=== PATIENT | female | born 1995 | race African-American/Black ===

== ENCOUNTER 2019-11-21 12:20 | Emergency (ER) | payer OTHER, SELFPAY ==
--- NOTE | ~2019-11-21 | US_ITS ---
EXAMINATION: US OB <=14 wk fetus w TV DATE: 11/21/2019 16:06 INDICATION: Vaginal spotting. Pelvic pain. TECHNIQUE: Real-time transabdominal and transvaginal obstetric ultrasound. FINDINGS: No prior studies for comparison. The uterus measures 9.8 x 7.2 x 6.4 cm. There is an intrauterine gestational sac, with pole maine ntified. The crown rump length measures 0.33 cm, which correlates with a estimated gestational age o f 6 weeks 0 days. Gestational sac diameter measures 1.64 cm corresponding to 6 week 2 day gestation. heart tones are identified measuring 99 bpm. There is a small subchorionic hemorrhage measuring 2.6 x 2.1 x 0.7 cm. There are bilateral ovarian cysts, largest on the right measuring 2.8 cm maximum dimension in largest on the left measuring 1.6 cm. Small amount of free fluid in the pelvis. IMPRESSION: 1. SL IUP with an EGA of 6 weeks, 1 days (EDC by current ultrasound of 07/15/2020). 2: Small subchorionic hemorrhage. 3: Bilateral ovarian cysts, largest in the right ovary measuring 2.8 x 2.6 x 2.4 cm. Reviewed, dictated and finalized at location A. STANT CREDIT MANAGER IMPRESSION: 1. SL IUP with an EGA of 6 weeks, 1 days (EDC by current ultrasound of 07/15/20 20). 2: Small subchorionic hemorrhage. 3: Bilateral ovarian cysts, largest in the right ovary measuring 2.8 x 2.6 x 2. 4 cm.
[2019-11-21 12:25] VITALS: BP 135/82; PULSE 106; RESP 20; TEMP 36.5; O2SAT 100
--- NOTE | 2019-11-21 12:48 | ED.FEMALEGU ---
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 She states that the pain sometimes radiates to her LLQ and describes the cramps as being worse than menstrual cramps. Pt denies any N/V/D, or dysuria. She notes that she has scheduled an appointment with an OB group, but has not been assigned an OBGYN yet. 2, Para 1, Abortus 0. Pt notes having a Hx of asthma and is a current every day smoker, but denies alcohol use. Pt reports having NKA. MD elicited complaint: vaginal bleeding (spotting) and other (RLQ ABD pain) Onset (ago): day(s) (a couple of days) Location of symptoms: RLQ Female Urogenital Radiation: LLQ Quality of pain: cramping Consistency: progressively worsening Patient : Yes (6 weeks) Related Data : 2 Para: 1 Total number of abortions (spontaneous and elective): 0 Home Medications Medication Instructions Recorded Confirmed 11/21/19 albuterol sulfate 11/21/19 Allergies Allergy/AdvReac Type Severity Reaction Status Date / Time No Known Allergies Allergy Verified 11/21/19 12:57 Review of Systems Review of Systems: All systems reviewed & are unremarkable except as noted in HPI and below Gastrointestinal: Gastrointestinal: Reports GI cramping (RLQ radiating to LLQ), Denies diarrhea, Denies nausea and Denies vomiting Genitourinary: Genitourinary: Reports abnormal vaginal bleeding (spotting) and Denies dysuria PMF Past Medical History Medical History (Updated 11/21/19 @ 15:24 by Kameron Rich MD) Asthma Surgical History Surgical History (Updated 11/21/19 @ 14:12 by KASH Juarez) Surgical history unknown Social History Social History (Updated 11/21/19 @ 14:13 by KASH Juarez) Smoking status: Current every day smoker Gender identity (if verbalized by the patient): Female Exam Narrative: Exam Narrative: General appearance: Well-developed, well-nourished Skin: Normal color Head: Normocephalic, nontraumatic Eyes: Clear conjunctiva ENT: Oropharynx normal, ears normal, nose normal Neck: Supple, nontender Chest and respiratory: Airway patent, no respiratory distress, no accessory muscle use Heart: Regular rate/rhythm Abdomen: Soft, nontender, no organomegaly, quiet bowel sounds Vascular: Normal peripheral pulses, normal capillary refill. 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, no gross motor deficit : General: Yes bladder normal to palpation and Yes no CVA tenderness External Female Exam: normal external appearance Speculum Exam - Vagina: normal appearance of the vagina and normal vaginal discharge Other: No vaginal bleeding Course Course Emergency Course: Unchanged, patient did not have any active bleeding since arrival to the emergency room until the time of discharge Vital Signs Vital signs: Vital Signs Temperature 36.5 C 11/21/19 12:25 Pulse Rate 106 H 11/21/19 12:25 Respiratory Rate 20 11/21/19 12:25 Blood Pressure 135/82 11/21/19 12:25 Pulse Oximetry 100 11/21/19 12:25 Temperature 36.5 C 11/21/19 12:25 Pulse Rate 106 H 11/21/19 12:25 Respiratory Rate 20 11/21/19 12:25 Blood Pressure 135/82 11/21/19 12:25 Pulse Oximetry 100 11/21/19 12:25 MDM - Female Genitourinary MDM Narrative Medical
[2019-11-21 13:15] LABS: Basophils Absolute Auto 0.1 K/mm3 (0.0-0.1); Basophils Percent Auto 0.9 % (0.2-1.2); Eosinophils Absolute Auto 0.3 K/mm3 (0-0.3); Eosinophils Percent Auto 4.2 % (0-4.4); Hemoglobin 11.4 g/dL (12.0-15.0); Immature Granulocyte Absolute 0.02 K/mm3 (0.00-0.031); Immature Granulocyte Percent A 0.3 % (0-0.5); Lymphocytes Absolute Auto 1.29 K/mm3 (0.9-3.2); Lymphocytes Percent Auto 18.7 % (18.3-44.2); Mean Corpuscular HGB Conc 33.5 g/dl (32-36); Mean Corpuscular Hemoglobin 28.8 pg (26-34); Mean Corpuscular Volume 85.9 fl (80-100); Mean Platelet Volume 9.6 fl (7.4-10.4); Monocytes Percent Auto 14.2 % (2.6-8.5); Neutrophils Absolute Auto 4.3 K/mm3 (1.3-6.7); Neutrophils Percent Auto 61.7 % (45.5-73.1); Platelet Count Result 343 k/mm3 (150-375); Red Blood Count 3.96 M/mm3 (4.2-5.4); Red Cell Distribution Width 13.3 % (11.5-14.5); White Blood Count 6.9 K/mm3 (4.5-10.0)
== END 2019-11-21 16:26 | disposition home or self-care (01) ==
PROVIDERS: Emergency Provider Emergency Medicine
DX: O26.891 Other specified pregnancy related conditions, first trimester (principal); R10.31 Right lower quadrant pain; O99.511 Diseases of the respiratory system complicating pregnancy, first trimester; J45.909 Unspecified asthma, uncomplicated; O99.331 Smoking (tobacco) complicating pregnancy, first trimester; F17.200 Nicotine dependence, unspecified, uncomplicated; Z3A.01 Less than 8 weeks gestation of pregnancy
CPT/HCPCS: 36415; 76801; 76817; 84702; 85025; 86850; 86900; 86901; 99284

== ENCOUNTER 2020-01-23 19:45 | Emergency (ER) | payer OTHER, SELFPAY ==
--- NOTE | ~2020-01-23 | XR_ITS ---
EXAMINATION: XR chest 1V portable INDICATION: Shortness of breath TECHNIQUE: Portable AP chest at 2025 COMPARISON: None available FINDINGS: There are minimal airspace opacities of the lung bases.. There is no pleural effusion or pn eumothorax. The cardiomediastinal silhouette is normal. The visualized bones and soft tissues are unr emarkable. IMPRESSION: 1. Minimal airspace opacities of the lung bases, consistent with atelectasis versus pneumonia. Reviewed, dictated and finalized at location A. IMPRESSION: 1. Minimal airspace opacities of the lung bases, consistent with atelectasis ve rsus pneumonia.
[2020-01-23 19:46] VITALS: BP 139/79; PULSE 99; RESP 24; TEMP 36.1; O2SAT 100
--- NOTE | 2020-01-23 20:05 | ED.ASTHMA ---
HPI - Asthma General Chief Complaint: Asthma Stated Complaint: sob/asthma Time Seen by Provider: 01/23/20 20:03 History of Present Illness HPI Narrative: Shortness of breath and chest tightness since last night. Associated with wheezing. She has asthma, but ran out of albuterol. She tried using someone elses nebulizer without improvement. She notes that this is worse than her typical asthma symptoms. No fever, cough. She is currently . Related Data Home Medications Medication Instructions Recorded Confirmed 11/21/19 albuterol sulfate 11/21/19 Allergies Allergy/AdvReac Type Severity Reaction Status Date / Time No Known Drug Allergies Allergy Unknown Verified 11/22/19 17:05 Review of Systems Review of Systems: All systems reviewed & are unremarkable except as noted in HPI and below Constitutional: Constitutional: Denies fever(s) ENT: Denies sore throat Cardiovascular: Cardiovascular: Denies chest pain Respiratory: Respiratory: Denies cough, Reports dyspnea and Reports wheezing Gastrointestinal: Gastrointestinal: Denies abdominal pain and Reports nausea Genitourinary: Genitourinary: Denies dysuria Neurologic: Denies numbness and Denies weakness [facility] Past Medical History Medical History Asthma Surgical History Surgical History Surgical history unknown Social History Social History Smoking status: Current every day smoker Gender identity (if verbalized by the patient): Female Exam Const: General: no acute distress and alert Orientation/consciousness: patient oriented x3 HENMT: Head: normal to inspection Chest: Chest palpation & inspection: normal inspection of the chest Resp: Effort & Inspection: tachypneic Auscultation: rhonchi lower bilaterally Cardio: Rate: regular rate Rhythm: regular rhythm GI: Other: Gravid abdomen Skin: General skin exam: normal color Neuro: General: patient oriented x3 and moves all extremities Speech: normal speech Extrem: General: normal to inspection and no edema Psych: Appearance: grossly normal Mental Status: mental status grossly normal Affect: normal affect Course Vital Signs Vital signs: Vital Signs Temperature 36.1 C L 01/23/20 19:46 Pulse Rate 99 01/23/20 19:46 Respiratory Rate 24 H 01/23/20 19:46 Blood Pressure 139/79 01/23/20 19:46 Pulse Oximetry 100 01/23/20 19:46 Temperature 36.1 C L 01/23/20 19:46 Pulse Rate 99 01/23/20 19:46 Respiratory Rate 24 H 01/23/20 19:46 Blood Pressure 139/79 01/23/20 19:46 Pulse Oximetry 100 01/23/20 21:51 MDM - Asthma MDM Narrative Medical decision making narrative: Lungs relatively clear on exam. CXR shows minimal bilateral basilar infiltrates. I will start azithromicin, refill her albuterol, and send testing for COVID-19. She does not reqire admission at this time. Differential Diagnosis Differential diagnosis: Likely Acute exacerbation, Pneumonia and other (COVID-19) Medical Records Attestation: I reviewed the patient's medical records. Lab Data Attestation: I reviewed the patient's lab results. Labs: Lab Results 01/23/20 Range/Units 21:57 SARS-CoV-2 RNA (RT-PCR) Pending Discharge Plan Discharge Clinical Impression: Community acquired pneumonia Qualifiers: Laterality: unspecified laterality Qualified Code(s): J18.9 - Pneumonia, unspecified organism Patient Disposition: Home, Self-Care Condition: Stable Instructions: Antibiotic Form, Community Acquired Pneumonia (ED) Prescriptions: New albuterol sulfate 90 mcg/actuation aerosol powdr breath activated 2 inhalation INHALATION Q4H PRN (Reason: shortness of breath or wheezing) Qty: 1 RF: 0 azithromycin 250 mg tablet See Rx Instructions .ROUTE .COMPLEX Qty: 6 RF: 0 No Action P
[2020-01-23] MEDS: AZITHROMYCIN 250 MG TABLET 500 MG PO (21:26)
[2020-01-23 21:51] VITALS: O2SAT 100
--- NOTE | 2020-01-23 22:01 | PC.NURSE ---
COVID 19 test performed and sent to lab.
[2020-01-24 15:09] LABS: SARS-CoV-2 RNA PCR Negative
== END 2020-01-23 21:48 | disposition home or self-care (01) ==
PROVIDERS: Emergency Provider Emergency Medicine
DX: J18.9 Pneumonia, unspecified organism (principal); Z20.828 Contact with and (suspected) exposure to other viral communicable diseases; F17.200 Nicotine dependence, unspecified, uncomplicated
CPT/HCPCS: 71045; 87635; 99283; A9270; U0003

== ENCOUNTER 2020-02-23 01:25 | Observation (INO) | payer OTHER, SELFPAY ==
[2020-02-23] VITALS (14 sets, daily range): BP systolic 123–145; BP diastolic 69–90; PULSE 89–105; TEMP 36.4; O2SAT 88–98
--- NOTE | ~2020-02-23 | US_ITS ---
EXAMINATION: US OB limited DATE: 02/23/2020 07:38 INDICATION: Abdominal pain. Check placenta. TECHNIQUE: Real-time ultrasound of the pelvis was performed. The interpreting radiologist was not pre sent for the study. COMPARISON: None. FINDINGS: There is a single living fetus in vertex presentation. The placenta is anterior and not low-lying wi th caudal margin 7.4 cm from the internal cervical os. There are several small hypoechoic venous henriquez s within the placenta. No evident subchorionic hematoma. heart rate is 154 beats per minute (bp m). The amniotic fluid volume is subjectively normal. IMPRESSION: 1. Single living fetus in vertex presentation with heart rate of 154 bpm. 2. Several venous lakes within the anterior placenta which is not low-lying and with no evident subch orionic hematoma. Reviewed, dictated and finalized at location A. IMPRESSION: 1. Single living fetus in vertex presentation with heart rate of 154 bpm . 2. Several venous lakes within the anterior placenta which is not low-lying and with no evident subchorionic hematoma.
--- NOTE | 2020-02-23 02:48 | OBADM ---
This patient, Sandhya Munoz, admitted to the OB room OB Post 117 for observation. Patient/family oriented to hospital policies and general routines including ID bracelet, bed and alarms, visiting hours, pain management, procedures, bathroom and other care routines, personal items, smoking policy, room service/diet, and visiting hours. Patient/Family are encouraged to report perceived risks to care and to ask questions if they do not understand what they are told or what they should do.
[2020-02-23 02:49] LABS: Add Urine Microscopic? NO; Appearance Urine Clear (Clear); Bacteria Urine Trace /hpf; Bilirubin Urine Negative (Negative); Blood Urine Negative (Negative); Color Urine Yellow (Yellow); Glucose Urine UA Negative (Negative); Ketones Urine Negative (Negative); Leukocyte Esterase Ur Negative LEU/UL (NEGATIVE); Mucus Urine Rare /lpf; Nitrate Urine Negative (Negative); Protein Urine Negative (Negative); RBC Urine 0-2 /hpf (0-2); Specific Grav Ur 1.021 (1.001-1.035); Squamous Epithelial Cell Urine Occasional /hpf (Few); Urobilinogen Urine Negative mg/dL (<2.0); WBC Urine 0-3 /hpf (0-3)
[2020-02-23] MEDS: CYCLOBENZAPRINE HCL 5 MG TABLET PO (03:41)
[2020-02-23 03:42] LABS: Basophils Absolute Auto 0.1 K/mm3 (0.0-0.1); Basophils Percent Auto 0.4 % (0.2-1.2); Eosinophils Absolute Auto 0.8 K/mm3 (0-0.3); Eosinophils Percent Auto 6.2 % (0-4.4); Hematocrit 29.9 % (37.0-47.0); Hemoglobin 10.1 g/dL (12.0-15.0); Immature Granulocyte Percent A 0.7 % (0-0.5); Mean Corpuscular HGB Conc 33.8 g/dl (32-36); Mean Corpuscular Hemoglobin 30.1 pg (26-34); Monocytes Absolute Auto 1.2 K/mm3 (0.1-0.6); Monocytes Percent Auto 8.6 % (2.6-8.5); Neutrophils Absolute Auto 8.5 K/mm3 (1.3-6.7); Neutrophils Percent Auto 62.1 % (45.5-73.1); Platelet Count Result 324 k/mm3 (150-375); Red Blood Count 3.36 M/mm3 (4.2-5.4); Red Cell Distribution Width 13.2 % (11.5-14.5); White Blood Count 13.7 K/mm3 (4.5-10.0)
[2020-02-23 03:46] LABS: Alanine Aminotransferase 36 U/L (4-35); Albumin Level 3.8 g/dL (3.5-5.1); Alkaline Phosphatase 57 U/L (38-126); Aspartate Amino Transferase 34 U/L (14-36); Bilirubin,Total 0.1 mg/dL (0.2-1.3); Blood Urea Nitrogen 9 mg/dL (7-17); Calcium 9.1 mg/dL (8.4-10.2); Carbon Dioxide 20 mmol/L (22-30); Chloride 106 mmol/L (98-107); Estimated Glomerular Filt Rate > 60; Glucose 88 mg/dL (65-105); Sodium 134 mmol/L (137-145); Uric Acid 2.8 mg/dL (2.5-7.5)
--- NOTE | 2020-02-23 08:00 | PC.NURSE ---
Dr. Larose at bedside. Ultrasound results reviewed and labs results seen. Discussed plan of care with pt. LUPER 154 on ultrasound. May D/C home with pain medication sent to pharmacy.
--- NOTE | 2020-02-23 08:03 | PM.IMHP ---
H&P: HPI History of Present Illness Chief complaint: Contractions Narrative: Sandhya Munoz is a 25 year old female 2 para 1001 at 20 weeks gestation who presents for lower abdominal pain. She has sharp bilateral lower abdominal pain. It radiates into her vulva. It is worse with movement. It is sharp. It is intermittent. It lasts minutes. Rest is palliative, movement is provocative. She denies any vaginal bleeding or watery vaginal discharge. She denies any contractions. She denies any nausea, vomiting, fever, chills. She denies any chest pain or shortness of breath. Review of Systems Constitutional: Constitutional: Reports no additional constitutional complaints, Denies fatigue, Denies headache(s), Denies lethargy and Denies weakness Eyes: Eyes: Reports no additional eye complaints, Denies blurry vision and Denies photophobia ENT: Reports as per HPI, Denies headache(s) and Denies neck pain Cardiovascular: Cardiovascular: Denies chest pain, Denies diaphoresis, Denies leg edema, Denies palpitations and Denies dyspnea Respiratory: Respiratory: Denies hemoptysis, Denies dyspnea and Denies wheezing Gastrointestinal: Gastrointestinal: Denies abdominal pain, Denies melena, Denies bloating, Denies hematochezia, Denies nausea and Denies vomiting Genitourinary: Genitourinary: Reports no additional female genitourinary complaints Musculoskeletal: Musculoskeletal: Denies joint swelling, Denies neck pain, Denies numbness and Denies stiffness Neurologic: Denies Abnormal speech present, Denies confusion, Denies headache(s), Denies numbness and Denies weakness Psychiatric: Psychiatric: Denies anxiety, Denies confusion, Denies depression, Denies homicidal ideation and Denies suicidal ideation Endocrine: Endocrine: Denies fatigue and Denies palpitations Allergic/Immunologic: Allergic/Immunologic: Denies wheezing [facility] Social History Social History Smoking status: Current every day smoker Gender identity (if verbalized by the patient): Female Meds Home Medications and Allergies Home Medications Medication Instructions Recorded Confirmed Type 11/21/19 History albuterol sulfate 11/21/19 History albuterol sulfate 2 inhalation INHALATION Q4H PRN #1 01/23/20 Rx each azithromycin See Rx Instructions .ROUTE 01/23/20 Rx .COMPLEX #6 tablet Allergies Allergy/AdvReac Type Severity Reaction Status Date / Time No Known Drug Allergies Allergy Unknown Verified 11/22/19 17:05 Vital Signs Vital Signs - 24 hr 02/23/20 01:50 02/23/20 01:55 02/23/20 01:57 Pulse Rate 91 Blood Pressure 136/71 Pulse Oximetry 96 96 02/23/20 02:00 02/23/20 02:05 02/23/20 02:10 Pulse Rate 101 H Blood Pressure 123/90 Pulse Oximetry 96 97 98 02/23/20 02:11 02/23/20 02:15 02/23/20 02:16 Pulse Rate 90 Blood Pressure 134/76 Pulse Oximetry 97 88 L 02/23/20 02:18 02/23/20 02:21 02/23/20 03:46 Pulse Rate 90 97 Blood Pressure 132/80 145/73 H Pulse Oximetry 96 02/23/20 07:10 Pulse Rate 97 Blood Pressure 130/69 Pulse Oximetry Exam Const: General: healthy appearing, comfortable and no acute distress; No confusion Orientation/consciousness: No confusion Eyes: Direct Ophthalmoscopy: No photophobia Resp: Auscultation: clear to auscultation bilaterally, no rales, no rhonchi and no wheezes Cardio: Rate: regular rate Heart sounds: no click, no murmurs and no rubs GI: Inspection: non-distended GI Palp: No abdominal tenderness Auscultation: normal bowel sounds : Manual OB Exam: dilated (Closed, thick, high) Neuro: General: No confusion Speech: No Abnormal speech present Extrem: General: normal to inspection, no pedal edema and no calf tenderness H&P: Results Labs Labs: Short CBC 02/23/20 Range/Units 03:28 WBC 13.7 H (4.5-10.0) K/mm3 Hgb 10.1 L (12.0-15.0) g/dL Hct 29.9 L (37.0-47.0)
== END 2020-02-23 09:06 | disposition home or self-care (01) ==
PROVIDERS: Advanced Practice Midwife; Admitting Provider Obstetrics & Gynecology; Visit Provider Obstetrics & Gynecology
DX: O26.892 Other specified pregnancy related conditions, second trimester (principal); R10.2 Pelvic and perineal pain; O99.332 Smoking (tobacco) complicating pregnancy, second trimester; F17.210 Nicotine dependence, cigarettes, uncomplicated; Z3A.20 20 weeks gestation of pregnancy
CPT/HCPCS: 36415; 76815; 80053; 81003; 84550; 85025; 87086; A9270; G0378; G0379

== ENCOUNTER 2020-04-01 14:24 | Observation (INO) | payer OTHER, SELFPAY ==
[2020-04-01 14:50] VITALS: BMI 32.5
[2020-04-01 16:08] LABS: Add Urine Microscopic? NO; Appearance Urine Clear (Clear); Bilirubin Urine Negative (Negative); Blood Urine Negative (Negative); Color Urine Straw (Yellow); Glucose Urine UA Negative (Negative); Ketones Urine Negative (Negative); Leukocyte Esterase Ur Negative LEU/UL (NEGATIVE); Nitrate Urine Negative (Negative); Protein Urine Negative (Negative); Specific Grav Ur 1.015 (1.001-1.035); Urobilinogen Urine Negative mg/dL (<2.0)
[2020-04-01 16:26] VITALS: BP 121/76; PULSE 87
--- NOTE | 2020-04-30 07:39 | P.PNOB_ITS ---
OB - Triage/Final Diagnosis Visit Information Date of evaluation: 04/01/20 Evaluation Laboratory results: Laboratory Tests 04/01/20 15:46 Urine Color Straw Urine Appearance Clear Urine pH 7.0 Ur Specific [place] 1.015 Urine Protein Negative Urine Glucose (UA) Negative Urine Ketones Negative Ur Blood (Man) Negative Urine Nitrate Negative Urine Bilirubin Negative Urine Urobilinogen Negative Ur Leukocyte Esterase Negative Final Diagnosis (1) False labor: Code(s): O47.9 - False labor, unspecified Status: Acute
== END 2020-04-01 16:55 | disposition home or self-care (01) ==
PROVIDERS: Admitting Provider Obstetrics & Gynecology; Visit Provider Obstetrics & Gynecology
DX: O47.02 False labor before 37 completed weeks of gestation, second trimester (principal); Z3A.25 25 weeks gestation of pregnancy
CPT/HCPCS: 81003; 87086; G0378; G0379

== ENCOUNTER 2020-04-15 14:38 | Outpatient (RCR) | payer OTHER, SELFPAY ==
[2020-04-15 16:17] LABS: Hematocrit 29.8 % (37.0-47.0); Hemoglobin 9.9 g/dL (12.0-15.0)
[2020-04-15 16:31] LABS: Glucose 1 Hour PP 50gm Dose 126 mg/dL
[2020-04-15 17:10] LABS: HIV 1/2 Ab P24 Ag Result Negative (Negative)
[2020-04-16 11:22] LABS: Rapid Plasma Reagin Non-Reactive (NonReactive)
[2020-04-16] MEDS: RHO(D) IMMUNE GLOBULIN 300 MCG SYRINGE IM (14:30)
== END 2020-07-14 23:59 | disposition home or self-care (01) ==
LOC: ANHLAB 14:38
PROVIDERS: Visit Provider Obstetrics & Gynecology
DX: Z29.13 Encounter for prophylactic Rho(D) immune globulin (principal); Z11.4 Encounter for screening for human immunodeficiency virus [HIV]; O36.0130 Maternal care for anti-D [Rh] antibodies, third trimester, not applicable or unspecified; Z3A.00 Weeks of gestation of pregnancy not specified
CPT/HCPCS: 36415; 82947; 85014; 85018; 85461; 86592; 86703; 90384; 96372; G0432; J2790

== ENCOUNTER 2020-04-30 11:59 | Outpatient (RCR) | payer OTHER, SELFPAY ==
--- NOTE | ~2020-04-30 | US_ITS ---
EXAMINATION: US OB follow up DATE: 04/30/2020 13:21 INDICATION: Diabetes and growth assessment, third trimester TECHNIQUE: Real-time ultrasound of the pelvis was performed. The interpreting radiologist was not pre sent for the study. COMPARISON: 02/23/2020 FINDINGS: There is a single living fetus in vertex presentation. The placenta is fundal. cardia c activity and movement are noted. heart rate is 130 beats per minute (bpm). The amniotic fluid index is 12.2 cm which is normal. The following biometric data were obtained: Biparietal diameter (BPD): 6.9 cm; head circumference (HC): 25.3 cm; abdominal circumference (AC): 23 .8 cm; femur length (FL): 5.2 cm. These measurements are concordant. Estimated weight is 1161 g +/- 174 g, which correlates with the 4th percentile when 07/12/2020 i s used as estimated date of delivery. As single measurements, these parameters are each equal to the following estimated gestational ages w ith ranges of +/- 2 standard deviations: BPD: 28 weeks 0 days +/- 2 weeks 1 days. HC: 27 weeks 4 days +/- 2 weeks 0 days. AC: 28 weeks 1 days +/- 2 weeks 1 days. FL: 28 weeks 0 days +/- 2 weeks 1 days. estimated gestational age based solely on measurements from this exam is 28 weeks 0 days +/- 2 weeks 0 days. IMPRESSION: 1. Single living fetus in vertex presentation. 2. Normal amniotic fluid index. 3. Estimated weight is 1161 g +/- 174 g, which correlates with the 4th percentile when 0 is used as estimated date of delivery. Reviewed, dictated and finalized at location B. IMPRESSION: 1. Single living fetus in vertex presentation. 2. Normal amniotic fluid index. 3. Estimated weight is 1161 g +/- 174 g, which correlates with the 4th pe rcentile when 07/12/2020 is used as estimated date of delivery.
[2020-04-30 13:53] VITALS: BP 135/69; PULSE 98
== END 2020-07-04 09:57 | disposition home or self-care (01) ==
LOC: ANHOBOP 11:59
PROVIDERS: Visit Provider Obstetrics & Gynecology
DX: O36.8130 Decreased fetal movements, third trimester, not applicable or unspecified (principal); Z3A.29 29 weeks gestation of pregnancy
CPT/HCPCS: 59025; 76816

== ENCOUNTER 2020-05-30 12:27 | Outpatient (CLI) | payer OTHER, SELFPAY ==
[2020-05-30] VITALS (7 sets, daily range): BP systolic 125–135; BP diastolic 70–89; PULSE 94–101
[2020-05-30 13:27] LABS: Basophils Absolute Auto 0.1 K/mm3 (0.0-0.1); Basophils Percent Auto 0.4 % (0.2-1.2); Eosinophils Absolute Auto 0.3 K/mm3 (0-0.3); Eosinophils Percent Auto 2.9 % (0-4.4); Hematocrit 30.9 % (37.0-47.0); Hemoglobin 10.2 g/dL (12.0-15.0); Immature Granulocyte Absolute 0.08 K/mm3 (0.00-0.031); Immature Granulocyte Percent A 0.7 % (0-0.5); Lymphocytes Absolute Auto 1.94 K/mm3 (0.9-3.2); Lymphocytes Percent Auto 16.6 % (18.3-44.2); Mean Corpuscular Hemoglobin 29.1 pg (26-34); Mean Platelet Volume 9.7 fl (7.4-10.4); Monocytes Absolute Auto 0.9 K/mm3 (0.1-0.6); Monocytes Percent Auto 7.6 % (2.6-8.5); Neutrophils Absolute Auto 8.4 K/mm3 (1.3-6.7); Neutrophils Percent Auto 71.8 % (45.5-73.1); Platelet Count Result 348 k/mm3 (150-375); Red Blood Count 3.51 M/mm3 (4.2-5.4); Red Cell Distribution Width 13.3 % (11.5-14.5); White Blood Count 11.7 K/mm3 (4.5-10.0)
[2020-05-30 13:40] LABS: Alanine Aminotransferase 22 U/L (4-35); Albumin Level 4.1 g/dL (3.5-5.1); Alkaline Phosphatase 95 U/L (38-126); Anion Gap 9 mmol/L (8-16); Aspartate Amino Transferase 31 U/L (14-36); Bilirubin,Total 0.7 mg/dL (0.2-1.3); Blood Urea Nitrogen 9 mg/dL (7-17); Calcium 9.2 mg/dL (8.4-10.2); Carbon Dioxide 21 mmol/L (22-30); Chloride 105 mmol/L (98-107); Estimated Glomerular Filt Rate > 60; Glucose 69 mg/dL (65-105); Sodium 135 mmol/L (137-145); Uric Acid 3.8 mg/dL (2.5-7.5)
--- NOTE | 2020-05-30 14:13 | PC.NURSE ---
Constantino TAMAYOM informed of blood work results, reactive NST, and BP's. Pt just voided for me. OK to discharge pt to home with Hyplertension in Pregancy precautions.
[2020-05-30 14:39] LABS: Add Urine Microscopic? YES; Appearance Urine Clear (Clear); Bacteria Urine Trace /hpf; Bilirubin Urine Negative (Negative); Blood Urine Negative (Negative); Color Urine Yellow (Yellow); Glucose Urine UA Negative (Negative); Ketones Urine 1+ mg/dL (Negative); Leukocyte Esterase Ur Negative LEU/UL (Negative); Mucus Urine Rare /lpf; Nitrate Urine Negative (Negative); Protein Urine Negative (Negative); RBC Urine 0-2 /hpf (0-2); Specific Grav Ur 1.018 (1.001-1.035); Squamous Epithelial Cell Urine Occasional /hpf (Few); Urobilinogen Urine Negative mg/dL (<2.0); WBC Urine 0-3 /hpf
[2020-05-30 14:47] LABS: Creatinine Urine 127.6 mg/dL; Total Protein Urine Random 9 mg/dL
== END 2020-05-30 14:15 | disposition home or self-care (01) ==
LOC: ANHOBOP 12:39 → ANHLDR 12:41
PROVIDERS: PCP Advanced Practice Midwife; Visit Provider Obstetrics & Gynecology
DX: O13.9 Gestational [pregnancy-induced] hypertension without significant proteinuria, unspecified trimester (principal); Z3A.00 Weeks of gestation of pregnancy not specified
CPT/HCPCS: 36415; 59025; 80053; 81001; 82570; 84156; 84550; 85025; 99199

== ENCOUNTER 2020-06-02 23:35 | Observation (INO) | payer OTHER, SELFPAY ==
[2020-06-02 23:50] VITALS: PULSE 109; O2SAT 97
[2020-06-02 23:53] VITALS: BP 135/83; PULSE 113
[2020-06-02 23:55] VITALS: PULSE 109; O2SAT 97
[2020-06-03] VITALS (71 sets, daily range): BP systolic 130–144; BP diastolic 66–85; PULSE 98–129; TEMP 36.7; O2SAT 94–100
[2020-06-03 01:05] LABS: Basophils Percent Auto 0.3 % (0.2-1.2); Eosinophils Absolute Auto 0.7 K/mm3 (0-0.3); Eosinophils Percent Auto 5.2 % (0-4.4); Hematocrit 27.5 % (37.0-47.0); Hemoglobin 9.2 g/dL (12.0-15.0); Immature Granulocyte Absolute 0.11 K/mm3 (0.00-0.031); Immature Granulocyte Percent A 0.9 % (0-0.5); Lymphocytes Absolute Auto 2.31 K/mm3 (0.9-3.2); Lymphocytes Percent Auto 17.9 % (18.3-44.2); Mean Corpuscular HGB Conc 33.5 g/dl (32-36); Mean Corpuscular Hemoglobin 29.5 pg (26-34); Mean Corpuscular Volume 88.1 fl (80-100); Mean Platelet Volume 9.7 fl (7.4-10.4); Monocytes Absolute Auto 1.1 K/mm3 (0.1-0.6); Monocytes Percent Auto 8.1 % (2.6-8.5); Neutrophils Absolute Auto 8.7 K/mm3 (1.3-6.7); Neutrophils Percent Auto 67.6 % (45.5-73.1); Platelet Count Result 341 k/mm3 (150-375); Red Blood Count 3.12 M/mm3 (4.2-5.4); Red Cell Distribution Width 13.4 % (11.5-14.5); White Blood Count 12.9 K/mm3 (4.5-10.0)
[2020-06-03 01:10] LABS: Add Urine Microscopic? YES; Amorphous Sediment Urine Few; Appearance Urine Cloudy (Clear); Bacteria Urine 2+ /hpf; Bilirubin Urine Negative (Negative); Blood Urine Negative (Negative); Color Urine Yellow (Yellow); Glucose Urine UA 1+ mg/dL (Negative); Ketones Urine Negative (Negative); Leukocyte Esterase Ur 1+ LEU/UL (NEGATIVE); Mucus Urine Rare /lpf; Nitrate Urine Negative (Negative); Protein Urine Negative (Negative); RBC Urine 0-2 /hpf (0-2); Specific Grav Ur 1.016 (1.001-1.035); Squamous Epithelial Cell Urine Many /hpf (Few)
[2020-06-03 01:17] LABS: Alanine Aminotransferase 22 U/L (4-35); Albumin Level 3.4 g/dL (3.5-5.1); Alkaline Phosphatase 77 U/L (38-126); Anion Gap 6 mmol/L (8-16); Aspartate Amino Transferase 27 U/L (14-36); Bilirubin,Total 0.4 mg/dL (0.2-1.3); Blood Urea Nitrogen 6 mg/dL (7-17); Calcium 9.1 mg/dL (8.4-10.2); Carbon Dioxide 22 mmol/L (22-30); Chloride 106 mmol/L (98-107); Estimated Glomerular Filt Rate > 60; Glucose 112 mg/dL (65-105); Potassium 3.5 mmol/L (3.4-5.0); Sodium 134 mmol/L (137-145); Uric Acid 3.3 mg/dL (2.5-7.5)
--- NOTE | 2020-06-03 05:50 | PC.NURSE ---
pt called out c/o difficulty breathing. assessment performed and dr jordan given udpate. orders received from dr jordan to have pt evaluated in emergency room. ed charge nurse notified of pt transfer.
--- NOTE | 2020-06-03 07:21 | OBADM ---
This patient, Sandhya Munoz, admitted to the OB room OB Post 113 for observation. Patient/family oriented to hospital policies and general routines including ID bracelet, bed and alarms, visiting hours, pain management, procedures, bathroom and other care routines, personal items, smoking policy, room service/diet, and visiting hours. Patient/Family are encouraged to report perceived risks to care and to ask questions if they do not understand what they are told or what they should do.
--- NOTE | 2020-06-24 08:11 | P.PNOB_ITS ---
OB - Triage/Final Diagnosis Evaluation Laboratory results: Laboratory Tests 06/03/20 06/03/20 06/03/20 00:42 00:42 00:42 WBC 12.9 H RBC 3.12 L Hgb 9.2 L Hct 27.5 L MCV 88.1 MCH 29.5 MCHC 33.5 RDW 13.4 Plt Count 341 MPV 9.7 Immature Gran % (Auto) 0.9 H Neut % (Auto) 67.6 Lymph % (Auto) 17.9 L [place] % (Auto) 8.1 Eos % (Auto) 5.2 H Baso % (Auto) 0.3 Lymph # (Auto) 2.31 [place] # (Auto) 1.1 H Eos # (Auto) 0.7 H Baso # (Auto) 0.0 Abs Immat Gran (auto) 0.11 H Absolute Neuts (auto) 8.7 H Absolute Nucleated RBC 0.0 Nucleated RBC % 0.0 Sodium 134 L Potassium 3.5 Chloride 106 Carbon Dioxide 22 Anion Gap 6 L BUN 6 L Creatinine 0.50 L Estim Creat Clear Calc Not Reportable Estimated GFR > 60 Glucose 112 H Uric Acid 3.3 Calcium 9.1 Total Bilirubin 0.4 AST 27 ALT 22 Alkaline Phosphatase 77 Total Protein 7.0 Albumin 3.4 L Urine Color Yellow Urine Appearance Cloudy H Urine pH 6.0 Ur Specific [place] 1.016 Urine Protein Negative Urine Glucose (UA) 1+ H Urine Ketones Negative Ur Blood (Man) Negative Urine Nitrate Negative Urine Bilirubin Negative Urine Urobilinogen 4.0 H Ur Leukocyte Esterase 1+ H Urine RBC 0-2 Urine WBC 4-6 H Ur Squamous Epith Cells Many H Amorphous Sediment Few H Urine Bacteria 2+ H Urine Mucus Rare Final Diagnosis (1) Gestational hypertension: Code(s): O13.9 - Gestational [-induced] hypertension without significant proteinuria, unspecified trimester Status: Acute
== END 2020-06-03 06:00 | disposition short-term general hospital (02) ==
PROVIDERS: Admitting Provider Obstetrics & Gynecology; Visit Provider Obstetrics & Gynecology
DX: O13.3 Gestational [pregnancy-induced] hypertension without significant proteinuria, third trimester (principal); Z3A.34 34 weeks gestation of pregnancy
CPT/HCPCS: 36415; 80053; 81001; 84550; 85025; 87086; G0378; G0379

== ENCOUNTER 2020-06-03 06:09 | Emergency (ER) | payer OTHER, SELFPAY ==
--- NOTE | ~2020-06-03 | US_ITS ---
EXAMINATION: US venous doppler [facility] DATE: 06/03/2020 07:44 INDICATION: Shortness of breath TECHNIQUE: Deras scale images without and with compression and Doppler images of the bilateral lower e xtremity veins were obtained. COMPARISON: None FINDINGS: The right common femoral vein, profunda femoral vein, femoral vein, popliteal vein, peroneal trunk, p osterior tibial veins, and greater saphenous vein are patent. The left common femoral vein, profunda femoral vein, femoral vein, popliteal vein, peroneal trunk, po sterior tibial veins, and greater saphenous vein are patent. IMPRESSION: 1. Patent bilateral lower extremity veins. No evidence of deep venous thrombosis. Reviewed, dictated and finalized at location A. IMPRESSION: 1. Patent bilateral lower extremity veins. No evidence of deep venous thrombosi s.
--- NOTE | ~2020-06-03 | XR_ITS ---
EXAMINATION: XR chest 2V DATE: 06/03/2020 06:49 INDICATION: Shortness of breath TECHNIQUE: PA and lateral views of the chest are obtained. COMPARISON: 01/23/2020 FINDINGS: The lungs are free of acute opacities. There is no pleural effusion or pneumothorax. The ca rdiomediastinal silhouette is normal. The visualized bones and soft tissues are unremarkable. IMPRESSION: 1. No acute cardiopulmonary abnormality. Reviewed, dictated and finalized at location A.
--- NOTE | ~2020-06-03 | CT_ITS ---
EXAMINATION: CTA chest PE protocol DATE: 06/03/2020 09:29 INDICATION: Shortness of breath. TECHNIQUE: Computed tomography angiography (CTA) of the chest was performed with 100 mL Omnipaque-350 intravenous contrast timed to evaluate the pulmonary arteries. Coronal maximum intensity projection 3D-reconstructions were created by the technologist. Automated exposure control and iterative reconst ruction technique were employed. The dose-length product was 718.59 mGy-cm. COMPARISON: Chest CT 02/07/2019 FINDINGS: There is mild atelectasis bilaterally. There are patchy groundglass opacities in right lung apex. There are mild groundglass opacities in left upper lobe and right middle lobe. No pleural effu tico. The heart size is normal. No pericardial effusion. There is no pulmonary embolus. The bones are unremarkable. IMPRESSION: 1. No pulmonary embolus. Sensitivity is severely decreased by motion artifact. 2. Mild patchy groundglass opacities in the upper lobes and right middle lobe. These findings are mariaelena picious for atypical pneumonia such as COVID-19 pneumonia. Reviewed, dictated and finalized at location A. IMPRESSION: 1. No pulmonary embolus. Sensitivity is severely decreased by motion artifact. 2. Mild patchy groundglass opacities in the upper lobes and right middle lobe. These findings are suspicious for atypical pneumonia such as COVID-19 pneumonia .
[2020-06-03 06:13] VITALS: BP 141/81; PULSE 104; RESP 20; TEMP 36.2; O2SAT 98
--- NOTE | 2020-06-03 06:21 | ECG_ITS ---
Measurements Intervals [place] Rate: 101 P: 57 WV: 170 QRS: 54 QRSD: 88 T: 30 QT: 326 QTc: 422 Interpretive Statements SINUS TACHYCARDIA EARLY PRECORDIAL R/S TRANSITION BASELINE ARTIFACT- I, II, III, AVL, AVF, V6 BORDERLINE ECG Electronically Signed On 06-03-2020 10:38:34 CDT by Danial Walker D.O.
--- NOTE | 2020-06-03 07:03 | ED.SOB ---
HPI - SOB/Dyspnea General Chief Complaint: Shortness of Breath/Dyspnea Stated Complaint: sob Time Seen by Provider: 06/03/20 07:02 Source: patient and family Mode of arrival: wheelchair Limitations: no limitations History of Present Illness HPI Narrative: Patient is a 25-year-old female G2, P1 currently 34 weeks who presents for evaluation of shortness of breath. Patient states she has a history of asthma and has experienced some wheezing and shortness of breath over the past week. She also reports some right-sided chest pain that is worse with inspiration. She states that the shortness of breath has been quite constant over the past 24 to 48 hours. She states symptoms were exacerbated this weekend when they were moving and unpacking some heavy, mary boxes. Patient is without any of her albuterol inhalers. She states she last had an asthma exacerbation about a month ago and had albuterol at home and was able to treat her symptoms at home. Patient reports the chest pain over the right side of her chest is worsened with inspiration. She states it does contribute to her shortness of breath. She denies history of blood clot, but states that she has had bilateral lower extremity swelling, at times greater on the right with right-sided calf pain. Patient follows with Dr. Larose for this . Patient was evaluated by OB prior to this visit and then sent over here for other medical clearance. Related Data Home Medications Medication Instructions Recorded Confirmed PNV b#95-ferrous fumarate-FA 1 tablet PO DAILY 05/30/20 05/30/20 [] Allergies Allergy/AdvReac Type Severity Reaction Status Date / Time No Known Drug Allergies Allergy Unknown Verified 11/22/19 17:05 Review of Systems Review of Systems: Narrative: CONSTITUTIONAL: Denies fever, chills EYES: Denies visual changes ENT: Denies rhinorrhea, congestion CARDIOVASCULAR: Denies chest pain, palpitations, or edema. RESPIRATORY: Denies cough, reports shortness of breath GASTROINTESTINAL: Denies abdominal pain, nausea, vomiting, or diarrhea. GENITOURINARY: Denies dysuria or hematuria. SKIN: Denies rash or itching. MUSCULOSKELETAL: Denies back pain, joint pain, or myalgia. NEUROLOGIC: Denies headache, numbness, or weakness. [facility] Past Medical History Medical History Asthma Social History Social History (Updated 06/03/20 @ 07:19 by Abbi Barone MD) Smoking status: Former smoker Alcohol intake: never Substance use: never Gender identity (if verbalized by the patient): Female Exam Narrative: Exam Narrative: GENERAL: Awake, alert, conversant HEAD: Normocephalic, atraumatic. EYES: PERRLA and EOMI. ENT: Nares clear, no rhinorrhea or epistaxis. Mucous membranes moist. NECK: Supple. CHEST: No respiratory distress, breathing even and non labored, pleuritic chest pain, no reproducible chest wall tenderness, bilateral expiratory wheezing HEART: Tachycardic rate, sinus rhythm ABDOMEN:Non distended, non tender EXTREMITIES: Normal range of motion. No edema. Right-sided calf tenderness. SKIN: Warm, dry, no rash. NEURO:No focal deficits. Alert and oriented x3 Course Vital Signs Vital signs: Vital Signs Temperature 36.2 C L 06/03/20 06:13 Pulse Rate 104 H 06/03/20 06:13 Respiratory Rate 20 06/03/20 06:13 Blood Pressure 141/81 H 06/03/20 06:13 Pulse Oximetry 98 06/03/20 06:13 Temperature 36.2 C L 06/03/20 06:13 Pulse Rate 110 H 06/03/20 09:05 Respiratory Rate 18 06/03/20 09:05 Blood Pressure 132/72 06/03/20 09:05 Pulse Oximetry 99 06/03/20 09:05 MDM - SOB/Dyspnea MDM Narrative Medical decision making narrative: Patient presented for evaluation of shortness of breath after being seen over at our OB facility. At the time of assessment, patient is mildly tachycardic, no hypoxia. Patient does have wheezing on exam. Otherwise laboratory results are
--- NOTE | 2020-06-03 07:10 | PC.NURSE ---
Pt in ultrasound at this time
[2020-06-03] MEDS: ALBUTEROL SULFATE NEB 2.5 MG/0.5 ML INH 5 MG INHALATION (07:38)
[2020-06-03] MEDS: IPRATROPIUM BR 0.02% INH SOLN 0.5 MG/2.5 ML VIAL INHALATION (07:40)
[2020-06-03 07:42] VITALS: PULSE 128; RESP 25
[2020-06-03 07:52] VITALS: PULSE 108; RESP 21
[2020-06-03 08:01] LABS: Basophils Percent Auto 0.2 % (0.2-1.2); Eosinophils Absolute Auto 0.7 K/mm3 (0-0.3); Eosinophils Percent Auto 5.8 % (0-4.4); Hematocrit 30.6 % (37.0-47.0); Hemoglobin 10.4 g/dL (12.0-15.0); Immature Granulocyte Absolute 0.07 K/mm3 (0.00-0.031); Immature Granulocyte Percent A 0.6 % (0-0.5); Lymphocytes Percent Auto 15.9 % (18.3-44.2); Mean Corpuscular Hemoglobin 29.8 pg (26-34); Mean Corpuscular Volume 87.7 fl (80-100); Mean Platelet Volume 9.8 fl (7.4-10.4); Monocytes Absolute Auto 1.1 K/mm3 (0.1-0.6); Monocytes Percent Auto 8.7 % (2.6-8.5); Neutrophils Absolute Auto 8.6 K/mm3 (1.3-6.7); Neutrophils Percent Auto 68.8 % (45.5-73.1); Platelet Count Result 368 k/mm3 (150-375); Red Blood Count 3.49 M/mm3 (4.2-5.4); Red Cell Distribution Width 13.6 % (11.5-14.5); White Blood Count 12.6 K/mm3 (4.5-10.0)
[2020-06-03 08:12] LABS: NT Pro B Type Natriuretic Pept 28 PG/ML (5-100)
[2020-06-03 08:16] LABS: D Dimer 1.65 ug/mL (<0.48)
[2020-06-03 09:05] VITALS: BP 132/72; PULSE 110; RESP 18; O2SAT 99
[2020-06-03 10:27] VITALS: BP 132/72; PULSE 103; RESP 20; O2SAT 98
[2020-06-03 20:27] LABS: SARS-CoV-2 RNA PCR Negative
== END 2020-06-03 10:35 | disposition home or self-care (01) ==
PROVIDERS: Emergency Provider Emergency Medicine
DX: O99.519 Diseases of the respiratory system complicating pregnancy, unspecified trimester (principal); J18.9 Pneumonia, unspecified organism; J45.21 Mild intermittent asthma with (acute) exacerbation; Z20.828 Contact with and (suspected) exposure to other viral communicable diseases; Z87.891 Personal history of nicotine dependence; R00.0 Tachycardia, unspecified; Z3A.34 34 weeks gestation of pregnancy
CPT/HCPCS: 36415; 71046; 71275; 83880; 85025; 85380; 87635; 93005; 93970; 94640; 99284; C9803; Q9967; U0003

== ENCOUNTER 2020-06-18 15:59 | Observation (INO) | payer OTHER, SELFPAY ==
--- NOTE | 2020-06-18 15:59 | OBADM ---
This patient, Sandhya Voss, admitted to the OB room Labor/Delivery/Recovery 106 for observation. Patient/family oriented to hospital policies and general routines including ID bracelet, bed and alarms, visiting hours, pain management, procedures, bathroom and other care routines, personal items, smoking policy, room service/diet, and visiting hours. Patient/Family are encouraged to report perceived risks to care and to ask questions if they do not understand what they are told or what they should do.
[2020-06-18 17:00] VITALS: RESP 18
[2020-06-18 17:18] VITALS: BMI 34.2
--- NOTE | 2020-06-18 17:24 | PC.NURSE ---
Discharge instructions reviewed with patient, patient states understanding of discharge instructions and agrees with discharge. Patient instructed to follow-up at regularly scheduled OB appointment.
--- NOTE | 2020-07-11 08:12 | PM.OBTRLD ---
OB - Triage/Final Diagnosis Final Diagnosis (1) False labor: Code(s): O47.9 - False labor, unspecified Status: Acute
--- NOTE | 2020-07-15 07:41 | PM.OBTRLD ---
OB - Triage/Final Diagnosis Final Diagnosis (1) False labor: Code(s): O47.9 - False labor, unspecified Status: Acute
== END 2020-06-18 17:24 | disposition home or self-care (01) ==
PROVIDERS: Admitting Provider Obstetrics & Gynecology; Visit Provider Obstetrics & Gynecology
DX: O47.9 False labor, unspecified (principal); Z3A.00 Weeks of gestation of pregnancy not specified
CPT/HCPCS: G0378; G0379

== ENCOUNTER 2020-07-03 13:39 | Inpatient (IN) | payer OTHER, SELFPAY ==
[2020-07-03] VITALS (16 sets, daily range): BP systolic 121–149; BP diastolic 62–91; PULSE 87–114; TEMP 36.6–37.2; BMI 36.1
--- NOTE | 2020-07-03 13:49 | LDADM ---
This patient, Sandhya Voss, was admitted to Labor/Delivery/Recovery 109 on 07/03/20 at 13:39. Plans for labor, pain management and were discussed with patient. Patient/family oriented to hospital policies and general routines including ID bracelet, bed and alarms, visiting hours, pain management, procedures, bathroom and other care routines, personal items, smoking policy, room service/diet and guest tray routines, infant security routines, and visiting hours. Patient/Family are encouraged to report perceived risks to care and to ask questions if they do not understand what they are told or what they should do. See OBIX for further documentation.
[2020-07-03 14:44] LABS: Alanine Aminotransferase 18 U/L (4-35); Albumin Level 3.4 g/dL (3.5-5.1); Alkaline Phosphatase 95 U/L (38-126); Anion Gap 7 mmol/L (8-16); Aspartate Amino Transferase 29 U/L (14-36); Bilirubin,Total 0.7 mg/dL (0.2-1.3); Blood Urea Nitrogen 7 mg/dL (7-17); Carbon Dioxide 22 mmol/L (22-30); Chloride 106 mmol/L (98-107); Estimated CRCL calculation 165 ml/min; Estimated Glomerular Filt Rate > 60; Glucose 132 mg/dL (65-105); Potassium 3.8 mmol/L (3.4-5.0); Sodium 135 mmol/L (137-145)
[2020-07-03] MEDS: DINOPROSTONE 10 MG VAG INSERT VAGINAL (14:46)
[2020-07-03 18:42] LABS: Basophils Percent Auto 0.3 % (0.2-1.2); Eosinophils Absolute Auto 0.3 K/mm3 (0-0.3); Eosinophils Percent Auto 2.8 % (0-4.4); Hematocrit 29.8 % (37.0-47.0); Hemoglobin 9.8 g/dL (12.0-15.0); Immature Granulocyte Absolute 0.09 K/mm3 (0.00-0.031); Immature Granulocyte Percent A 0.7 % (0-0.5); Lymphocytes Absolute Auto 2.12 K/mm3 (0.9-3.2); Lymphocytes Percent Auto 17.2 % (18.3-44.2); Mean Corpuscular HGB Conc 32.9 g/dl (32-36); Mean Corpuscular Volume 88.2 fl (80-100); Monocytes Absolute Auto 0.8 K/mm3 (0.1-0.6); Monocytes Percent Auto 6.7 % (2.6-8.5); Neutrophils Absolute Auto 8.9 K/mm3 (1.3-6.7); Neutrophils Percent Auto 72.3 % (45.5-73.1); Platelet Count Result 370 k/mm3 (150-375); Red Blood Count 3.38 M/mm3 (4.2-5.4); Red Cell Distribution Width 14.4 % (11.5-14.5); White Blood Count 12.4 K/mm3 (4.5-10.0)
[2020-07-04] VITALS (104 sets, daily range): BP systolic 74–160; BP diastolic 21–118; PULSE 76–145; RESP 16–20; TEMP 36.6–37.1; O2SAT 88–100
[2020-07-04] MEDS: LACTATED RINGERS 1,000 ML 125 ML IV CONT ×2 (03:51→08:44)
[2020-07-04] MEDS: OXYTOCIN 30 UNITS/NS 500 ML 30 UNITS/500 ML BAG IV CONT (03:52)
[2020-07-04 06:33] LABS: Rapid Plasma Reagin Non-Reactive (NonReactive)
--- NOTE | 2020-07-04 07:37 | WPDOBADMIT ---
Obstetrics - Admit Note Admission Note: 25y/o @ 38w6d sent in last night for induction of labor d/t gestational hypertension. Pt feeling contractions Contractions irregular FHR category 1 Cercix 2/50/-2 AROM moderate amount of clear odorless fluid. Epidural when desired Anticipate record reviewed. No pertinent additions to the history and/or any subsequent changes in the physical findings that are not consistent with the expected course of the were found. Additions to the history and/or subsequent changes in the physical findings follow. None.
[2020-07-04] MEDS: fentaNYL CITRATE INJ (*CRX) 100 MCG/2 ML VIAL 50 MCG IV PUSH (08:45)
--- NOTE | 2020-07-04 13:59 | PM.OBPRVD ---
OB - Delivery Note Procedure Delivery date: 07/04/20 events: Induced HTN Intrapartal events: None Induction method: per pitocin protocol Delivery augmentation: rupture of membranes Delivery monitor: external FHT, external uterine and internal uterine Route of delivery: Episiotomy description: None Laceration description: None Estimated blood loss (mL): 104 Anesthesia type: Epidural Baby Date of : 07/04/20 Time of : 13:47 Weeks of gestation at delivery: 38 gender: Female Weight (pounds): 6 Weight (ounces): 8 presentation: vertex position: Left Occiput Anterior Placenta delivery description: Spontaneous
[2020-07-04] MEDS: OXYTOCIN 30 UNITS/NS 500 ML 30 UNITS/500 ML BAG 125 UNITS IV CONT (14:25)
[2020-07-04] MEDS: IBUPROFEN 600 MG TABLET PO (15:03)
[2020-07-04] MEDS: WITCH HAZEL 40 PADS 1 PAD TOPICAL (15:04)
[2020-07-04] MEDS: BENZOCAINE 20% AER SPR (*SP) 56 GM CAN 1 SPRAY TOPICAL (15:04)
--- NOTE | 2020-07-04 16:29 | OBPPTRN ---
Patient transferred to post room # 284 via wheelchair. Support person present. Oriented to unit, room, information board, rooming in, admission packet and security measures. Patient verbalizes understanding.
[2020-07-05] MEDS: IBUPROFEN 600 MG TABLET PO ×3 (00:50→16:59)
[2020-07-05 05:22] LABS: Hematocrit 25.3 % (37.0-47.0); Hemoglobin 8.4 g/dL (12.0-15.0)
--- NOTE | 2020-07-05 07:31 | PM.OBPNVD ---
OB - PN: Subj Subjective Date/time seen: 07/05/20 07:31 Patient comments: no complaints baby status: doing well OB - PN: Obj Data Labs CBC & Chem 7: 07/05/20 04:25 07/03/20 13:59 Labs: Laboratory Results - last 24 hr 07/05/20 04:25 Hgb 8.4 L Hct 25.3 L OB - PN A/P Plan day: 1 Plan: routine care Time Spent With Patient Time: Total time spent is greater than 50% in coordination of care (as documented) at patient's floor/unit and/or counseling patient: Exam Const: General: comfortable Resp: Effort & Inspection: normal respiratory effort Psych: Appearance: grossly normal Affect: normal affect Attitude: cooperative
--- NOTE | 2020-07-05 08:18 | WPDANLDPN2 ---
Anes-Prog Note L&D Date/Time: 07/05/20 08:18 Comfortable throughout: labor and delivery Neuraxial method: epidural Epidural/Spinal procedure site: clean & non-tender Neuro status: Neuro function grossly intact. Cardiovascular status: normal Respiratory status: normal Airway patency: baseline Mental status: baseline Post-Op hydration status: normal Vital Signs: Last Vital Signs Temp 37.1 C 07/04/20 19:20 Pulse 100 07/04/20 19:20 Resp 16 07/04/20 19:20 BP 128/78 07/04/20 19:20 Pulse Ox 100 07/04/20 13:41 Pain score (VAS): 0 I/O: Intake & Output 07/04/20 07/05/20 07/05/20 23:59 07:59 15:59 Output Total 118 Balance -118 Post-procedural complaints: none Patient feedback: Patient satisfied with anesthetic care.
[2020-07-05 08:25] VITALS: BP 149/89; PULSE 96; RESP 18; TEMP 37; O2SAT 99
[2020-07-05] MEDS: DOCUSATE SODIUM 100 MG CAPSULE PO ×2 (08:55→16:59)
[2020-07-05] MEDS: MULTIVIT/MIN/PREN/FOL AC/IRON TABLET 1 TAB PO (08:55)
[2020-07-05] MEDS: POLYSACCHARIDE IRON COMPLEX 150 MG CAPSULE PO ×2 (08:55→16:59)
[2020-07-05 17:37] VITALS: BP 148/95
[2020-07-05 18:45] VITALS: BP 157/88; PULSE 96; RESP 16; TEMP 36.6
[2020-07-06] MEDS: IBUPROFEN 600 MG TABLET PO (07:56)
[2020-07-06] MEDS: DOCUSATE SODIUM 100 MG CAPSULE PO (07:56)
[2020-07-06] MEDS: MULTIVIT/MIN/PREN/FOL AC/IRON TABLET 1 TAB PO (07:57)
[2020-07-06] MEDS: POLYSACCHARIDE IRON COMPLEX 150 MG CAPSULE PO (07:57)
[2020-07-06 08:00] VITALS: BP 142/84; PULSE 88; RESP 18; TEMP 36.9; O2SAT 99
--- NOTE | 2020-07-06 08:00 | PC.NURSE ---
Patient instructed to view the discharge video Mother & Baby Care, The First Two Weeks . Patient was given the opportunity and encouraged to ask questions. Patient verbalized understanding of information shared and has been given the mother/baby guide for home reference.
--- NOTE | 2020-07-06 08:17 | PM.OBPNVD ---
OB - PN: Subj Subjective Date/time seen: 07/06/20 08:17 Patient comments: no complaints baby status: doing well OB - PN: Obj Data Labs CBC & Chem 7: 07/05/20 04:25 07/03/20 13:59 OB - PN A/P Plan day: 2 Plan: discharge home Comments: f/u at [facility] as scheduled then in office at end of week for bp check Time Spent With Patient Time: Total time spent is greater than 50% in coordination of care (as documented) at patient's floor/unit and/or counseling patient: Exam Const: General: comfortable Resp: Effort & Inspection: normal respiratory effort Psych: Appearance: grossly normal Affect: normal affect Attitude: cooperative Judgement: Good judgement present (Psych)
[2020-07-08 13:18] VITALS: BP 135/76; PULSE 89; RESP 18; TEMP 37.1; O2SAT 100
--- NOTE | 2020-08-01 20:16 | PM.OBDSVD ---
DS: Admitting Diagnosis Admitting Diagnosis Admitting Diagnosis: iol OB - DS: Summary OB Procedures : None OB Procedures Intrapartum: Spontaneous Vag Delivery OB Procedures: : None Time Spent with Patient Time attestation: Total time spent providing and/or coordinating discharge services: DS: Data Data Completed and Pending Completed studies during hospitalization: Pending at discharge 07/04/20 13:54 Surgical [PTH] Routine Discharge Plan Discharge Attending physician on discharge: Zach Larose Consulting providers: Aggie Putnam ; Melina George Discharging Clinician: Melina Geroge Patient Disposition: Home, Self-Care Activity: pelvic rest Diet: regular Discharge Instructions: Education: Mom and Baby Guide and Preeclampsia Handout Given to: Mother Follow-Up: Call your delivering provider's office for an appointment to be seen in: or Wednesday for BP check Mom and baby should come to the [facility] for the follow-up appointment. Appointment Date/Time: July 08, 2020 at 12:30 pm What to expect at your follow-up visit: Blood Pressure Check Physical Assessment Call [phone] if you are unable to keep your appointment time. BREAST CARE: * Wear a snug supportive bra. * For engorgement discomfort: Breast Feeding: * Apply warm moist washcloths * Express milk as needed to relieve engorgement * Wear loose clothing * For sore nipples: * Identify correct latch-on * Apply warm moist washcloths before and after nursing * Air dry nipples after nursing * May apply Lansinoh cream to nipples EPISIOTOMY/PERINEAL CARE: * Until bleeding stops, use your ranjana bottle after urinating * Change your pad frequently throughout the day * You may take sitz baths several times a day (fill your bathtub with warm water and soak for 20 minutes.) Do NOT bathe in the water * No tub baths until seen by your physician - You may shower ACTIVITY: * Rest as much as possible. * Do not exercise or lift anything heavier than your baby (such as laundry or other children.) * Avoid stairs or driving as much as possible. * Do not put anything into the vagina. No douching, tampons, or sexual activity until seen by physician. NOTIFY PHYSICIAN IF YOU HAVE ANY QUESTIONS OR IF ANY OF THE FOLLOWING SYMPTOMS OCCUR: * If your perineum becomes red, swollen, or more painful than what you have experienced in the hospital. * If your vaginal bleeding becomes foul smelling. * If your vaginal bleeding becomes more heavy than a period or if your bleeding changes from pink to bright red. However, you may pass an occasional walnut-sized clot once or twice for the first week . * If you experience a sharp, shooting pain in you calves. * If you discover a hard, reddened area on your breast or if you experience flu-like symptoms. DIET: * Eat regular, well-balanced meals. * Drink plenty of fluids daily. If , drink to thirst. Stand Alone Forms: General Discharge Information Follow-up/Referrals: Aggie Putnam CNM [Certified Nurse Paper [employer]eter] - 4 Weeks (f/u end of week for bp check) Discharge Medications: New polysaccharide iron complex 150 mg iron Capsule 150 mg PO BIDWM Qty: 30 RF: 0 Continued PNV cmb#95-ferrous fumarate-FA [] 28 mg iron- 800 mcg Tablet 1 tablet PO DAILY RF: 0 albuterol sulfate 90 mcg/actuation aerosol powdr breath activated 2 inhalation INHALATION Q4H PRN (Reason: shortness of breath or wheezing) Qty: 1 RF: 0 Date of admission: 07/03/20 13:39 Primary Care Provider: PHYSICIAN,DINKEY OPERATOR SLATE Admitting Provider: Zach Larose Attending physician on admission: Zach Larose
== END 2020-07-06 13:34 | disposition home or self-care (01) | DRG 807 ==
LOC: ANHLDR 13:43 → ANHOB2 07-04 16:31
PROVIDERS: Advanced Practice Midwife; Admitting Provider Obstetrics & Gynecology; Visit Provider Obstetrics & Gynecology
DX: O13.4 Gestational [pregnancy-induced] hypertension without significant proteinuria, complicating childbirth (principal); Z37.0 Single live birth; O76 Abnormality in fetal heart rate and rhythm complicating labor and delivery; Z3A.38 38 weeks gestation of pregnancy; Z23 Encounter for immunization
CPT/HCPCS: 36415; 80053; 84550; 85014; 85018; 85025; 86592; 86850; 86900; 86901; 88307; A9270; J2590; J2795; J3010; J7120

== ENCOUNTER 2020-08-23 04:34 | Emergency (ER) | payer OTHER, SELFPAY ==
--- NOTE | ~2020-08-23 | XR_ITS ---
EXAMINATION: XR chest 2V DATE: 08/23/2020 05:09 INDICATION: Cough. TECHNIQUE: Frontal and lateral views of the chest were obtained. COMPARISON: None. FINDINGS: The chest demonstrates clear lungs without pneumonia, pleural effusion, or pneumothorax. Th e heart size is normal. IMPRESSION: 1. No acute cardiopulmonary disease. Reviewed, dictated and finalized at location A. CTION MACHINE OPERATOR
[2020-08-23 04:39] VITALS: TEMP 38.9
[2020-08-23 04:46] VITALS: BP 148/83; PULSE 105; RESP 16; O2SAT 99
--- NOTE | 2020-08-23 05:04 | ED.GENADULT ---
HPI - General Adult General Chief complaint: Unspecified Stated complaint: Breast pain/fever Time Seen by Provider: 08/23/20 04:53 History of Present Illness HPI narrative: Patient is a 25-year-old female who presents the emergency department with chief complaint of breast pain and fever. The patient reports that she recently gave and has been breast-feeding patient reports that she has had a fullness and discomfort in bilateral breast even though she has been both nursing and pumping the patient states that she started having fever and has pain particularly around the areolas and also in the axillary area. The patient reports she had a little bit of a dry cough as had a slight runny nose patient reports that the breast are exquisitely tender whenever she nurses or whenever she pumps. Related Data Home Medications Medication Instructions Recorded Confirmed albuterol sulfate 2 puff INHALATION PRN PRN 08/14/20 08/14/20 vit no.[id number] 1 tablet PO DAILY 08/14/20 08/14/20 [ Vitamin] Allergies Allergy/AdvReac Type Severity Reaction Status Date / Time aston Allergy Anaphylaxis Uncoded 08/23/20 04:36 Review of Systems Review of Systems: Narrative: CONSTITUTIONAL: Denies fever, chills, or sweats. EYES: Denies visual changes, redness, or discharge. ENT: Denies rhinorrhea, congestion, sore throat, or otalgia. CARDIOVASCULAR: Denies chest pain, palpitations, or edema. RESPIRATORY: Denies cough or dyspnea. GASTROINTESTINAL: Denies abdominal pain, nausea, vomiting, or diarrhea. GENITOURINARY: Denies dysuria or hematuria. SKIN: Denies rash or itching. MUSCULOSKELETAL: Denies back pain, joint pain, or myalgia. NEUROLOGIC: Denies headache, numbness, or weakness. PSYCHIATRIC: Denies anxiety or depression. All systems reviewed & are unremarkable except as noted in HPI and below [facility] Social History Social History Smoking packs per day: 1 Smoking cigarettes per day: 20.0 Years smoked: 8 Smoking pack-years: 8.00 Smoking status: Former smoker Tobacco type: cigarettes Second hand tobacco smoke exposure: Yes Smoking end date: 10/04/19 Alcohol intake: current Substance use: current Substance use type: marijuana Spiritual care concerns: No Comments No significant past medical history Exam Narrative: Exam Narrative: GENERAL: Well-appearing, well-nourished, and in no acute distress. HEAD: Normocephalic, atraumatic. EYES: PERRLA and EOMI. ENT: Nares clear, no rhinorrhea or epistaxis. Mucous membranes moist. NECK: Supple. CHEST: Clear to auscultation. No respiratory distress, there is tenderness to palpation in both breast there is erythema around the areolas there is no fluctuance HEART: Regular rate and rhythm. No murmur heard. Normal peripheral pulses. ABDOMEN: Soft, nontender, nondistended, normal active bowel sounds. EXTREMITIES: Normal range of motion. No edema. SKIN: Warm, dry, no rash. NEURO: No focal deficits. Alert and oriented x3. PSYCH: Normal mood and affect. Course Vital Signs Vital signs: Vital Signs Temperature 38.9 C H 08/23/20 04:39 Temperature 37.7 C H 08/23/20 06:07 Pulse Rate 105 H 08/23/20 04:46 Respiratory Rate 16 08/23/20 04:46 Blood Pressure 148/83 H 08/23/20 04:46 Pulse Oximetry 99 08/23/20 04:46 Medical Decision Making Vital Signs Vital Signs: Vital Signs Temperature 38.9 C H 08/23/20 04:39 Temperature 37.7 C H 08/23/20 06:07 Pulse Rate 105 H 08/23/20 04:46 Respiratory Rate 16 08/23/20 04:46 Blood Pressure 148/83 H 08/23/20 04:46 Pulse Oximetry 99 08/23/20 04:46 Lab Data Result diagrams: 08/23/20 04:56 08/23/20 04:56 Labs: Lab Results 08/23/20 08/23/20 08/23/20 Range/Units 04:56 04:56 05:42 WBC 3.6 L (4.5-10.0) K/mm3 RBC 4.19 L (4.2-5.4) M/mm3 Hgb 11.7 L (12.0-15.0) g/dL Hct
[2020-08-23 05:12] LABS: Basophils Percent Auto 0.3 % (0.2-1.2); Eosinophils Absolute Auto 0.1 K/mm3 (0-0.3); Eosinophils Percent Auto 1.7 % (0-4.4); Hematocrit 35.8 % (37.0-47.0); Hemoglobin 11.7 g/dL (12.0-15.0); Immature Granulocyte Absolute 0.01 K/mm3 (0.00-0.031); Immature Granulocyte Percent A 0.3 % (0-0.5); Lymphocytes Absolute Auto 1.37 K/mm3 (0.9-3.2); Lymphocytes Percent Auto 38.6 % (18.3-44.2); Mean Corpuscular HGB Conc 32.7 g/dl (32-36); Mean Corpuscular Hemoglobin 27.9 pg (26-34); Mean Corpuscular Volume 85.4 fl (80-100); Monocytes Absolute Auto 0.2 K/mm3 (0.1-0.6); Monocytes Percent Auto 6.5 % (2.6-8.5); Neutrophils Absolute Auto 1.9 K/mm3 (1.3-6.7); Neutrophils Percent Auto 52.6 % (45.5-73.1); Platelet Count Result 226 k/mm3 (150-375); Red Blood Count 4.19 M/mm3 (4.2-5.4); Red Cell Distribution Width 15.1 % (11.5-14.5); White Blood Count 3.6 K/mm3 (4.5-10.0)
[2020-08-23 05:27] LABS: Alanine Aminotransferase 28 U/L (4-35); Albumin Level 4.2 g/dL (3.5-5.1); Alkaline Phosphatase 68 U/L (38-126); Anion Gap 7 mmol/L (8-16); Aspartate Amino Transferase 42 U/L (14-36); Bilirubin,Total 0.6 mg/dL (0.2-1.3); Blood Urea Nitrogen 12 mg/dL (7-17); CRP 3.6 mg/dL (<1.0); Calcium 8.9 mg/dL (8.4-10.2); Carbon Dioxide 27 mmol/L (22-30); Chloride 104 mmol/L (98-107); Estimated CRCL calculation 98 ml/min; Estimated Glomerular Filt Rate > 60; Glucose 116 mg/dL (65-105); Potassium 4.2 mmol/L (3.4-5.0); Sodium 138 mmol/L (137-145)
[2020-08-23] MEDS: SODIUM CHLORIDE 0.9% IV 3,100 ML/1,000 ML BAG 999 ML IV CONT ×2 (05:54→07:38)
[2020-08-23 06:01] LABS: Lactic Acid Reflex 0.9 mmol/L (0.7-2.1)
[2020-08-23 06:07] VITALS: TEMP 37.7
[2020-08-23 06:13] LABS: INR 1.1; Prothrombin Time 14.3 Seconds (11.1-14.7)
[2020-08-23 06:14] LABS: Partial Thromboplastin Time 28.2 SECONDS (22.3-36.8)
[2020-08-23 08:20] VITALS: BP 136/78; PULSE 92; RESP 18; O2SAT 98
== END 2020-08-23 08:21 | disposition home or self-care (01) ==
PROVIDERS: Emergency Provider Emergency Medicine
DX: O91.22 Nonpurulent mastitis associated with the puerperium (principal); Z87.891 Personal history of nicotine dependence
CPT/HCPCS: 36415; 71046; 80053; 83605; 85025; 85610; 85730; 86140; 87040; 96361; 96374; 99284; J0131; J7030

== ENCOUNTER 2020-08-24 01:33 | Outpatient (CLI) | payer OTHER, SELFPAY ==
[2020-08-24 19:09] LABS: SARS-CoV-2 RNA PCR Negative
== END 2020-08-24 01:34 | disposition home or self-care (01) ==
LOC: ANHCOVIDDT 01:33
PROVIDERS: Visit Provider Obstetrics & Gynecology
DX: Z01.818 Encounter for other preprocedural examination (principal); Z20.828 Contact with and (suspected) exposure to other viral communicable diseases
CPT/HCPCS: 87635; C9803; U0003

== ENCOUNTER 2020-08-28 00:46 | Day surgery (SDC) | payer OTHER, SELFPAY ==
[2020-08-14 15:30] VITALS: BMI 32.5
--- NOTE | 2020-08-27 09:20 | WPDANESEPPF ---
Anes - Initial Pre Proc Eval Procedure: Operation Date: 08/28/20 08:30 Proposed Procedures p Laparoscopic Bilateral Tubal Sterilization With Cautery - Zach Larose MD Date/Time: 08/27/20 09:20 Surgeon: Zach Larose MD Pre Op Diagnosis: Desires Sterilization Patient Data Age: 25 Gender: F Height: 1.75 m Weight: 99.79 kg Allergies Allergy/AdvReac Type Severity Reaction Status Date / Time aston Allergy Severe Anaphylaxis Uncoded 08/28/20 07:02 Home Medications Medication Instructions Recorded Confirmed Type albuterol sulfate 2 puff INHALATION PRN PRN 08/14/20 08/28/20 History vit no.[id number] 1 tablet PO DAILY 08/14/20 08/28/20 History [ Vitamin] dicloxacillin 500 mg PO Q6H 7 Days #28 cap 08/23/20 08/28/20 Rx Patient hx anesthesia problems: none Family hx anesthesia problems: none PMFSH Past Medical History Medical History (Updated 08/27/20 @ 09:20 by Norbert Viera DO) Anxiety Asthma Depression Social History Social History Smoking packs per day: 1 Smoking cigarettes per day: 20.0 Years smoked: 8 Smoking pack-years: 8.00 Smoking status: Former smoker Tobacco type: cigarettes Second hand tobacco smoke exposure: Yes Smoking end date: 10/04/19 Alcohol intake: current Alcohol use details: socially/occassionally Substance use: current Substance use type: marijuana Living arrangements: with family Spiritual care concerns: No Anes - Eval Final PreProcedure Day of Procedure 08/27/20 09:20 Patient weight: obese Heart: regular rate and rhythm Lungs: clear to auscultation and normal air movement Airway: Mallampati scale class II Neurological: alert and oriented Last oral intake: >/= 8 hours ASA classification: III Emergent: no Anesthetic plan: proceed Anesthesia type and monitoring: general ETT and standard monitoring Informed Consent: The patient's anesthetic plan and its attendant risks and benefits were discussed with the patient/family/POA. Questions were solicited and answers provided to the satisfaction of the patient/family/POA.
[2020-08-28] VITALS (8 sets, daily range): BP systolic 109–127; BP diastolic 55–80; PULSE 67–99; RESP 14–19; TEMP 36.1–36.3; O2SAT 95–100
[2020-08-28] MEDS: ACETAMINOPHEN 500 MG TABLET 1000 MG PO (07:06)
[2020-08-28] MEDS: KETOROLAC 15 MG/ML VIAL (*BKC) IV PUSH (07:17)
[2020-08-28] MEDS: LACTATED RINGERS 1,000 ML 30 ML IV CONT (07:17)
--- NOTE | 2020-08-28 08:32 | WPDHPUPDATE1 ---
History and Physical Update Update Date/Time: 08/28/20 08:32 History and Physical has been reviewed, including an updated exam of the patient. There are NO changes in the patient's condition. Risks, benefits, and alternatives have been discussed and questions answered. Patient agrees to proceed with procedure.
--- NOTE | 2020-08-28 09:23 | PM.PROC ---
Procedure Note - Detailed Date of procedure: 08/28/20 Pre-op diagnosis: Desires Sterilization Post-op diagnosis: same Procedure performed: Laparoscopic bilateral tubal ligation Description of procedure: Patient was taken the operating room. She has prepped draped in the dorsal lithotomy position after induction of general anesthesia. A 5 mm abdominal incision was made in left upper quadrant of the abdomen with scalpel. A 5 mm trocars inserted the intra-abdominal cavity under direct visualization of the scope. Pneumoperitoneum was achieved. A 5 mm periumbilical incision was made using a scalpel on the abdominal scan. A 5 mm trocar was inserted the intra-abdominal cavity under visualization of the scope. The fallopian tube was grasped with the bipolar cautery in the ampullary region. It was completely desiccated in a 1.5 cm area of the fallopian tube. This was performed in identical fashion on the contralateral side. The instruments were withdrawn. The pneumoperitoneum was reduced. The trocars were removed. The skin was closed with subcuticular 4 Monocryl. This incisions were covered with Dermabond. The patient tolerated the procedure well. She was taken to recover room in stable condition. Anesthesia: GETA Surgeon: Zach Larose MD Estimated blood loss (mL): 10 Drains: No Packing: No Pathology: none sent Complications: No immediate complications Condition: stable Disposition: PACU Findings: Normal female pelvic anatomy.
== END 2020-08-28 11:03 | disposition home or self-care (01) ==
PROVIDERS: Visit Provider Obstetrics & Gynecology
PROC: (CPT 58671; principal; 2020-08-28 08:30)
DX: Z30.2 Encounter for sterilization (principal); F41.8 Other specified anxiety disorders; J45.909 Unspecified asthma, uncomplicated; Z87.891 Personal history of nicotine dependence; F12.90 Cannabis use, unspecified, uncomplicated; E66.9 Obesity, unspecified; Z68.31 Body mass index [BMI] 31.0-31.9, adult
CPT/HCPCS: 58670; A9270; J1100; J1885; J2250; J2405; J2704; J3010; J7120

== ENCOUNTER 2021-06-19 14:23 | Emergency (ER) | payer OTHER, SELFPAY ==
[2021-06-19 14:34] VITALS: BP 133/66; PULSE 75; RESP 18; TEMP 36.8; O2SAT 99
[2021-06-19 15:01] LABS: Basophils Absolute Auto 0.1 K/mm3 (0.0-0.1); Basophils Percent Auto 0.9 % (0.2-1.2); Eosinophils Absolute Auto 0.5 K/mm3 (0-0.3); Hematocrit 35.6 % (37.0-47.0); Hemoglobin 11.6 g/dL (12.0-15.0); Immature Granulocyte Absolute 0.02 K/mm3 (0.00-0.031); Immature Granulocyte Percent A 0.3 % (0-0.5); Lymphocytes Absolute Auto 2.54 K/mm3 (0.9-3.2); Mean Corpuscular HGB Conc 32.6 g/dl (32-36); Mean Corpuscular Hemoglobin 29.5 pg (26-34); Mean Corpuscular Volume 90.6 fl (80-100); Monocytes Absolute Auto 0.6 K/mm3 (0.1-0.6); Monocytes Percent Auto 8.6 % (2.6-8.5); Neutrophils Absolute Auto 3.2 K/mm3 (1.3-6.7); Neutrophils Percent Auto 46.2 % (45.5-73.1); Platelet Count Result 370 k/mm3 (150-375); Red Blood Count 3.93 M/mm3 (4.2-5.4); Red Cell Distribution Width 13.2 % (11.5-14.5); White Blood Count 6.9 K/mm3 (4.5-10.0)
[2021-06-19 15:10] LABS: Anion Gap 6 mmol/L (8-16); Blood Urea Nitrogen 12 mg/dL (7-17); Calcium 9.6 mg/dL (8.4-10.2); Carbon Dioxide 25 mmol/L (22-30); Chloride 110 mmol/L (98-107); Estimated CRCL calculation 112 ml/min; Estimated Glomerular Filt Rate > 60; Glucose 98 mg/dL (65-110); Potassium 3.9 mmol/L (3.4-5.0); Sodium 141 mmol/L (137-145)
== END 2021-06-20 02:46 | disposition left against medical advice (07) ==
LOC: ANHED 18:24
PROVIDERS: Emergency Provider Emergency Medicine
DX: R55 Syncope and collapse (principal)
CPT/HCPCS: 36415; 80048; 85025; 99199

== ENCOUNTER 2023-02-25 09:33 | Emergency (ER) | payer OTHER, SELFPAY ==
[2023-02-25] VITALS (13 sets, daily range): BP systolic 111–123; BP diastolic 78–87; PULSE 45–78; RESP 14–18; TEMP 36.7; O2SAT 95–100
--- NOTE | ~2023-02-25 | US_ITS ---
Limited Abdominal Sonogram: Real-time sonographic imaging of the right upper quadrant was performed. Clinical History: Biliary colic Findings: The liver appears normal with no evidence of mass lesion or bile duct dilatation. Main por mary vein demonstrates normal direction of flow. The gallbladder is well distended, and and contains n umerous echogenic gallstones. No gallbladder wall thickening. The common bile duct measures 5 mm. Th e visualized pancreas, aorta, and IVC are unremarkable. Impression: Cholelithiasis. Reviewed, dictated and finalized at location M. Impression: Cholelithiasis.
--- NOTE | ~2023-02-25 | CT_ITS ---
EXAMINATION: CT abd pelvis lumbar w con DATE: 02/25/2023 10:59 INDICATION: Left upper quadrant and epigastric pain. TECHNIQUE: Computed tomography (CT) of the abdomen, pelvis and lumbar spine was performed with 100 cc Omnipaque 350 intravenous contrast. The dose-length product was 444.34 mGy-cm. Automated exposure co ntrol and iterative reconstruction technique were employed. COMPARISON: None FINDINGS: Abdomen/pelvis: Lung bases are unremarkable. Heart size normal. No significant pleural or pericardial effusion. Small hiatal hernia. Possible gallstones. The liver, spleen, pancreas, adrenal glands and kidneys are unremarkable. No significant vascular abnormality. No lymphadenopathy. Nonobstructive bowel pattern. No abnormal pelvic masses or fluid collections. Mildly prominent bilateral inguinal lymph nodes, lik robert reactive. Lumbar spine: Normal lumbar lordosis. No fracture, subluxation or dislocation. Mild levocurvature of the lumbar spine. No paraspinal soft tissue abnormality. No significant spinal stenosis. IMPRESSION: 1. Possible cholelithiasis. Consider correlation with ultrasound. 2: Small hiatal hernia. 3: No acute abnormality of the lumbar spine. Reviewed, dictated and finalized at location L.
[2023-02-25 09:55] LABS: Basophils Absolute Auto 0.1 K/mm3 (0.0-0.1); Basophils Percent Auto 1.2 % (0.2-1.2); Eosinophils Absolute Auto 0.6 K/mm3 (0-0.3); Eosinophils Percent Auto 9.3 % (0-4.4); Hematocrit 36.4 % (37.0-47.0); Hemoglobin 11.8 g/dL (12.0-15.0); Immature Granulocyte Absolute 0.01 K/mm3 (0.00-0.031); Immature Granulocyte Percent A 0.1 % (0-0.5); Lymphocytes Absolute Auto 1.95 K/mm3 (0.9-3.2); Lymphocytes Percent Auto 29.2 % (18.3-44.2); Mean Corpuscular HGB Conc 32.4 g/dl (32-36); Mean Corpuscular Hemoglobin 29.1 pg (26-34); Mean Corpuscular Volume 89.9 fl (80-100); Mean Platelet Volume 9.8 fl (7.4-10.4); Monocytes Absolute Auto 0.4 K/mm3 (0.1-0.6); Monocytes Percent Auto 6.1 % (2.6-8.5); Neutrophils Absolute Auto 3.6 K/mm3 (1.3-6.7); Neutrophils Percent Auto 54.1 % (45.5-73.1); Platelet Count Result 418 k/mm3 (150-375); Red Blood Count 4.05 M/mm3 (4.2-5.4); Red Cell Distribution Width 13.4 % (11.5-14.5); White Blood Count 6.7 K/mm3 (4.5-10.0)
--- NOTE | 2023-02-25 10:00 | ED.NAVMDI ---
HPI - Nausea/Vomiting/Diarrhea General Chief complaint: Nausea/Vomiting/Diarrhea Stated complaint: vomiting since Wednesday Time Seen by Provider: 02/25/23 09:40 History of Present Illness HPI Narrative: 28-year-old female reports for evaluation of nausea, vomiting, left upper quadrant pain and back pain x3 days. Patient reports vomiting after every time she tries to eat and when she experiences her back pain. Pt reports the back pain is lower midline and to the L flank. Reports back pain improves with flexion. She has taken Aleve without relief. She denies fever, urinary complaints, neck pain, CP, SOB, extremity weakness, loss of bowel or bladder control or retention, melena, hematochezia, hematemesis or coffee-ground emesis. No recent surgey or procedures to back. Last BM was this morning and normal. Related Data Allergies Allergy/AdvReac Type Severity Reaction Status Date / Time aston Allergy Severe Anaphylaxis Uncoded 02/25/23 09:41 Review of Systems Review of Systems: CONSTITUTIONAL: Denies fever, chills EYES: Denies visual changes, redness, or discharge. ENT: Denies rhinorrhea, congestion, sore throat, or otalgia. CARDIOVASCULAR: Denies chest pain, palpitations, or edema. RESPIRATORY: Denies cough or dyspnea. GASTROINTESTINAL: See HPI GENITOURINARY: Denies dysuria or hematuria. SKIN: Denies rash or itching. MUSCULOSKELETAL: See HPI NEUROLOGIC: Denies headache, numbness, dizziness, or weakness. PSYCHIATRIC: Denies anxiety or depression. [facility] Past Medical History Medical History Anxiety Asthma Depression Social History Social History Smoking packs per day: 1 Smoking cigarettes per day: 20.0 Years smoked: 8 Smoking pack-years: 8.00 Smoking status: Former smoker Tobacco type: cigarettes Second hand tobacco smoke exposure: Yes Smoking end date: 10/04/19 Alcohol intake: current Alcohol use details: socially/occassionally Substance use: current Substance use type: marijuana Living arrangements: with family Spiritual care concerns: No Exam Narrative: GENERAL: Well-appearing, in no acute distress. Patient resting comfortably in exam bed. She is pleasant and conversational. HEAD: Normocephalic EYES: PERRLA, EOMI ENT: Nares clear. Mucous membranes moist. Oropharynx without tonsillar hypertrophy exudate or other lesions. NECK: Supple. No cervical midline tenderness, step-offs or deformities. Negative Brudzinski's and Kernig's. No nuchal rigidity CHEST: No respiratory distress. Clear to auscultation, no adventitious breath sounds. HEART: Regular rate and rhythm. No murmur heard. Normal peripheral pulses. ABDOMEN: Soft, normal active bowel sounds. Tenderness to the epigastrium and left upper quadrant. No rebound, guarding or rigidity. No overlying skin changes. No CVA tenderness. BACK: Tenderness to palpation of the lumbar spine and paraspinous muscles, L>R. No overlying skin changes. EXTREMITIES: Normal range of motion. No edema. SKIN: Warm, dry, no rash. NEURO: No focal deficits. Alert and oriented x3. Cranial nerves II through XII intact. Strength 5/5 in BUE and BLE. Sensation intact throughout. No saddle anesthesia. DP and radial pulses 2+. PSYCH: Normal mood and affect. Course Vital Signs Vital signs: Vital Signs Temperature 98.1 F 02/25/23 09:39 Pulse Rate 78 02/25/23 09:39 Respiratory Rate 18 02/25/23 09:39 Blood Pressure 123/79 02/25/23 09:39 Pulse Oximetry 100 02/25/23 09:39 Temperature 98.1 F 02/25/23 09:39 Pulse Rate 78 02/25/23 09:39 Respiratory Rate 18 02/25/23 09:39 Blood Pressure 111/87 02/25/23 10:45 Pulse Oximetry 96 02/25/23 10:46 MDM - Nausea/Vomiting/Diarrhea MDM Narrative Medical decision making narrative: 28-year-old female reports for evaluation of nausea, vomiting, epigastric and left
[2023-02-25 10:09] LABS: Alanine Aminotransferase 57 U/L (6-35); Albumin Level 4.8 g/dL (3.5-5.1); Alkaline Phosphatase 74 U/L (38-126); Anion Gap 8 mmol/L (8-16); Aspartate Amino Transferase 53 U/L (14-36); Bilirubin,Total 1.6 mg/dL (0.2-1.3); Blood Urea Nitrogen 14 mg/dL (7-17); Calcium 9.3 mg/dL (8.4-10.2); Carbon Dioxide 28 mmol/L (22-30); Chloride 104 mmol/L (98-107); Estimated CRCL calculation 97 ml/min; Estimated Glomerular Filt Rate > 60; Glucose 88 mg/dL (65-110); Lipase 26 U/L (23-300); Potassium 4.4 mmol/L (3.4-5.0); Sodium 140 mmol/L (137-145)
[2023-02-25] MEDS: BELLADONNA ALK/PHENOB ELIX 10 ML, MAG HYDROX/ALUMINUM HYD/SIMETH 30 ML, LIDOCAINE HCL 2... PO (10:29)
[2023-02-25] MEDS: SODIUM CHLORIDE 0.9% IV 1,000 ML 999 ML IV CONT (10:34)
[2023-02-25] MEDS: ONDANSETRON INJ 4 MG/2 ML VIAL IV PUSH (10:34)
[2023-02-25] MEDS: FAMOTIDINE 20 MG/2 ML VIAL IV PUSH (10:34)
[2023-02-25 10:38] LABS: Appearance Urine Cloudy (Clear); Bacteria Urine None Seen /hpf; Bilirubin Urine Negative (Negative); Blood Urine Negative (Negative); Color Urine Yellow (Yellow); Glucose Urine UA Negative (Negative); Ketones Urine Trace mg/dL (Negative); Leukocyte Esterase Ur Negative LEU/UL (Negative); Nitrate Urine Negative (Negative); Non Pathogenic Casts 0-2; Protein Urine Trace mg/dL (Negative); Specific Grav Ur 1.027 (1.001-1.035); Squamous Epithelial Cell Urine Occasional /hpf (Few); WBC Urine 0-5 /hpf; pH Urine 8.5 (5.0-9.0)
[2023-02-25] MEDS: CYCLOBENZAPRINE HCL 10 MG TABLET PO (10:40)
[2023-02-25 10:45] LABS: Add Urine Microscopic? YES
== END 2023-02-25 12:52 | disposition home or self-care (01) ==
PROVIDERS: Emergency Provider Physician Assistant; PCP Emergency Medicine
DX: K80.70 Calculus of gallbladder and bile duct without cholecystitis without obstruction (principal); S39.012A Strain of muscle, fascia and tendon of lower back, initial encounter; J45.909 Unspecified asthma, uncomplicated; Z87.891 Personal history of nicotine dependence; K44.9 Diaphragmatic hernia without obstruction or gangrene; X50.9XXA Other and unspecified overexertion or strenuous movements or postures, initial encounter
CPT/HCPCS: 36415; 72132; 74177; 76705; 80053; 81001; 81025; 83690; 85025; 96361; 96374; 96375; 99284; A9270; J2405; J7030; Q9967

== ENCOUNTER 2023-03-10 15:16 | Outpatient (CLI) | payer OTHER, SELFPAY ==
[2023-03-10 16:00] LABS: Alanine Aminotransferase 24 U/L (6-35); Albumin Level 4.6 g/dL (3.5-5.1); Alkaline Phosphatase 62 U/L (38-126); Amylase 205 U/L (30-110); Aspartate Amino Transferase 31 U/L (14-36); Bilirubin,Total 1.3 mg/dL (0.2-1.3)
== END 2023-03-10 15:17 | disposition home or self-care (01) ==
LOC: ANHSURGERY 15:20
PROVIDERS: Visit Provider Surgery
DX: K80.20 Calculus of gallbladder without cholecystitis without obstruction (principal); Z01.818 Encounter for other preprocedural examination
CPT/HCPCS: 36415; 80076; 82150; 86850; 86900; 86901

== ENCOUNTER 2023-03-12 04:22 | Day surgery (SDC) | payer OTHER, SELFPAY ==
[2023-03-05 15:22] VITALS: BMI 26.2
--- NOTE | 2023-03-05 15:25 | PC.NURSE ---
Report to the Outpatient Waiting Room, entrance under the green pavilion located off [facility], at time 6:00 on date 03/12/23. Planned Procedure Time: 7:30. Time changes happen often and if your time is changed the preop area will call you the afternoon before. - You and your visitor will be asked to self-screen and do not enter if you have any COVID symptoms. - A mask is optional within the hospital at this time. Patients may have clear liquids (water, carbonated beverages, clear teas, apple juice) until 3 hours prior to surgery with a maximum of 20 ounces. - No food from midnight until time of surgery Take the following medications with a SIP of water the morning of surgery: INHALER, CYCLOBENZAPRINE IF NEEDED DO NOT STOP ANY OF YOUR OTHER PRESCRIPTION MEDICATIONS PRIOR TO SURGERY ?EXCEPT THE FOLLOWING Medications to discontinue per physician: N/A Date to take last dose: N/A Please no make-up, nail cambodian, hairspray, perfume, deodorant, or body powder the day of surgery. No jewelry (including any body piercings) or valuables the day of surgery, leave them at home. Please take a shower or bath the night before, or the morning of, surgery with an antibacterial soap (HIBICLENS). Wear comfortable, loose fitting clothing. - Jewelry must be removed prior to entering the operating room. Rings and piercings that are not removed may be cut off. - The hospital will not accept responsibility for valuables. - Please leave all valuables, including medications, at home the day of surgery. If you are going home after surgery, a licensed shuttle bus driver must drive you home. - NO public transportation without another adult if you receive anesthesia. - We recommend that an adult stay with you for 24 hours following discharge. - We also recommend that you do not drive, make important decision, drink alcoholic beverages, or take any drugs that were not prescribed by your health care provider for at least 24 hours after your discharge time. Follow any additional instructions given to you from your surgeon. If you or anyone in your household have experienced Covid symptoms in the past week, please notify your surgeon or the nurse liaison at the phone number below for possible testing. Telephone instructions given to PT - CHARY GALLEGOS and asked if any additional questions and then verbalized understanding. Patient advised to call surgeon office or pre surgery nurse liaison [phone] if any additional questions.
[2023-03-12] VITALS (9 sets, daily range): BP systolic 115–143; BP diastolic 65–95; PULSE 52–91; RESP 12–18; TEMP 36.2–36.7; O2SAT 98–100
[2023-03-12] MEDS: ACETAMINOPHEN 500 MG TABLET 1000 MG PO (09:00)
[2023-03-12] MEDS: KETOROLAC 15 MG/ML VIAL (*BKC) IV PUSH (09:00)
[2023-03-12] MEDS: LACTATED RINGERS 1,000 ML 30 ML IV CONT ×3 (09:00→13:31)
[2023-03-12] MEDS: SCOPOLAMINE 1.5 MG PATCH TRANSDERM (10:00)
--- NOTE | 2023-03-12 10:01 | WPDANESEPPF ---
Anes - Initial Pre Proc Eval Procedure: Operation Date: 03/12/23 10:00 Proposed Procedures p Laparoscopic Cholecystectomy, Possible Open - Troy Geiger MD Date/Time: 03/12/23 10:01 Surgeon: Troy Geiger MD Pre Op Diagnosis: symptomatic cholelithiasis Patient Data Age: 28 Gender: F Height: 1.75 m Weight: 80.75 kg Allergies Allergy/AdvReac Type Severity Reaction Status Date / Time aston Allergy Severe Anaphylaxis Uncoded 03/05/23 14:59 Home Medications Medication Instructions Recorded Confirmed Type cyclobenzaprine 5 mg tablet 10 mg PO TID PRN muscle spasm #30 02/25/23 03/05/23 Rx tabs ondansetron 4 mg disintegrating 4 mg PO Q8H #20 tabs 02/25/23 03/05/23 Rx tablet gizytjupmwsz-Jb-ipsh-minerals 18 1 tablet PO DAILY 02/26/23 03/05/23 History mg-0.4 mg tablet albuterol sulfate 90 mcg/actuation 1 puff inhalation QID PRN 03/05/23 03/05/23 History aerosol inhaler Bronchospasm Patient hx anesthesia problems: none Family hx anesthesia problems: none Results Review: All pre-operative results and documents have been reviewed as part of the pre-operative evaluation. REPLACED BY [facility] Past Medical History Medical History Anxiety Asthma Depression Surgical History Surgical History Hx of tubal ligation 2019 Family History Family History Other Cerebrovascular accident Heart disease Social History Social History Smoking packs per day: 1 Smoking cigarettes per day: 20.0 Years smoked: 8 Smoking pack-years: 8.00 Smoking status: Current every day smoker Tobacco type: cigarettes and e-cigarettes/vaping Second hand tobacco smoke exposure: Yes Smoking end date: 10/04/19 Additional smoking assessment comments: QUIT CIGARETTES 2019, NOW VAPING Alcohol intake: never Alcohol use details: socially/occassionally Substance use: current Substance use type: marijuana Living arrangements: with family Spiritual care concerns: No Anes - Eval Final PreProcedure Day of Procedure 03/12/23 10:01 Patient weight: overweight Heart: regular rate and rhythm Lungs: clear to auscultation Airway: Mallampati scale class II Neurological: alert and oriented Last oral intake: >/= 8 hours ASA classification: III Emergent: no Anesthetic plan: proceed Anesthesia type and monitoring: general ETT and standard monitoring Results Review: All pre-operative results and documents have been reviewed as part of the pre-operative evaluation. Informed Consent: The patient's anesthetic plan and its attendant risks and benefits were discussed with the patient/family/POA. Questions were solicited and answers provided to the satisfaction of the patient/family/POA.
--- NOTE | 2023-03-12 10:10 | WPDHPUPDATE1 ---
History and Physical Update Update Date/Time: 03/12/23 10:10 History and Physical has been reviewed, including an updated exam of the patient. There are NO changes in the patient's condition. Risks, benefits, and alternatives have been discussed and questions answered. Patient agrees to proceed with procedure.
[2023-03-12] MEDS: ceFAZolin 2 GM/D5W 50 ML 2 GM/50 ML BAG IVPB (10:37)
[2023-03-12] MEDS: LIDO 2%/EPINEPHRINE 1:100,000 20 ML VIAL INFILTRATE (11:24)
--- NOTE | 2023-03-12 11:53 | W.PM.PROC2 ---
Procedure Note - Detailed Date of Procedure 03/12/23 Pre-op Diagnosis Symptomatic cholelithiasis Post-op Diagnosis Other (Chronic cholecystitis secondary to cholelithiasis) Procedure Performed Laparoscopic cholecystectomy. Surgeon Troy Geiger MD Anesthesia General Indications Patient is a 28-year-old female who presented with complaints of intermittent right upper quadrant epigastric abdominal pain associated with nausea with eating. Imaging studies showed gallstones. His thought she was having biliary colic from gallstones she presents now for elective laparoscopic cholecystectomy. Findings Mild gallbladder wall thickening with some chronic adhesions of the omentum to the gallbladder wall. All suggestive of gwyc-gs-[id number] chronic cholecystitis secondary to gallstones. Description of Procedure After informed consent was obtained patient brought to the operating room she was placed supine position and general endotracheal anesthesia was administered. The abdomen was then prepped and draped in usual sterile fashion. A time-out was then performed correctly identifying the patient as well as procedure to be performed. Was given perioperative IV antibiotics. I then the abdomen left upper quadrant utilizing a 5mm Optiview port. Once inside the abdomen I insufflated at to an adequate pneumoperitoneum of 15mmHg of CO2. I then placed additional trocar ports to include a 5mm periumbilical trocar port, a 10mm epigastric trocar port, and 2 right lateral subcostal 5mm trocar ports all under direct visualization. The gallbladder was visualized it was mildly distended and mildly thickened. There were some chronic adhesions of the omentum to the gallbladder wall. I was able to hold the gallbladder at the dome and elevate the gallbladder over the right half the way toward the right shoulder. I did strip down the omental adhesions off the gallbladder wall easily with blunt dissection. A 2nd laparoscopic grasper was then used to hold the infundibular gallbladder and continue stripping down the visceroperitoneum of the infundibular gallbladder to identified the cystic duct. The cystic duct was dissected out circumferentially. The cystic artery was identified dissected out circumferentially as well. Posterior wall the gallbladder at the infundibulum dissected free of the liver to the critical view was obtained. At this point and placed 2 clips proximal cystic duct and 2 clips distally on the infundibular gallbladder. Cystic duct was divided Endo Basilia. Cystic artery was and clipped and divided in the similar fashion. Gallbladder was then resected off liver electrocautery. No bile or gallstones were spilled. Once the gallbladder was freed from liver is placed into an Endo-Catch bag and brought out the epigastric port site. The gallbladder and contents were sent to pathology for examination. I then irrigated out the right upper quadrant the abdomen gallbladder fossa copious sterile saline solution and hemostasis was good. No evidence of bile leak was noted. I then aspirated the fluid from the right upper on the abdomen from the pelvis. Moved all this trocar ports under visualization all port sites appeared hemostatic. I then allowed the abdomen decompressed. I then closed the epigastric 10mm trocar port fascial defect utilizing 0 Vicryl suture placed in a figure-eight fashion. Skin edges on the port sites were then approximated utilizing a running subcuticular 4 Monocryl suture. The incisions were then cleaned the skin glue was applied. The patient tolerated the procedure well no complications. All sponges, needles, and instrument counts were correct at the end procedure. EBL was _ 10 __cc. The patient was awakened and taken to recovery in stable and satisfactory condition. Implants None. Estimated Blood Loss 10 Drains No Packing No Pathology Yes (Gallbladder and gallstones to pathology) Complications No immediate complications Condition Stable Dis
--- NOTE | 2023-03-12 12:32 | SUR.PHASEI ---
1232: Simple mask removed.
[2023-03-12] MEDS: fentaNYL CITRATE INJ (*CRX) 100 MCG/2 ML VIAL 25 MCG IV PUSH ×2 (12:36→12:39)
[2023-03-12] MEDS: ONDANSETRON INJ 4 MG/2 ML VIAL IV PUSH (12:42)
[2023-03-12] MEDS: diphenhydrAMINE HCl INJ 50 MG/ML VIAL 25 MG IV PUSH (13:30)
[2023-03-12] MEDS: oxyCODONE HCL (*CRX) 5 MG TAB IR PO (13:52)
== END 2023-03-12 14:28 | disposition home or self-care (01) ==
PROVIDERS: Visit Provider Surgery
PROC: 0FT44ZZ Resection of Gallbladder, Percutaneous Endoscopic Approach (ICD-10-PCS; CPT 47562; principal; 2023-03-12 10:00)
DX: K80.10 Calculus of gallbladder with chronic cholecystitis without obstruction (principal); J45.909 Unspecified asthma, uncomplicated; F41.9 Anxiety disorder, unspecified; F32.A Depression, unspecified; Z79.51 Long term (current) use of inhaled steroids; F17.290 Nicotine dependence, other tobacco product, uncomplicated; F12.90 Cannabis use, unspecified, uncomplicated
CPT/HCPCS: 47562; 88304; A9270; C1713; J0690; J1100; J1170; J1200; J1885; J2250; J2270; J2405; J2704; J3010; J7030; J7120

== ENCOUNTER 2024-07-06 16:50 | Emergency (ER) | payer OTHER, SELFPAY ==
[2024-07-06 16:55] VITALS: BP 121/67; PULSE 85; RESP 16; TEMP 36.8; O2SAT 100
--- NOTE | 2024-07-06 18:27 | ED.FEMALEGU ---
HPI - Female Genitourinary General Chief complaint: Urogenital-Female Stated complaint: Vaginal issues Time Seen by Provider: 07/06/24 18:00 Source: patient, RN notes reviewed and old records reviewed Mode of arrival: ambulatory Limitations: no limitations History of Present Illness HPI Narrative: 29 year old female who presents to [facility] care with complaints of vaginal irritation, pain and swelling with a little white discharge after using new lubricant with intercourse 2 days ago. Patient reports has pain and swelling with irritation to vagina.Patient has not used any OTC medications for her discomfort. Patient denies any vaginal bleeding. MD elicited complaint: other (vaginal irritation) Onset (ago): day(s) (2) Location of symptoms: vaginal Severity scale (1-10): 6 Quality of pain: burning and aching Vaginal discharge: white Vaginal bleeding: none Treatment prior to arrival: none Related Data Home Medications Medication Instructions Recorded Confirmed zxofigiavsbb-Ps-nohz-minerals 18 1 tablet PO DAILY 02/26/23 07/06/24 mg-0.4 mg tablet albuterol sulfate 90 mcg/actuation 1 puff inhalation QID PRN 03/05/23 07/06/24 aerosol inhaler Bronchospasm Allergies Allergy/AdvReac Type Severity Reaction Status Date / Time No Known Drug Allergies Allergy Unknown Unknown Verified 07/06/24 17:17 aston Allergy Severe Anaphylaxis Uncoded 07/06/24 17:17 Review of Systems Review of Systems: CONSTITUTIONAL: Denies fever, chills, or sweats. CARDIOVASCULAR: Denies chest pain, palpitations, or edema. RESPIRATORY: Denies cough or dyspnea. GASTROINTESTINAL: Denies abdominal pain, nausea, vomiting, or diarrhea. GENITOURINARY: Denies dysuria, frequency, urgency. Denies flank pain or hematuria. reports vaginal irritation after using new lubricant, no bleeding noted SKIN: Denies rash or itching. MUSCULOSKELETAL: Denies back pain or myalgia. Denies CVA tenderness NEUROLOGIC: Denies headache All systems reviewed & are unremarkable except as noted in HPI and below PMFSH Past Medical History Medical History Anxiety Asthma Asthma Depression Surgical History Surgical History Hx laparoscopic cholecystectomy lap marley 03/12/23 Hx of tubal ligation 2020 Surgical history unknown Family History Family History Mother Uterine fibroid Cerebrovascular accident Father Heart attack Other Heart disease Social History Social History Smoking packs per day: 1 Smoking cigarettes per day: 20.0 Years smoked: 8 Smoking pack-years: 8.00 Smoking status: Former smoker Tobacco type: cigarettes and e-cigarettes/vaping Second hand tobacco smoke exposure: Yes Smoking end date: 10/04/19 Additional smoking assessment comments: QUIT CIGARETTES 2019, NOW VAPING Alcohol intake: never Alcohol use details: socially/occassionally Substance use: never Substance use type: marijuana Living arrangements: with family Gender identity (if verbalized by the patient): Female Spiritual care concerns: No Comments At time of signature, agree with nursing past medical, surgical, social and family history. There is no relevant family history pertinent to the presenting complaint Exam Narrative: GENERAL: Well-appearing, well-nourished, and in no acute distress. HEAD: Normocephalic, atraumatic. NECK: Supple. no lymphadenopathy CHEST: Clear to auscultation. No respiratory distress.SAO2 100% on room air HEART: Regular rate and rhythm. No murmur heard. Normal peripheral pulses. ABDOMEN: Soft, nontender, nondistended, normal active bowel sounds. No CVA tenderness. Vaginal speculum exam performed with health therapist present. Some redness to external vaginal opening with [place] red with voiced irritat
== END 2024-07-06 18:50 | disposition home or self-care (01) ==
PROVIDERS: Emergency Provider Registered Nurse
DX: N89.8 Other specified noninflammatory disorders of vagina (principal); J45.909 Unspecified asthma, uncomplicated; Z87.891 Personal history of nicotine dependence
CPT/HCPCS: 99213; G0463

== ENCOUNTER 2024-08-13 13:37 | Emergency (ER) | payer OTHER, SELFPAY ==
--- NOTE | ~2024-08-13 | XR_ITS ---
EXAMINATION: XR chest 2V Exam Date/Time: 08/13/2024 14:20 [facility] [employer] HISTORY: HX OF ASTHMA AND SMOKING VAPE Comparison: 08/23/2020. RESULT: Lines, tubes, and devices: Cholecystectomy clips. Lungs and pleura: Clear. Cardiomediastinal silhouette: Stable. Other: No acute osseous or upper abdominal finding. IMPRESSION: No acute cardiopulmonary process. Reviewed, dictated and finalized at location K. OF [employer]
[2024-08-13 13:48] VITALS: BP 124/67; PULSE 112; PULSE 125; RESP 28; TEMP 37.1; O2SAT 96
[2024-08-13] MEDS: methylPREDNISolone SOD SUCC 125 MG VIAL IM (14:04)
[2024-08-13] MEDS: IPRATROPIUM 0.5 MG/ALBUTEROL SULFATE 2.5 MG AMPUL.NEB 3 ML INHALATION ×2 (14:04→15:08)
[2024-08-13 14:48] LABS: EDCOVIDSCREEN Negative (Negative); EDINFLUASCREEN Negative (Negative); EDINFLUBSCREEN Negative (Negative)
--- NOTE | 2024-08-13 15:06 | ED.GENADULT ---
HPI - General Adult General Chief complaint: Upper Respiratory Infection Stated complaint: Shortness of Breath/Cough Source: patient Mode of arrival: ambulatory Limitations: no limitations History of Present Illness HPI narrative: Patient presents for evaluation of respiratory symptoms since yesterday. Symptoms include chest tightness, shortness of breath, wheezing, productive cough. She has a history of asthma. She tried using her albuterol inhaler and did a neb treatment without much improvement thereafter. No fever, chills, nausea, vomiting or diarrhea. She does vape and smokes marijuana. No recent sick contacts to her knowledge. Related Data Home Medications Medication Instructions Recorded Confirmed albuterol sulfate 2.5 mg/3 mL 2.5 mg inhalation Q4H PRN 08/13/24 08/13/24 (0.083 %) solution for nebulization Shortness Of Breath Or Wheezing Allergies Allergy/AdvReac Type Severity Reaction Status Date / Time aston Allergy Severe Anaphylaxis Verified 08/13/24 14:14 Review of Systems Review of Systems: CONSTITUTIONAL: Denies fever, chills, or sweats. EYES: Denies visual changes, redness, or discharge. ENT: Denies rhinorrhea, congestion, sore throat, or otalgia. CARDIOVASCULAR: Denies chest pain, palpitations, or edema. RESPIRATORY: Reports productive cough, SOB, wheezing and chest tightness GASTROINTESTINAL: Denies abdominal pain, nausea, vomiting, or diarrhea. GENITOURINARY: Denies dysuria or hematuria. SKIN: Denies rash or itching. MUSCULOSKELETAL: Denies back pain, joint pain, or myalgia. NEUROLOGIC: Denies headache, numbness, dizziness, or weakness. PSYCHIATRIC: Denies anxiety or depression. [facility] Past Medical History Medical History Anxiety Asthma Asthma Depression Surgical History Surgical History Hx laparoscopic cholecystectomy lap marley 03/12/23 Hx of tubal ligation 2019 Surgical history unknown Family History Family History Mother Uterine fibroid Cerebrovascular accident Father Heart attack Other Heart disease Social History Social History Smoking packs per day: 1 Smoking cigarettes per day: 20.0 Years smoked: 8 Smoking pack-years: 8.00 Smoking status: Former smoker Tobacco type: cigarettes and e-cigarettes/vaping Second hand tobacco smoke exposure: Yes Smoking end date: 10/04/19 Additional smoking assessment comments: QUIT CIGARETTES 2019, NOW VAPING Alcohol intake: never Alcohol use details: socially/occassionally Substance use: never Substance use type: marijuana Living arrangements: with family Gender identity (if verbalized by the patient): Female Spiritual care concerns: No Course Course Emergency Course: This is a 29-year-old female who presented for evaluation of respiratory symptoms. COVID and influenza negative. Chest x-ray normal. She was given a nebulizer treatment and steroids. She continued to have wheezing so a 2nd neb treatment was administered. Patient had significant improvement in her symptoms or after. Saturations normal. She would like to be discharged home. Will discharge with prednisone, albuterol neb solution and Tessalon. Advised on smoking cessation. Follow up with primary provider. Go to the ER for worsening symptoms. Patient in agreement with plan of care. Level of Care: Express Care Visit Vital Signs Vital signs: Vital Signs Temperature 37.1 C 08/13/24 13:48 Pulse Rate 125 H 08/13/24 13:48 Respiratory Rate 28 H 08/13/24 13:48 Blood Pressure 124/67 08/13/24 13:48 Pulse Oximetry 96 08/13/24 13:48 Oxygen Delivery Room Air 08/13/24 13:48 Temperature 37.1 C 08/13/24 13:48 Pulse Rate 112 H 08/13/24 13:48 Respiratory Rate 28 H 08/13/24 13:48 Blood Pressure 124/67 08/13/24 13:48 Pulse Oximetry 96 08/13/24 13:48 Oxygen Delivery Room Air 08/13/24 13:48 Medical Decision Making Vital Signs Vital Signs: Vital Signs Temperature 37.1 C 08/13/24 13:48 Pulse Rate 125 H 08/13/24 13:48 Respiratory Rate 28 H 08/13/24 13:48 Blood Pressure 124/67 08/13/24 13:48 Pulse Oximetry 96 08/13/24 13:48 Oxygen Delivery Room Air 08/13/24 13:48 Temperature 37.1 C 08/13/24 13:48 Pulse Rate 112 H 08/13/24 13:48 Respiratory Rate 28 H 08/13/24 13:48 Blood Pressure 124/67 08/13/24 13:48 Pulse Oximetry 96 08/13/24 13:48 Oxygen Delivery Room Air 08/13/24 13:48 Lab Data Labs: Lab Results 08/13/24 Range/Units 14:45 POC Influenza A Ag Negative (Negative) POC Influenza B Ag Negative (Negative) POC SARS CoV-2 Ag Negative (Negative) Imaging Data Radiologist's impression: HISTORY: HX OF ASTHMA AND SMOKING VAPE Comparison: 08/23/2020. RESULT: Lines, tubes, and devices: Cholecystectomy clips. Lungs and pleura: Clear. Cardiomediastinal silhouette: Stable. Other: No acute osseous or upper abdominal finding. IMPRESSION: No acute cardiopulmonary process. Discharge Plan Discharge Clinical Impression: Upper respiratory infection, viral, Asthma Patient Disposition: Home, Self-Care Condition: Stable Instructions: Antibiotic Form, Asthma (ED), Upper Respiratory Infection (ED), Electronic Cigarettes and Your Health (ED) Patient Language: Palauan Prescriptions: New prednisone 50 mg tablet 50 mg PO DAILY Qty: 5 0RF benzonatate 100 mg capsule 100 mg PO TID Qty: 30 0RF albuterol sulfate 2.5 mg /3 mL (0.083 %) solution for nebulization 2.5 mg inhalation Q4H PRN (Reason: shortness of breath or wheezing) Qty: 75 0RF No Action albuterol sulfate 2.5 mg /3 mL (0.083 %) Solution For Nebulization 2.5 mg INHALATION Q4H PRN (Reason: Shortness Of Breath Or Wheezing) albuterol sulfate 90 mcg/actuation aerosol powdr breath activated 2 inhalation INHALATION Q4H PRN (Reason: shortness of breath or wheezing) Qty: 1 0RF Follow-up/Referrals: Rai Palacios MD [Physician] - Time of Disposition: 15:38
== END 2024-08-13 15:40 | disposition home or self-care (01) ==
PROVIDERS: Emergency Provider Nurse Practitioner
DX: J06.9 Acute upper respiratory infection, unspecified (principal); J45.909 Unspecified asthma, uncomplicated; Z20.822 Contact with and (suspected) exposure to COVID-19; F17.290 Nicotine dependence, other tobacco product, uncomplicated; F12.90 Cannabis use, unspecified, uncomplicated
CPT/HCPCS: 71046; 87426; 87804; 94640; 96372; 99213; G0463; J2919

== ENCOUNTER 2024-08-14 00:36 | Emergency (ER) | payer OTHER, SELFPAY ==
[2024-08-14] VITALS (8 sets, daily range): BP systolic 121–162; BP diastolic 66–75; PULSE 80–120; RESP 16–20; TEMP 36.4; O2SAT 94–100
--- NOTE | ~2024-08-14 | CT_ITS ---
Clinical Indication: Shortness of breath, tachycardia CT Scan of the Chest with Contrast: Technique: Contiguous sections were acquired throughout the chest after intravenous administration of 100 cc of Omnipaque 350. Dose reduction technique was used on this scan by utilizing automated expos ure control and iterative reconstruction technique. The dose-length product (DLP) was 460.06 mGy-cm. Findings: There is no evidence of any significant mediastinal, hilar or axillary lymphadenopathy. There is no f illing defect in the pulmonary arterial tree to suggest pulmonary embolus. There is no evidence of ao rtic dissection or aneurysm. There is no evidence of pleural or pericardial effusion. The lungs are clear, aside from minimal atelectatic change at the lingula and right middle lobe. Images through the upper abdomen reveal no abnormalities. Impression: No evidence of pulmonary embolus, aortic dissection, or aortic aneurysm. No significant pulmonary abnormality. Reviewed, dictated and finalized at [facility]. P CLIPPER Impression: No evidence of pulmonary embolus, aortic dissection, or aortic aneurysm. No significant pulmonary abnormality.
--- NOTE | ~2024-08-14 | XR_ITS ---
Portable chest x-ray Comparison: 08/13/2024 Clinical History: Cough Findings: Lungs are clear, without focal consolidation or pleural effusion. Cardiomediastinal silho uette is stable. Bones and soft tissues are unremarkable. Impression: Normal chest Reviewed, dictated and finalized at location . SER Impression: Normal chest
--- NOTE | 2024-08-14 00:45 | ECG_ITS ---
Test Date: 2024-08-14 00:56:08 Measurements Intervals [place] Rate: 118 P: 67 WV: 165 QRS: 54 QRSD: 94 T: 31 QT: 340 QTc: 477 Interpretive Statements SINUS TACHYCARDIA POSSIBLE LEFT ATRIAL ENLARGEMENT INCOMPLETE RIGHT BUNDLE BRANCH BLOCK BORDERLINE T WAVE ABNORMALITY- ANT/INF LEADS BASELINE ARTIFACT- I, II, AVR, AVL, V1-V3, V5 ABNORMAL ECG No previous ECG available for comparison Electronically Signed On 08-14-2024 06:45:33 ACCOUNTS SPECIALIST by Danial Walker D.O.
[2024-08-14 01:08] LABS: Basophils Percent Auto 0.1 % (0.2-1.2); Immature Granulocyte Absolute 0.08 K/mm3 (0.00-0.031); Immature Granulocyte Percent A 0.4 % (0-0.5); Lymphocytes Percent Auto 3.7 % (18.3-44.2); Mean Corpuscular HGB Conc 31.4 g/dl (32-36); Mean Corpuscular Hemoglobin 27.9 pg (26-34); Mean Corpuscular Volume 88.8 fl (80-100); Mean Platelet Volume 9.8 fl (7.4-10.4); Monocytes Absolute Auto 0.2 K/mm3 (0.1-0.6); Monocytes Percent Auto 0.9 % (2.6-8.5); Neutrophils Absolute Auto 17.8 K/mm3 (1.3-6.7); Neutrophils Percent Auto 94.9 % (45.5-73.1); Platelet Count Result 438 k/mm3 (150-375); Red Blood Count 3.94 M/mm3 (4.2-5.4); Red Cell Distribution Width 15.2 % (11.5-14.5); White Blood Count 18.8 K/mm3 (4.5-10.0)
--- NOTE | 2024-08-14 01:15 | ED_ITS ---
HPI - SOB/Dyspnea General Chief Complaint: Shortness of Breath/Dyspnea Stated Complaint: shortness of breath Time Seen by Provider: 08/14/24 00:59 Source: patient and other Mode of arrival: ambulatory Limitations: no limitations History of Present Illness HPI Narrative: patient presents with report shortness of breath chest tightness that is difficulty taking a breath. She went to urgent care 10 was swabbed and negative for COVID, flu, RSV. She reports that they did a chest x-ray that was negative and she received a steroid injection. She feels that her breathing is getting worse. Her limbs felt known including the tops of her thighs and injection she is having lot generalized fatigue. 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 She denies any extremity edema. She has underlying respiratory condition asthma which at baseline she uses albuterol inhaler p.r.n. as well as nebulizer p.r.n.. She has been using this But states she has been continuing to have wheezing. She denies any fever. She did have a cough It was productive although she states this improving with the benzonatate she was prescribed. Related Data Home Medications Medication Instructions Recorded Confirmed albuterol sulfate 2.5 mg/3 mL 2.5 mg inhalation Q4H PRN 08/13/24 08/13/24 (0.083 %) solution for nebulization Shortness Of Breath Or Wheezing Allergies Allergy/AdvReac Type Severity Reaction Status Date / Time aston Allergy Severe Anaphylaxis Verified 08/13/24 14:14 ON LICENSE OF [facility] Past Medical History Medical History Anxiety Asthma Depression Surgical History Surgical History Hx laparoscopic cholecystectomy lap marley 03/12/23 Hx of tubal ligation 2019 Surgical history unknown Family History Family History Mother Uterine fibroid Cerebrovascular accident Father Heart attack Other Heart disease Social History Social History (Updated 08/14/24 @ 18:48 by Nilsa Garcia MD) Smoking packs per day: 1 Smoking cigarettes per day: 20.0 Years smoked: 8 Smoking pack-years: 8.00 Smoking status: Former smoker Tobacco type: cigarettes and e-cigarettes/vaping Second hand tobacco smoke exposure: Yes Smoking end date: 10/04/19 Additional smoking assessment comments: QUIT CIGARETTES 2019, NOW VAPING Alcohol intake: never Alcohol use details: socially/occassionally Substance use: never Substance use type: marijuana Living arrangements: with family Occupation/Education: 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 HEAD: Normocephalic, atraumatic. EYES: Non injected, non icteric ENT: Nares clear, no rhinorrhea or epistaxis. NECK: Supple. CHEST: Speaking in full sentences. No respiratory distress. wheezes bilaterally although appreciated left greater than right HEART: tachycardic rate and rhythm. . ABDOMEN: Soft, nondistended. EXTREMITIES: Normal range of motion. No bilateral lower extremity edema. SKIN: Warm, dry, no rash. NEURO: No focal deficits. Alert and oriented x3. PSYCH: Normal mood and affect. Course Vital Signs Vital signs: Vital Signs Pulse Rate 118 H 08/14/24 00:52 Respiratory Rate 16 08/14/24 00:52 Blood Pressure 128/75 08/14/24 00:52 Pulse Oximetry 97 08/14/24 00:52 Temperature 97.5 F L 08/14/24 00:55 Pulse Rate 98 08/14/24 04:22 Respiratory Rate 16 08/14/24 04:22 Blood Pressure 137/75 08/14/24 04:22 Pulse Oximetry 100 08/14/24 04:22 Oxygen Delivery Room Air 08/14/24 00:55 MDM - SOB/Dyspnea MDM Narrative Medical decision making narrative: patient presents with shortness of breath chest tightness. She also feels fatigue and having numbness in her limbs and tops of thighs. In the emergency department she is afebrile with vital signs notable for tachycardia and hypertension. Patient has underlying asthma does wheezes on exam. Hyperglycemia with slight anion gap and mild acidosis. Leukocytosis is greater than 18. Possibly a component of stress response and/or steroid administration recently. The normocytic anemia is stable from previous. Beta hydroxybutyrate normal. P atient is reassessed at approximately 2:30 a.m.. She continues to have wheezes more appreciable on the left than the right. Patient has never required BiPAP or intubation for her asthma which is otherwise well controlled at baseline. Patient given steroid as well as magnesium. Elevated dimer, will proceed with CT imaging. This is negative for acute pr ocess. Patient is reassessed at approximately 4:00 a.m.. She states that she is breathing much better. She does continue to have some bilateral wheezes although greatly increased air movement. Will give additional albuterol treatment. Otherwise patient's asthma appears well controlled at baseline. Patient will be discharged with prescription for short course of steroids as well as a refill of her albuterol inhaler. She notes that she is in the process of trying to find a new primary care physician given a changed insurance. She is provided a referral/contact information for 1. Discharged home stable condition. Differential Diagnosis Differential diagnosis: Likely community acquired pneumonia, asthma with exacerbation, pulmonary embolism and other ( bronchitis) Lab Data Attestation: I reviewed the patient's lab results. Lab results narrative: Leukocytosis, normocytic anemia, thrombocytosis. 08/14/24 01:01 08/14/24 01:01 Labs: Lab Results 08/14/24 08/14/24 08/14/24 Range/Units 01:01 01:30 03:14 WBC 18.8 H (4.5-10.0) K/mm3 RBC 3.94 L (4.2-5.4) M/mm3 Hgb 11.0 L (12.0-15.0) g/dL Hct 35.0 L (37.0-47.0) % MCV 88.8 (80-100) fl MCH 27.9 (26-34) pg MCHC 31.4 L (32-36) g/dl RDW 15.2 H (11.5-14.5) % Plt Count 438 H (150-375) k/mm3 MPV 9.8 (7.4-10.4) fl Immature Gran % (Auto) 0.4 (0-0.5) % Neut % (Auto) 94.9 H (45.5-73.1) % Lymph % (Auto) 3.7 L (18.3-44.2) % Emmet % (Auto) 0.9 L (2.6-8.5) % Eos % (Auto) 0.0 (0-4.4) % Baso % (Auto) 0.1 L (0.2-1.2) % Lymph # (Auto) 0.70 L (0.9-3.2) K/mm3 Emmet # (Auto) 0.2 (0.1-0.6) K/mm3 Eos # (Auto) 0.0 (0-0.3) K/mm3 Baso # (Auto) 0.0 (0.0-0.1) K/mm3 Abs Immat Gran (auto) 0.08 H (0.00-0.031) K/mm3 Absolute Neuts (auto) 17.8 H (1.3-6.7) K/mm3 Absolute Nucleated RBC 0.000 (0.0-0.012) K/mm3 Nucleated RBC % 0.0 (0.0-0.2) % D-Dimer 1.20 H (<0.48) ug/mL Sodium 139 (137-145) mmol/L Potassium 4.2 (3.4-5.0) mmol/L Chloride 108 H (98-107) mmol/L Carbon Dioxide 16 L (22-30) mmol/L Anion Gap 15 H (4-12) mmol/L BUN 9 D (7-17) mg/dL Creatinine 0.60 L (0.7-1.0) mg/dL Estim Creat Clear Calc 125 ml/min Estimated GFR > 60 (59 - ) Glucose 150 H (65-110) mg/dL Calcium 9.8 (8.4-10.2) mg/dL Magnesium 2.0 (1.6-2.3) mg/dL Total Bilirubin 0.8 (0.2-1.3) mg/dL AST 32 (14-36) U/L ALT 29 (6-35) U/L Alkaline Phosphatase 53 (38-126) U/L Total Creatine Kinase 74 (30-135) U/L NT-Pro-B Natriuret Pep 78 (19.9-100) pg/mL Total Protein 9.0 H (6.3-8.2) g/dL Albumin 4.7 (3.5-5.1) g/dL Beta-Hydroxybutyrate/Acetoacetate 0.10 (0.02-0.27) mmol/L Urine Color Yellow (Yellow) Urine Appearance Clear (Clear) Urine pH 6.5 (5.0-9.0) Ur Specific [place] 1.022 (1.001-1.035) Urine Protein Negative (Negative) mg/dL Urine Glucose (UA) Trace H (Negative) mg/dL Urine Ketones Trace H (Negative) mg/dL Ur Blood (Man) Negative (Negative) Urine Nitrate Negative (Negative) Urine Bilirubin Negative (Negative) Urine Urobilinogen 1.0 (<2.0) mg/dL Leukocyte Esterase Rfl Negative (Negative) STEPHEN/UL Influenza A (RT-PCR) Negative (Negative) Influenza B (RT-PCR) Negative (Negative) RSV (RT-PCR) Negative (Negative) SARS-CoV-2 RNA (RT-PCR) Negative (Negative) Imaging Data Attestation: I personally reviewed and interpreted this imaging study as follows: My impression: No evidence of lobar pneumonia or pleural effusion on my independent interpretation of chest x-ray Radiologist's impression: CTA CHEST STAT RAD: No acute pulmonary embolism. ECG Data EKG #1: Attestation: I personally reviewed and interpreted this ECG as follows: ECG completion date: 08/14/24 ECG completion time: 00:56 Interpretation: Sinus tachycardia at a rate of 118 beats per minute. WA interval 165. QRS 94. QT/QTC 340/410. Patient has are as are complexes in V1 and V2. Good R-wave progression across the precordial leads. No T-wave inversions. Discharge Plan Discharge Clinical Impression: Asthma attack, Hyperglycemia, Leukocytosis, Normocytic anemia, Thrombocytosis Patient Disposition: Home, Self-Care Condition: Stable Instructions: Antibiotic Form, Asthma (DC), Leukocytosis (ED), Nondiabetic Hyperglycemia (ED), Anemia (ED) Additional Instructions: It seems you are having acute exacerbation of your asthma. This has responded well to the medications given. You are being prescribed a refill of your albuterol inhaler if you needed as well as a short course of steroids. Follow-up with your primary care physician. Given you are in the process of trying to find a new primary care physician, the name and contact information for 1 is provided below as a possible referral if you would like to see if they take your insurance. Return to the emergency department with any new or worsening symptoms. Prescriptions: New albuterol sulfate 90 mcg/actuation HFA aerosol inhaler 1 inh inhalation QID PRN (Reason: shortness of breath or wheezing) Qty: 6.7 0RF prednisone 20 mg tablet 40 mg PO DAILY 5 Days Qty: 10 0RF No Action albuterol sulfate 2.5 mg /3 mL (0.083 %) Solution For Nebulization 2.5 mg INHALATION Q4H PRN (Reason: Shortness Of Breath Or Wheezing) prednisone 50 mg tablet 50 mg PO DAILY Qty: 5 0RF benzonatate 100 mg capsule 100 mg PO TID Qty: 30 0RF albuterol sulfate 2.5 mg /3 mL (0.083 %) solution for nebulization 2.5 mg inhalation Q4H PRN (Reason: shortness of breath or wheezing) Qty: 75 0RF albuterol sulfate 90 mcg/actuation aerosol powdr breath activated 2 inhalation INHALATION Q4H PRN (Reason: shortness of breath or wheezing) Qty: 1 0RF Follow-up/Referrals: PHYSICIAN,PRODUCTION TECH [Primary Care Provider] - Rai Palacios MD [Physician] - (family practice) Stand Alone Forms: Work/School Release IP Time of Disposition: 04:10
[2024-08-14 01:21] LABS: Alanine Aminotransferase 29 U/L (6-35); Albumin Level 4.7 g/dL (3.5-5.1); Alkaline Phosphatase 53 U/L (38-126); Anion Gap 15 mmol/L (4-12); Aspartate Amino Transferase 32 U/L (14-36); Bilirubin,Total 0.8 mg/dL (0.2-1.3); Blood Urea Nitrogen 9 mg/dL (7-17); Calcium 9.8 mg/dL (8.4-10.2); Carbon Dioxide 16 mmol/L (22-30); Chloride 108 mmol/L (98-107); Estimated CRCL calculation 125 ml/min; Estimated Glomerular Filt Rate > 60; Glucose 150 mg/dL (65-110); Potassium 4.2 mmol/L (3.4-5.0); Sodium 139 mmol/L (137-145)
[2024-08-14] MEDS: IPRATROPIUM 0.5 MG/ALBUTEROL SULFATE 2.5 MG AMPUL.NEB 3 ML INHALATION (01:33)
[2024-08-14 02:06] LABS: Creatine Kinase 74 U/L (30-135)
[2024-08-14] MEDS: LACTATED RINGERS 500 ML 999 ML IV CONT (02:13)
[2024-08-14 02:15] LABS: NT Pro B Type Natriuretic Pept 78 pg/mL (19.9-100)
[2024-08-14 02:16] LABS: Influenza A QL RT-PCR Negative (Negative); Influenza B QL RT-PCR Negative (Negative); RSV RNA, RT-PCR Negative (Negative); SARS-CoV-2 RNA PCR Negative (Negative)
[2024-08-14] MEDS: MAGNESIUM SULF 1 GM/D5W 100 ML 1 GM/100 ML BAG IVPB (02:38)
[2024-08-14] MEDS: ALBUTEROL SULFATE NEB 2.5 MG/3 ML INH INHALATION ×2 (02:41→04:12)
[2024-08-14] MEDS: predniSONE 20 MG TABLET 40 MG PO (02:53)
[2024-08-14 03:26] LABS: Add Urine Microscopic? NO; Appearance Urine Clear (Clear); Bilirubin Urine Negative (Negative); Blood Urine Negative (Negative); Color Urine Yellow (Yellow); Glucose Urine UA Trace mg/dL (Negative); Ketones Urine Trace mg/dL (Negative); Leukocyte Esterase Ur Negative LEU/UL (Negative); Nitrate Urine Negative (Negative); Protein Urine Negative (Negative); Specific Grav Ur 1.022 (1.001-1.035); pH Urine 6.5 (5.0-9.0)
== END 2024-08-14 04:26 | disposition home or self-care (01) ==
PROVIDERS: Emergency Provider Student in an Organized Health Care Education/Training Program
DX: J45.901 Unspecified asthma with (acute) exacerbation (principal); D64.9 Anemia, unspecified; D72.829 Elevated white blood cell count, unspecified; D75.839 Thrombocytosis, unspecified; R73.9 Hyperglycemia, unspecified; Z90.49 Acquired absence of other specified parts of digestive tract
CPT/HCPCS: 36415; 71045; 71275; 80053; 81003; 82010; 82550; 83735; 83880; 85025; 85380; 87637; 93005; 94640; 96365; 99284; 99285; J3475; J7120; J7512; Q9967

== ENCOUNTER 2024-08-16 14:15 | Observation (INO) | payer OTHER, SELFPAY ==
--- NOTE | ~2024-08-16 | XR_ITS ---
EXAMINATION: XR chest 2V DATE: 08/16/2024 15:09 INDICATION: Shortness of breath. TECHNIQUE: Frontal and lateral views of the chest were obtained. COMPARISON: Chest single view 08/14/2024, chest CT 08/14/2024 FINDINGS: There is mild atelectasis in right middle lobe. No pleural effusion or pneumothorax. The he art size is normal. Surgical clips in the right upper quadrant are likely from cholecystectomy. IMPRESSION: 1. Mild atelectasis in right middle lobe. Reviewed, dictated and finalized at location A. 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
--- NOTE | 2024-08-16 14:27 | ED.SOB ---
HPI - SOB/Dyspnea General Chief Complaint: Shortness of Breath/Dyspnea <Ida Jackson PA-C - Last Filed: 08/18/24 10:36> Stated Complaint: dyspnea <Ida Jackson PA-C - Last Filed: 08/18/24 10:36> Time Seen by Provider: 08/16/24 14:27 <Ida Jackson PA-C - Last Filed: 08/18/24 10:36> Focused HPI: This is a 29 year old female that presents to the ER for shortness of breath. Ongoing over the last several days. Reports history of asthma. She had a recent ER visit and CT scan. She was prescribed prednisone and a nebulizer with little relief. Reports cough. Denies fever. GENERAL: Well-appearing, well-nourished, and in no acute distress. HEAD: Normocephalic, atraumatic. CHEST: No respiratory distress. Mild respiratory wheezing. HEART: Regular rate and rhythm.? NEURO: ?Alert and oriented x3. Patient screened in triage and initial orders placed.? ?Additional care and disposition to be based upon?diagnostic testing and treatment. <Ida Jackson PA-C - Last Filed: 08/18/24 10:36> History of Present Illness HPI Narrative: patient 29-year-old female who presents emergency department with chief complaint of shortness of breath. Patient has history of asthma reports she has been seen in the emergency department and started on steroids has been taking for last 4 days has been using her nebulizer even at work every hour the patient states that she is not getting any better does report that she has had a cough but nonproductive. <Jimmy Henry MD - Last Filed: 08/16/24 23:48> Related Data Home Medications: Home Medications Medication Instructions Recorded Confirmed albuterol sulfate 2.5 mg/3 mL 2.5 mg inhalation Q4H PRN 08/13/24 08/17/24 (0.083 %) solution for nebulization Shortness Of Breath Or Wheezing <Ida Jackson PA-C - Last Filed: 08/18/24 10:36> Allergies/Adverse Reactions: Allergies Allergy/AdvReac Type Severity Reaction Status Date / Time aston Allergy Severe Anaphylaxis Verified 08/13/24 14:14 <Ida Jackson PA-C - Last Filed: 08/18/24 10:36> Review of Systems Review of Systems: A 10 system review of systems was completed on the patient and is negative except for what is stated in the HPI. Nursing and ancillary documentation was reviewed. <Jimmy Henry MD - Last Filed: 08/16/24 23:48> [facility] Past Medical History Medical History: Medical History Anxiety Asthma Depression <Ida Jackson PA-C - Last Filed: 08/18/24 10:36> Surgical History Surgical History: Surgical History Hx laparoscopic cholecystectomy lap marley 03/12/23 Hx of tubal ligation 2019 Surgical history unknown <Ida Jackson PA-C - Last Filed: 08/18/24 10:36> Family History Family History: Family History Mother Uterine fibroid Cerebrovascular accident Father Heart attack Other Heart disease <Ida Jackson PA-C - Last Filed: 08/18/24 10:36> Social History Social History: Social History Smoking packs per day: 1 Smoking cigarettes per day: 20.0 Years smoked: 8 Smoking pack-years: 8.00 Smoking status: Former smoker Tobacco type: e-cigarettes/vaping Second hand tobacco smoke exposure: Yes Smoking end date: 10/04/19 Additional smoking assessment comments: QUIT CIGARETTES 2019, NOW VAPING Alcohol intake: never Alcohol use details: socially/occassionally Substance use: current Substance use type: marijuana Last use: 08/16/24 Do You Feel Safe in your Home?: Yes Lack of Transportation: No Lack of Food: Never True Current Housing: I Have Housing Concerned About Future Housing: No Difficulty Paying Gas/Electric Bills: No Difficulty Paying for Meds: No Currently Unemployed: No Education: High School Diploma/GED Difficulty w/ Childcare or Family Care: No Living arrangements: with family Occupation/Education: 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 HEAD: Normocephalic, atraumatic. EYES: PERRLA and EOMI. ENT: Nares clear, no rhinorrhea or epistaxis. Mucous membranes moist. NECK: Supple. CHEST: Coarse breath sounds to auscultation. No respiratory distress. HEART: Regular rate and rhythm. No murmur heard. Normal peripheral pulses. ABDOMEN: Soft, nontender, nondistended, normal active bowel sounds. EXTREMITIES: Normal range of motion. No edema. SKIN: Warm, dry, no rash. NEURO: No focal deficits. Alert and oriented x3. PSYCH: Normal mood and affect. <Jimmy Henry MD - Last Filed: 08/16/24 23:48> Course Vital Signs Vital signs: Vital Signs Temperature 97.9 F 08/16/24 14:29 Pulse Rate 100 08/16/24 14:29 Respiratory Rate 24 H 08/16/24 14:29 Blood Pressure 151/95 H 08/16/24 14:29 Pulse Oximetry 99 08/16/24 14:29 Oxygen Delivery Room Air 08/16/24 14:29 Temperature 98 F 08/18/24 04:50 Pulse Rate 88 08/18/24 09:00 Respiratory Rate 18 08/18/24 09:00 Blood Pressure 124/69 08/18/24 04:50 Pulse Oximetry 99 08/18/24 07:05 Oxygen Delivery Room Air 08/18/24 08:00 Fraction of Inspired Oxygen 21 08/18/24 07:05 <Ida Jackson PA-C - Last Filed: 08/18/24 10:36> Vital Signs Temperature 97.9 F 08/16/24 14:29 Pulse Rate 100 08/16/24 14:29 Respiratory Rate 24 H 08/16/24 14:29 Blood Pressure 151/95 H 08/16/24 14:29 Pulse Oximetry 99 08/16/24 14:29 Oxygen Delivery Room Air 08/16/24 14:29 Temperature 98 F 08/18/24 04:50 Pulse Rate 88 08/18/24 09:00 Respiratory Rate 18 08/18/24 09:00 Blood Pressure 124/69 08/18/24 04:50 Pulse Oximetry 99 08/18/24 07:05 Oxygen Delivery Room Air 08/18/24 08:00 Fraction of Inspired Oxygen 21 08/18/24 07:05 <Jimmy Henry MD - Last Filed: 08/16/24 23:48> MDM - SOB/Dyspnea MDM Narrative Medical decision making narrative: differential diagnosis includes pneumonia, asthma exacerbation, failed outpatient therapy chest x-ray showed evidence of atelectasis the patient's white blood cell count is increased 18.8 the patient has been on 4 days of steroids but is not improving having to use her nebulizer every hour at home due to this the case was discussed with the hospitalist the patient will be empirically covered with antibiotics as the atelectasis could be infection given her leukocytosis. <Jimmy Henry MD - Last Filed: 08/16/24 23:48> Lab Data Result diagrams: 08/18/24 06:00 08/18/24 06:00 <Ida Jackson PA-C - Last Filed: 08/18/24 10:36> Labs: Lab Results 08/16/24 Range/Units 22:13 WBC 18.8 H (4.5-10.0) K/mm3 RBC 3.87 L (4.2-5.4) M/mm3 Hgb 11.1 L (12.0-15.0) g/dL Hct 33.5 L (37.0-47.0) % MCV 86.6 (80-100) fl MCH 28.7 (26-34) pg MCHC 33.1 (32-36) g/dl RDW 15.3 H (11.5-14.5) % Plt Count 474 H (150-375) k/mm3 MPV 9.4 (7.4-10.4) fl Immature Gran % (Auto) 0.6 H (0-0.5) % Neut % (Auto) 68.6 (45.5-73.1) % Lymph % (Auto) 20.7 (18.3-44.2) % Whit[place] % (Auto) 7.7 (2.6-8.5) % Eos % (Auto) 2.1 (0-4.4) % Baso % (Auto) 0.3 (0.2-1.2) % Lymph # (Auto) 3.90 H (0.9-3.2) K/mm3 [place] # (Auto) 1.5 H (0.1-0.6) K/mm3 Eos # (Auto) 0.4 H (0-0.3) K/mm3 Baso # (Auto) 0.1 (0.0-0.1) K/mm3 Abs Immat Gran (auto) 0.11 H (0.00-0.031) K/mm3 Absolute Neuts (auto) 12.9 H (1.3-6.7) K/mm3 Absolute Nucleated RBC 0.000 (0.0-0.012) K/mm3 Nucleated RBC % 0.0 (0.0-0.2) % Sodium 139 (137-145) mmol/L Potassium 3.6 (3.4-5.0) mmol/L Chloride 105 (98-107) mmol/L Carbon Dioxide 24 (22-30) mmol/L Anion Gap 10 (4-12) mmol/L BUN 11 (7-17) mg/dL Creatinine 0.60 L (0.7-1.0) mg/dL Estim Creat Clear Calc 134 ml/min Estimated GFR > 60 (59 - ) Glucose 110 (65-110) mg/dL Calcium 9.7 (8.4-10.2) mg/dL Total Bilirubin 0.7 (0.2-1.3) mg/dL AST 29 (14-36) U/L ALT 31 (6-35) U/L Alkaline Phosphatase 57 (38-126) U/L Troponin I < 0.012 (0.000-0.034) ng/mL NT-Pro-B Natriuret Pep < 20 (19.9-100) pg/mL Total Protein 9.0 H (6.3-8.2) g/dL Albumin 4.8 (3.5-5.1) g/dL <Ida Jackson PA-C - Last Filed: 08/18/24 10:36> Lab Results 08/16/24 Range/Units 22:13 WBC 18.8 H (4.5-10.0) K/mm3 RBC 3.87 L (4.2-5.4) M/mm3 Hgb 11.1 L (12.0-15.0) g/dL Hct 33.5 L (37.0-47.0) % MCV 86.6 (80-100) fl MCH 28.7 (26-34) pg MCHC 33.1 (32-36) g/dl RDW 15.3 H (11.5-14.5) % Plt Count 474 H (150-375) k/mm3 MPV 9.4 (7.4-10.4) fl Immature Gran % (Auto) 0.6 H (0-0.5) % Neut % (Auto) 68.6 (45.5-73.1) % Lymph % (Auto) 20.7 (18.3-44.2) % [place] % (Auto) 7.7 (2.6-8.5) % Eos % (Auto) 2.1 (0-4.4) % Baso % (Auto) 0.3 (0.2-1.2) % Lymph # (Auto) 3.90 H (0.9-3.2) K/mm3 [place] # (Auto) 1.5 H (0.1-0.6) K/mm3 Eos # (Auto) 0.4 H (0-0.3) K/mm3 Baso # (Auto) 0.1 (0.0-0.1) K/mm3 Abs Immat Gran (auto) 0.11 H (0.00-0.031) K/mm3 Absolute Neuts (auto) 12.9 H (1.3-6.7) K/mm3 Absolute Nucleated RBC 0.000 (0.0-0.012) K/mm3 Nucleated RBC % 0.0 (0.0-0.2) % Sodium 139 (137-145) mmol/L Potassium 3.6 (3.4-5.0) mmol/L Chloride 105 (98-107) mmol/L Carbon Dioxide 24 (22-30) mmol/L Anion Gap 10 (4-12) mmol/L BUN 11 (7-17) mg/dL Creatinine 0.60 L (0.7-1.0) mg/dL Estim Creat Clear Calc 134 ml/min Estimated GFR > 60 (59 - ) Glucose 110 (65-110) mg/dL Calcium 9.7 (8.4-10.2) mg/dL Total Bilirubin 0.7 (0.2-1.3) mg/dL AST 29 (14-36) U/L ALT 31 (6-35) U/L Alkaline Phosphatase 57 (38-126) U/L Troponin I < 0.012 (0.000-0.034) ng/mL NT-Pro-B Natriuret Pep < 20 (19.9-100) pg/mL Total Protein 9.0 H (6.3-8.2) g/dL Albumin 4.8 (3.5-5.1) g/dL <Jimmy Henry MD - Last Filed: 08/16/24 23:48> Imaging Data Radiologist's impression: ITS Impressions Chest X-Ray 08/16/24 15:10 IMPRESSION: 1. Mild atelectasis in right middle lobe. <Ida Jackson PA-C - Last Filed: 08/18/24 10:36> Critical Care Time Critical Care Time Critical Care Time: No <Ida Jackson PA-C - Last Filed: 08/18/24 10:36> Discharge Plan Discharge Clinical Impression: Acute asthma exacerbation <Ida Jackson PA-C - Last Filed: 08/18/24 10:36> Patient Disposition: Still a Patient <Ida Jackson PA-C - Last Filed: 08/18/24 10:36> Condition: Stable <Ida Jackson PA-C - Last Filed: 08/18/24 10:36> Time of Disposition: 23:48 <Ida Jackson PA-C - Last Filed: 08/18/24 10:36> 23:48 <Jimmy Henry MD - Last Filed: 08/16/24 23:48>
[2024-08-16 14:29] VITALS: BP 151/95; PULSE 100; RESP 24; TEMP 36.6; O2SAT 99
[2024-08-16 14:41] VITALS: PULSE 92; RESP 18
[2024-08-16] MEDS: IPRATROPIUM 0.5 MG/ALBUTEROL SULFATE 2.5 MG AMPUL.NEB 3 ML INHALATION ×2 (14:41→22:37)
[2024-08-16 14:51] VITALS: PULSE 96; RESP 18
[2024-08-16 18:49] VITALS: BP 120/74; PULSE 72; RESP 16; TEMP 36.4; O2SAT 100
--- NOTE | 2024-08-16 21:50 | ECG_ITS ---
Test Date: 2024-08-16 22:11:48 Measurements Intervals [place] Rate: 72 P: -30 RI: 139 QRS: 47 QRSD: 89 T: 25 QT: 350 QTc: 383 Interpretive Statements SINUS RHYTHM INCOMPLETE RIGHT BUNDLE BRANCH BLOCK BASELINE ARTIFACT- I, II, III, AVR, AVL, AVF, V1-V6 BORDERLINE ECG Compared to ECG 08/14/2024 00:56:08 HEART RATE HAS DECREASED Electronically Signed On 08-17-2024 05:25:02 OIL FIRE SPECIALIST by Danial Walker D.O.
[2024-08-16] MEDS: methylPREDNISolone SOD SUCC 125 MG VIAL IV PUSH (22:14)
[2024-08-16 22:21] LABS: Basophils Absolute Auto 0.1 K/mm3 (0.0-0.1); Basophils Percent Auto 0.3 % (0.2-1.2); Eosinophils Absolute Auto 0.4 K/mm3 (0-0.3); Eosinophils Percent Auto 2.1 % (0-4.4); Hematocrit 33.5 % (37.0-47.0); Hemoglobin 11.1 g/dL (12.0-15.0); Immature Granulocyte Absolute 0.11 K/mm3 (0.00-0.031); Immature Granulocyte Percent A 0.6 % (0-0.5); Lymphocytes Percent Auto 20.7 % (18.3-44.2); Mean Corpuscular HGB Conc 33.1 g/dl (32-36); Mean Corpuscular Hemoglobin 28.7 pg (26-34); Mean Corpuscular Volume 86.6 fl (80-100); Mean Platelet Volume 9.4 fl (7.4-10.4); Monocytes Absolute Auto 1.5 K/mm3 (0.1-0.6); Monocytes Percent Auto 7.7 % (2.6-8.5); Neutrophils Absolute Auto 12.9 K/mm3 (1.3-6.7); Neutrophils Percent Auto 68.6 % (45.5-73.1); Platelet Count Result 474 k/mm3 (150-375); Red Blood Count 3.87 M/mm3 (4.2-5.4); Red Cell Distribution Width 15.3 % (11.5-14.5); White Blood Count 18.8 K/mm3 (4.5-10.0)
[2024-08-16 22:31] LABS: Alanine Aminotransferase 31 U/L (6-35); Albumin Level 4.8 g/dL (3.5-5.1); Alkaline Phosphatase 57 U/L (38-126); Anion Gap 10 mmol/L (4-12); Aspartate Amino Transferase 29 U/L (14-36); Bilirubin,Total 0.7 mg/dL (0.2-1.3); Blood Urea Nitrogen 11 mg/dL (7-17); Calcium 9.7 mg/dL (8.4-10.2); Carbon Dioxide 24 mmol/L (22-30); Chloride 105 mmol/L (98-107); Estimated CRCL calculation 134 ml/min; Estimated Glomerular Filt Rate > 60; Glucose 110 mg/dL (65-110); Potassium 3.6 mmol/L (3.4-5.0); Sodium 139 mmol/L (137-145)
[2024-08-16 22:37] VITALS: PULSE 90; RESP 20
[2024-08-16 22:50] LABS: NT Pro B Type Natriuretic Pept < 20 pg/mL (19.9-100); Troponin I < 0.012 ng/mL (0.000-0.034)
[2024-08-17] VITALS (16 sets, daily range): BP systolic 101–139; BP diastolic 35–88; PULSE 76–102; RESP 16–20; TEMP 36.1–36.9; O2SAT 98–100; BMI 31.6
[2024-08-17] MEDS: IPRATROPIUM 0.5 MG/ALBUTEROL SULFATE 2.5 MG AMPUL.NEB 3 ML INHALATION ×6 (00:22→20:19)
[2024-08-17 00:23] LABS: Add Urine Microscopic? NO; Appearance Urine Clear (Clear); Bilirubin Urine Negative (Negative); Blood Urine Negative (Negative); Color Urine Yellow (Yellow); Glucose Urine UA Negative (Negative); Ketones Urine Negative (Negative); Leukocyte Esterase Ur Negative LEU/UL (Negative); Nitrate Urine Negative (Negative); Protein Urine Negative (Negative); Specific Grav Ur 1.026 (1.001-1.035)
[2024-08-17 00:56] LABS: Influenza A QL RT-PCR Negative (Negative); Influenza B QL RT-PCR Negative (Negative); RSV RNA, RT-PCR Negative (Negative); SARS-CoV-2 RNA PCR Negative (Negative)
[2024-08-17] MEDS: AZITHROMYCIN 500 MG/NS 250 ML 500 MG/250 ML BAG 250 MG IVPB ×2 (00:56→22:06)
--- NOTE | 2024-08-17 02:42 | ADMGEN ---
This patient, Sandhya Munoz, was admitted to [facility] Surg Room 303-01. Patient/family oriented to hospital policies and general routines including ID bracelet, bed and alarms, visiting hours, pain management, procedures, bathroom and other care routines, personal items, smoking policy, room service/diet, and visiting hours. Information on how to activate the Rapid Response Team has been discussed. Patient/Family are encouraged to report perceived risks to care and to ask questions if they do not understand what they are told or what they should do.
[2024-08-17] MEDS: methylPREDNISolone SOD SUCC 125 MG VIAL 60 MG IV PUSH ×2 (05:06→14:18)
[2024-08-17] MEDS: PHENOL/SOD PHENO SPRAY CHERRY (*BKC) 1 SPRAY MUCOUS MEM ×2 (09:23→13:52)
[2024-08-17] MEDS: ACETAMINOPHEN 325 MG TABLET 650 MG PO (14:25)
[2024-08-17 16:32] LABS: Lactic Acid Reflex 2.6 mmol/L (0.7-2.0)
--- NOTE | 2024-08-17 16:37 | P.HP_ITS ---
H&P: HPI History of Present Illness Date/Time: 08/17/24 16:37 Chief Complaint: Shortness of breath Narrative: 29 yo female with PMH of ASthma who presented to the ER on account of SOB and wheezing. She noted her symptoms started on Wednesday and has continued to worsen, associated with cough. Denies any fever, no vomiting, abd pain or diarrhea. 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 ER evaluation notable for HR 100, RR 24, BP 151/95, T 97.9; labs notable for WBC 18.8, Hb 11.1, Lactic acid 2.6, CXR showed atelectasis, however will treat as pneumonia since prior CXR showed no atelectasis and patient is septic. Review of Systems Review of Systems: All other systems were reviewed and negative except as noted in the HPI above PMFSH Past Medical History Medical History Anxiety Asthma Depression Surgical History Surgical History Hx laparoscopic cholecystectomy lap marley 03/12/23 Hx of tubal ligation 2019 Surgical history unknown Family History Family History Mother Uterine fibroid Cerebrovascular accident Father Heart attack Other Heart disease Social History Social History Smoking packs per day: 1 Smoking cigarettes per day: 20.0 Years smoked: 8 Smoking pack-years: 8.00 Smoking status: Former smoker Tobacco type: e-cigarettes/vaping Second hand tobacco smoke exposure: Yes Smoking end date: 10/04/19 Additional smoking assessment comments: QUIT CIGARETTES 2019, NOW VAPING Alcohol intake: never Alcohol use details: socially/occassionally Substance use: current Substance use type: marijuana Last use: 08/16/24 Do You Feel Safe in your Home?: Yes Lack of Transportation: No Lack of Food: Never True Current Housing: I Have Housing Concerned About Future Housing: No Difficulty Paying Gas/Electric Bills: No Difficulty Paying for Meds: No Currently Unemployed: No Education: High School Diploma/GED Difficulty w/ Childcare or Family Care: No Living arrangements: with family Occupation/Education: occupation 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 Gender identity (if verbalized by the patient): Female Spiritual care concerns: No Meds Home Medications and Allergies Home Medications Medication Instructions Recorded Confirmed Type albuterol sulfate 90 mcg/actuation 2 inhalation inhalation Q4H PRN 01/23/20 08/17/24 Rx breath activated powder inhaler shortness of breath or wheezing #1 ea albuterol sulfate 2.5 mg/3 mL 2.5 mg (3 mL) inhalation Q4H PRN 08/13/24 08/17/24 Rx (0.083 %) solution for nebulization shortness of breath or wheezing #75 mL albuterol sulfate 2.5 mg/3 mL 2.5 mg inhalation Q4H PRN 08/13/24 08/17/24 History (0.083 %) solution for nebulization Shortness Of Breath Or Wheezing benzonatate 100 mg capsule 100 mg PO TID #30 caps 08/13/24 08/17/24 Rx prednisone 50 mg tablet 50 mg PO DAILY #5 tabs 08/13/24 08/17/24 Rx albuterol sulfate 90 mcg/actuation 1 inh inhalation QID PRN shortness 08/14/24 08/17/24 Rx aerosol inhaler of breath or wheezing #6.7 grams prednisone 20 mg tablet 40 mg PO DAILY 5 days #10 tabs 08/14/24 08/17/24 Rx Allergies Allergy/AdvReac Type Severity Reaction Status Date / Time aston Allergy Severe Anaphylaxis Verified 08/13/24 14:14 Vital Signs Vital Signs - 24 hr 08/16/24 18:49 08/16/24 22:37 08/17/24 00:24 Temperature 97.6 F Pulse Rate 72 90 92 Respiratory Rate 16 20 20 Blood Pressure 120/74 Pulse Oximetry 100 Oxygen Delivery 08/17/24 00:30 08/17/24 01:17 08/17/24 04:21 Temperature 98.2 F Pulse Rate 76 85 80 Respiratory Rate 16 16 18 Blood Pressure 124/88 132/81 Pulse Oximetry 100 98 Oxygen Delivery 08/17/24 04:30 08/17/24 05:26 08/17/24 07:00 Temperature 98.5 F Pulse Rate 80 82 100 Respiratory Rate 20 18 18 Blood Pressure 120/68 Pulse Oximetry 100 98 Oxygen Delivery Room Air 08/17/24 07:00 08/17/24 07:10 08/17/24 09:20 Temperature Pulse Rate 100 96 Respiratory Rate 18 18 Blood Pressure Pulse Oximetry Oxygen Delivery Room Air 08/17/24 10:50 08/17/24 11:00 08/17/24 14:56 Temperature Pulse Rate 92 94 80 Respiratory Rate 18 18 18 Blood Pressure Pulse Oximetry Oxygen Delivery 08/17/24 15:06 08/17/24 14:00 Temperature 96.9 F L Pulse Rate 92 80 Respiratory Rate 18 18 Blood Pressure 101/35 L Pulse Oximetry 100 Oxygen Delivery Exam Narrative: General: alert and comfortable Eyes: EOMI, PERRLA ENNT External ears normal, Neck is supple, no masses, Respiratory systems: Clear to auscultation Cardiovascular S1, S2, normal rhythm, no murmur, rub, or gallop; no thrill or palpable murmurs on palpation. Gastrointestinal: soft, non-tender, and non-distended abdomen with no masses; BS present Skin: no rash, lesions, ulcerations, subcutaneous nodules or induration Musculoskeletal: no abnormality and no tenderness, normal ROM Neurologic: Alert and oriented x3, non focal Mental Status Exam: normal affect H&P: Results Labs Labs: Short CBC 08/16/24 Range/Units 22:13 WBC 18.8 H (4.5-10.0) K/mm3 Hgb 11.1 L (12.0-15.0) g/dL Hct 33.5 L (37.0-47.0) % Plt Count 474 H (150-375) k/mm3 BMP 08/16/24 22:13 Sodium 139 Potassium 3.6 Chloride 105 Carbon Dioxide 24 BUN 11 Creatinine 0.60 L Glucose 110 Calcium 9.7 Cardiac Enzymes 08/16/24 Range/Units 22:13 Troponin I < 0.012 (0.000-0.034) ng/mL Liver Function 08/16/24 Range/Units 22:13 Total Bilirubin 0.7 (0.2-1.3) mg/dL AST 29 (14-36) U/L ALT 31 (6-35) U/L Alkaline Phosphatase 57 (38-126) U/L Albumin 4.8 (3.5-5.1) g/dL Urine 08/17/24 Range/Units 00:12 Urine Color Yellow (Yellow) Urine Appearance Clear (Clear) Urine pH 6.0 (5.0-9.0) Ur Specific [place] 1.026 (1.001-1.035) Urine Protein Negative (Negative) mg/dL Urine Glucose (UA) Negative (Negative) mg/dL Assessment and Plan Assessment and plan (1) Acute asthma exacerbation: Code(s): J45.901 - Unspecified asthma with (acute) exacerbation Status: Acute (2) Sepsis: Code(s): A41.9 - Sepsis, unspecified organism Status: Acute Plan Sepsis patient was septic on admission with Tachycardia, tachypnea and leukocytosis vital signs normal now and patient on room air likely from Pneumonia CXR showed right middle lobe atelectasis, not present on prior CXR will treat as pneumonia F/u with cultures and continue Rocephin Azithromycin monitor closely Asthma exacerbation Patient has history fo asthma and 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
[2024-08-17] MEDS: predniSONE 20 MG TABLET 40 MG PO (17:37)
[2024-08-17 19:20] LABS: Reflex Lactic Acid Yes or No Add Lactic
[2024-08-17 20:35] LABS: Lactic Acid 2.6 mmol/L (0.7-2.0)
[2024-08-17] MEDS: guaiFENesin 12 HR 600 MG TABCR PO (22:06)
[2024-08-18 01:00] VITALS: PULSE 73; RESP 18
[2024-08-18] MEDS: IPRATROPIUM 0.5 MG/ALBUTEROL SULFATE 2.5 MG AMPUL.NEB 3 ML INHALATION ×3 (01:00→07:05)
[2024-08-18 01:10] VITALS: PULSE 74; RESP 18
[2024-08-18 04:50] VITALS: BP 124/69; PULSE 98; RESP 20; TEMP 36.6; O2SAT 100
[2024-08-18 05:05] VITALS: PULSE 77; RESP 18
[2024-08-18 06:24] LABS: Basophils Absolute Auto 0.1 K/mm3 (0.0-0.1); Basophils Percent Auto 0.2 % (0.2-1.2); Hematocrit 30.9 % (37.0-47.0); Hemoglobin 10.3 g/dL (12.0-15.0); Immature Granulocyte Absolute 0.25 K/mm3 (0.00-0.031); Immature Granulocyte Percent A 0.9 % (0-0.5); Lymphocytes Absolute Auto 2.23 K/mm3 (0.9-3.2); Lymphocytes Percent Auto 8.3 % (18.3-44.2); Mean Corpuscular HGB Conc 33.3 g/dl (32-36); Mean Platelet Volume 9.7 fl (7.4-10.4); Monocytes Absolute Auto 1.6 K/mm3 (0.1-0.6); Monocytes Percent Auto 5.9 % (2.6-8.5); Neutrophils Absolute Auto 22.8 K/mm3 (1.3-6.7); Neutrophils Percent Auto 84.7 % (45.5-73.1); Platelet Count Result 455 k/mm3 (150-375); Red Blood Count 3.55 M/mm3 (4.2-5.4); Red Cell Distribution Width 15.3 % (11.5-14.5); White Blood Count 26.9 K/mm3 (4.5-10.0)
[2024-08-18 06:34] LABS: Lactic Acid Reflex 1.7 mmol/L (0.7-2.0)
[2024-08-18 06:36] LABS: Alanine Aminotransferase 26 U/L (6-35); Albumin Level 4.3 g/dL (3.5-5.1); Alkaline Phosphatase 53 U/L (38-126); Anion Gap 10 mmol/L (4-12); Aspartate Amino Transferase 20 U/L (14-36); Bilirubin,Total 0.6 mg/dL (0.2-1.3); Blood Urea Nitrogen 13 mg/dL (7-17); Calcium 9.5 mg/dL (8.4-10.2); Carbon Dioxide 24 mmol/L (22-30); Chloride 105 mmol/L (98-107); Estimated CRCL calculation 148 ml/min; Estimated Glomerular Filt Rate > 60; Glucose 107 mg/dL (65-110); Potassium 4.4 mmol/L (3.4-5.0); Sodium 139 mmol/L (137-145)
[2024-08-18 07:05] VITALS: PULSE 72; RESP 18; O2SAT 99
[2024-08-18] MEDS: predniSONE 20 MG TABLET 40 MG PO (08:25)
[2024-08-18] MEDS: guaiFENesin 12 HR 600 MG TABCR PO (08:28)
[2024-08-18 09:00] VITALS: PULSE 88; RESP 18
--- NOTE | 2024-08-18 10:28 | P.DS_ITS ---
DS: Admitting Diagnosis Discharge Date 08/18/24 Admitting Diagnosis SOB DS: Discharge Diagnosis Discharge Diagnosis (1) Sepsis: Code(s): A41.9 - Sepsis, unspecified organism Status: Acute (2) Acute asthma exacerbation: Code(s): J45.901 - Unspecified asthma with (acute) exacerbation Status: Acute DS: Summary Hospital Course Hospital Course: 29 yo female with PMH of ASthma who presented to the ER on account of SOB and wheezing. She noted her symptoms started on Wednesday and has continued to worsen, associated with cough. Denies any fever, no vomiting, abd pain or diarrhea. 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 ER evaluation notable for HR 100, RR 24, BP 151/95, T 97.9; labs notable for WBC 18.8, Hb 11.1, Lactic acid 2.6, CXR showed atelectasis, however will treat as pneumonia since prior CXR showed no atelectasis and patient is septic. Patient was placed on IVF, and placed ROcephin and Azithromycin, Duonebs and Steroids. Patient noted marked symptoms improvement, on room air and eating okay. vital signs within normal limits. UCltures negative and patient ambulating freely. She was discharged today on 5 more days of Levaquin, Symbicort, patient will continue home Duoneb and Finish out 2 more days of remaining of her home Prednisone and follow up with PCP in 3-5 days. 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 above care Possible Pneumonia CXR showed right middle lobe atelectasis continue above care Time Spent with Patient Time attestation: Total time spent providing and/or coordinating discharge services: DS: Data Data Completed and Pending Labs on day of discharge: Labs from last 24 hours 08/18/24 08/17/24 08/17/24 06:00 20:09 16:18 WBC 26.9 H RBC 3.55 L Hgb 10.3 L Hct 30.9 L MCV 87.0 MCH 29.0 MCHC 33.3 RDW 15.3 H Plt Count 455 H MPV 9.7 Immature Gran % (Auto) 0.9 H Neut % (Auto) 84.7 H Lymph % (Auto) 8.3 L [place] % (Auto) 5.9 Eos % (Auto) 0.0 Baso % (Auto) 0.2 Lymph # (Auto) 2.23 [place] # (Auto) 1.6 H Eos # (Auto) 0.0 Baso # (Auto) 0.1 Abs Immat Gran (auto) 0.25 H Absolute Neuts (auto) 22.8 H Absolute Nucleated RBC 0.000 Nucleated RBC % 0.0 Sodium 139 Potassium 4.4 Chloride 105 Carbon Dioxide 24 Anion Gap 10 BUN 13 Creatinine 0.60 L Estim Creat Clear Calc 148 Estimated GFR > 60 Glucose 107 Lactic Acid 1.7 2.6 H 2.6 H Calcium 9.5 Total Bilirubin 0.6 AST 20 ALT 26 Alkaline Phosphatase 53 Total Protein 8.0 Albumin 4.3 Preliminary micro results at discharge 08/17/24 00:26 Blood Culture - Preliminary Blood 08/17/24 00:26 Blood Culture - Preliminary Blood Discharge Plan Discharge Attending physician on discharge: Roberto Serna Discharging Clinician: Roberto Serna Anticipated Discharge Date/Time: 08/18/24 10:10 Patient Disposition: Home, Self-Care Activity: as tolerated Diet: as tolerated Patient Instructions: Antibiotic Form Stand Alone Forms: General Discharge Information Follow-up/Referrals: Leo Christianson MD [Physician] - (F/u with PCP in 3-5 days ) Discharge Medications: New budesonide-formoterol [Breyna] 80-4.5 mcg/actuation HFA aerosol inhaler 2 puff inhalation Q12H Qty: 10.2 1RF levofloxacin 750 mg tablet 750 mg PO DAILY Qty: 5 0RF Continued albuterol sulfate 2.5 mg /3 mL (0.083 %) Solution For Nebulization 2.5 mg INHALATION Q4H PRN (Reason: Shortness Of Breath Or Wheezing) prednisone 50 mg tablet 50 mg PO DAILY Qty: 5 0RF benzonatate 100 mg capsule 100 mg PO TID Qty: 30 0RF albuterol sulfate 2.5 mg /3 mL (0.083 %) solution for nebulization 2.5 mg inhalation Q4H PRN (Reason: shortness of breath or wheezing) Qty: 75 0RF albuterol sulfate 90 mcg/actuation aerosol powdr breath activated 2 inhalation INHALATION Q4H PRN (Reason: shortness of breath or wheezing) Qty: 1 0RF albuterol sulfate 90 mcg/actuation HFA aerosol inhaler 1 inh inhalation QID PRN (Reason: shortness of breath or wheezing) Qty: 6.7 0RF prednisone 20 mg tablet 40 mg PO DAILY 5 Days Qty: 10 0RF Date of admission: 08/16/24 23:46 Primary Care Provider: UNKNOWN,DOCTOR Admitting Provider: Alyssa Ibrahim Attending physician on admission: Alyssa Ibrahim Condition: Stable
== END 2024-08-18 11:20 | disposition home or self-care (01) ==
LOC: ANHED 23:48 → ANH3MEDSUR 08-17 00:36
PROVIDERS: Admitting Provider Internal Medicine; Emergency Provider Emergency Medicine; Visit Provider Internal Medicine
DX: A41.9 Sepsis, unspecified organism (principal); J18.9 Pneumonia, unspecified organism; J45.901 Unspecified asthma with (acute) exacerbation; Z79.51 Long term (current) use of inhaled steroids; F17.290 Nicotine dependence, other tobacco product, uncomplicated; F12.90 Cannabis use, unspecified, uncomplicated; Z20.822 Contact with and (suspected) exposure to COVID-19
CPT/HCPCS: 36415; 71046; 80053; 81003; 83605; 83880; 84484; 85025; 87040; 87637; 93005; 94640; 96365; 96374; 96375; 96376; 99285; A9270; G0378; J0456; J0696; J2919; J7512

== ENCOUNTER 2025-03-05 09:11 | Emergency (ER) | payer OTHER, SELFPAY ==
[2025-03-05 09:20] VITALS: BP 119/72; PULSE 89; RESP 20; TEMP 36.7; O2SAT 100
--- OUTSIDE RECORDS SUMMARY | 2025-03-05 09:27 | XMS_ITS | Data Portability ---
Author Organization [facility] Address [address] [place] [address] Assessment Encounter Date Assessment Date Assessment LastModified by Organization Details LastModified Time 08/16/2023 08/16/2023 Annual gynecological exam performed. Patient will come back in a year unless there are new symptoms. [email or web address] Not available 08/16/2023 16:39:13 09/04/2024 09/04/2024 Annual gynecological exam performed. Patient will come back in a year unless there are new symptoms. Not available 09/04/2024 11:17:42 Plan of Treatment Reminders Order Date Submit Date Provider Last Modified By Organization Details Last Modified Time Details Appointments [facility] 2024 04:15P ANDRES Hernandez Not available Not available Not available Lab hbcab (hepatiti s B core Ab) igm, serum 2023 024 [facility] (Lab), [address], [place], [address], 09/05/2024 13:26:06 HBsAg (hepatiti s B surface Ag), serum 2023 024 [facility] (Lab), [address], [place], [address], 09/05/2024 13:26:06 hepatitis C virus Ab, serum 2023 024 [facility] (Lab), [address], [place], [address], 09/05/2024 13:26:05 HIV 1+2 AB + HIV 1 p24 Ag, qualitati ve immunoass ay, serum 2023 024 [facility] (Lab), [address], [place], [address], 09/05/2024 13:26:05 RPR (rapid plasma reagin), serum 2023 024 [facility] (Lab), [address], [place], [address], 09/05/2024 13:26:07 Referral pelvic floor therapy referral 2022 023 [email or web address] [facility], [address], [address], [place], [address], 12/09/2023 16:07:56 Procedures None recorded. Surgeries None recorded. Imaging None recorded. Medication Orders nystatin- triamcino lone 100,000 unit/gram -0.1 % topical ointment 2023 024 [id number], [address], [place], [place], [id number], 09/04/2024 11:21:19 Diflucan 150 mg tablet 2023 024 [id number], [address], [place], [place], [id number], 09/04/2024 11:20:57 Patient TargetsNo targets recorded. Patient InstructionsNo instructions recorded. Reason for Referral Pelvic Floor Therapy Referra l for Dyspareunia Referring Physician: Alison Becerra, MEDIA MONITOR, Encounter Date: 08/16/2023 Results Created Date Observation Date Name Description Value Unit Range Abnormal Flag Note LastModifiedBy Organization Detail LastModifiedTime 10/31/19 21 10/31/2020 US, obste tric, follo w-up interpretati on Not Available [facility] [address], [place], [address], 03/18/2020 15:15:31 11/13/19 21 11/13/2020 US, obste tric, 2nd or 3rd trime ster interpretati on Not Available [facility] [address], [place], [address], 02/19/2020 15:58:29 11/24/19 21 11/24/2020 US, doppl er, umbil ical arter y veloc imetr y md interpretati on Not Available [facility] [address], [place], [address], 06/27/2020 16:22:10 05/19/20 21 05/19/2021 IMAGE GUIDE D PAP, REFLE X HPV IF ASCUS ONLY image guided Pap, reflex HPV ASCUS only SEE RESULT S BELOW CASE REPOR T: Cytol ogy Gynec ologi yohana Repor t Case: [id number] Autho johnathon perez Provi amber: Aggie Noyola, CAROLINA Colle cted: 05/19 1607 Order ing Locat ion: [place] [facility] Recei jones: 05/20 0701 First Scree n: Radha Steward ret, CT Speci men: Scree julienne Pap - Image d, Cervi x STATE MENT OF ADEQU ACY: Satis facto ry for evalu ation Trans forma tion zone compo nent prese nt FINAL DIAGN OSIS: Negat delano for Intra epith elial Lesio n or Maty hayes (NIL) Shift in dasha sugge stive of bacte rial vagin osis Elect larisa muir christofer d by Radha Steward ret, CT on 2020 at 10:12 AM ----- ----- ----- ----- ----- ----- ----- ----- ----- ----- ----- ----- ----- ----- ----- ----- ----- ---- CHART ABLE COMME NT: Note: This speci men was revie wed by a Cytot echno logis t and/o r Patho logis t (as indic ated in this repor t) after evalu ation using the Thinp rep Imagi ng Syste m. CLINI YOHANA INFOR MATIO N: Menst rual Statu s: LMP (if appli cable ): 021 Clini yohana Histo ry/Pr eviou s Pap: Type of Neopl kiara (if appli cable ): Signi fican t Clini yohana Findi ngs: Other Histo ry: Hormo mckenna (if appli cable ): PAP EDUCA BILL L NOTE: The Pap Test is a scree julienne test with an inher ent false negat delano rate. Liqui d-bas e sampl ing may decre ase, but will not elimi tammy, false negat delano resul ts. A negat delano resul t does not precl ude the prese nce and/o r devel opmen t of disea se, since the prese nce of abnor mal cells in the sampl e depen ds on the locat ion of the lesio n and sampl ing techn ique. An nued regul ar scree julienne is the best metho d of cance r preve ntion . If repor nacho cytol ogic findi ng do not corre late with physi yohana and/o r histo rical findi ngs, furth er inves tigat ion is recom rosibel d, as clini nasim dewitt nted. Not Available [facility] (Lab) [address], [place], [address], 05/21/2021 11:15:42 05/19/2005/19/2021 TRICH OMONA S VAGIN ED (RRNA ) trichomonas vaginalis ribosomal RNA (rrna) Negati ve negati ve Not Available [facility] (Lab) [address], [place], [address], 05/21/2021 11:15:43 05/19/20 21 05/19/2021 CT/GC (JOSÉ MIGUEL) , THINP REP VIAL chlamydia trachomatis, PCR Negati ve negati ve Not Available [facility] (Lab) [address], [place], [address], 05/21/2021 11:15:43 05/19/20 21 05/19/2021 CT/GC (JOSÉ MIGUEL) , THINP REP VIAL neisseria gonorrhoeae, PCR Negati ve negati ve Not Available [facility] (Lab) [address], [place], [address], 05/21/2021 11:15:43 08/16/20 23 08/16/2023 IMAGE GUIDE D PAP, REFLE X HPV IF ASCUS ONLY image guided Pap, reflex HPV ASCUS only SEE RESULT S BELOW CASE REPOR T: Cytol ogy Gynec ologi yohana Repor t Case: [id number] Autho johnathon perez Provi amber: Alison Becerra, MARIAA Colle cted: 08/16 1647 Order ing Locat ion: [place] [facility] Recei jones: 08/17 1052 First Scree n: Valdemar Solorzano ed, CT Speci men: Scree julienne Pap - Image d, Cervi x STATE MENT OF ADEQU ACY: Satis facto ry for evalu ation Trans forma tion zone compo nent prese nt FINAL DIAGN OSIS: Negat delano for Intra epith elial Lesio n or Maty hayes (NIL) . Shift in dasha sugge stive of bacte rial vagin osis. Elect larisa beaulieu d by Valdemar Solorzano ed, CT on 08/19 at 12:08 AM ----- ----- ----- ----- ----- ----- ----- ----- ----- ----- ----- ----- ----- ----- ----- ----- ----- ---- COMME NT: This speci men was revie wed by a Cytot echno logis t and/o r Patho logis t (as indic ated in this repor t) after evalu ation using the Thinp rep Imagi ng Syste m. CLINI YOHANA INFOR MATIO N: Menst rual Statu s: LMP (if appli cable ): Clini yohana Histo ry/Pr eviou s Pap: Type of Neopl kiara (if appli cable ): Signi fican t Clini yohana Findi ngs: Other Histo ry: Hormo mckenna (if appli cable ): PAP EDUCA BILL L NOTE: The Pap Test is a scree julienne test with an inher ent false negat delano rate. Liqui d-bas ed sampl ing may decre ase, but will not elimi tammy, false negat delano resul ts. A negat delano resul t does not precl ude the prese nce and/o r devel opmen t of disea se, since the prese nce of abnor mal cells in the sampl e depen ds on the locat ion of the lesio n and sampl ing techn ique. An nued regul ar scree julienne is the best metho d of cance r preve ntion . If repor nacho cytol ogic findi ng do not corre late with physi yohana and/o r histo rical findi ngs, furth er inves tigat ion is recom rosibel d, as clini nasim dewitt nted. Not Available [facility] (Lab) [address] [place], [address], 08/19/2023 01:12:03 08/16/20 23 08/16/2023 CT/GC (JOSÉ MIGUEL) , THINP REP VIAL chlamydia trachomatis, PCR Negati ve negati ve Not Available [facility] (Lab) [address] [place], [address], 08/19/2023 01:12:04 08/16/20 23 08/16/2023 CT/GC (JOSÉ MIGUEL) , THINP REP VIAL neisseria gonorrhoeae, PCR Negati ve negati ve Not Available [facility] (Lab) [address] [place], [address], 08/19/2023 01:12:04 08/16/20 23 08/16/2023 TRICH OMONA S VAGIN ED (RRNA ) trichomonas vaginalis ribosomal RNA (rrna) Negati ve negati ve Not Available [facility] (Lab) [address], [place], [address], 08/19/2023 01:12:04 07/07/20 24 07/07/2024 WOMEN 'S HEALT H SWAB PLUS, MARIAH bacterial vaginosis (bv), tma Negati ve negati ve Not Available [facility] (Lab) [address], [place], [address], 07/08/2024 21:42:20 07/07/20 24 07/07/2024 WOMEN 'S HEALT H SWAB PLUS, MARIAH khloe species, tma Positi ve negati ve abnormal Not Available [facility] (Lab) [address], [place], [address], 07/08/2024 21:42:20 07/07/20 24 07/07/2024 WOMEN 'S HEALT H SWAB PLUS, MARIAH khloe glabrata, tma Negati ve negati ve Not Available [facility] (Lab) [address], [place], [address], 07/08/2024 21:42:20 07/07/20 24 07/07/2024 WOMEN 'S HEALT H SWAB PLUS, MARIAH trichomonas vaginalis, tma Negati ve negati ve Not Available [facility] (Lab) [address] [place], [address], 07/08/2024 21:42:20 07/07/20 24 07/07/2024 WOMEN 'S HEALT H SWAB PLUS, MARIAH chlamydia trachomatis, PCR Negati ve negati ve Not Available [facility] (Lab) [address] [place], [address], 07/08/2024 21:42:20 07/07/20 24 07/07/2024 WOMEN 'S HEALT H SWAB PLUS, MARIAH neisseria gonorrhoeae, PCR Negati ve negati ve Bacte rial vagin osis detec ts the follo wing bacte lloyd assoc iated with bacte rial vagin osis (BV): Lacto bacil milan (L. gasse ri, L. crisp atus and L. jense curt), Gardn erell a vagin ed, and Atopo bium vagin ae. A singl e quali tativ e resul t is repor nacho base on instr ument softw are to deter mine BV posit delano or negat delano statu s. The Laurita da speci es group tests for C. albic ans, C. tropi calis , C. parap keerthi is, C. dubli niens is. Testi ng is perfo rmed using the Trans cript ion Media nacho Ampli ficat ion metho d. Tests for Laurita da glabr joe, Trich omona s vagin ed, Chlam ydia trach omati s, and Neiss eria gonor rhoea e are also inclu ded in this panel . Not Available [facility] (Lab) [address], [place], [address], 07/08/2024 21:42:20 09/04/20 24 09/04/2024 HEPAT ITIS C ANTIB KATHARINA SCREE N, REFLE X TO CONFI RMATI ON hepatitis C antibody Non-re active non-re active Antib odies to HCV Not Detec nacho, does not exclu de the possi bilit y of expos ure to HCV. Not Available [facility] (Lab) [address] [place], [address], 09/05/2024 13:26:05 09/04/20 24 09/04/2024 HIV 1/2 ANTIG EN/AN TIBOD Y, REFLE X CONFI RMATI ON HIV antigen/anti body Nonrea ctive nonrea ctive HIV-1 antig en and HIV-1 /HIV- 2 antib odies were not detec nacho. No labor atory evide nce of HIV infec tion. Not Available [facility] (Lab) [address], [place], [address], 09/05/2024 13:26:05 09/04/20 24 09/04/2024 HEPAT ITIS B SURFA CE ANTIG EN hepatitis B surface antigen Non-re active non-re active This assay was perfo rmed using [employer] ratio n reage nts and test kits. Value s obtai nguyen with other assay metho ds or kits canno t be used inter alvarez eably . Not Available [facility] (Lab) [address], [place], [address], 09/05/2024 13:26:06 09/04/20 24 09/04/2024 HEPAT ITIS B CORE, IGM hepatitis B core IgM antibody Non-re active non-re active IgM anti- HBc not detec nacho. Does not exclu de the possi bilit y of expos ure to or infec tion with HBV. Not Available [facility] (Lab) [address], [place], [address], 09/05/2024 13:26:06 09/04/20 24 09/04/2024 RPR SCREE N, REFLE X TITER /CONF IRMAT ION RPR screen Nonrea ctive nonrea ctive Not Available [facility] (Lab) [address], [place], [address], 09/05/2024 13:26:06 09/04/20 24 09/04/2024 CT/GC AND TRICH OMONA S VAGIN ED (RRNA ), URINE chlamydia trachomatis, PCR Negati ve negati ve Not Available [facility] (Lab) [address] [place], [address], 09/05/2024 17:22:12 09/04/20 24 09/04/2024 CT/GC AND TRICH OMONA S VAGIN ED (RRNA ), URINE neisseria gonorrhoeae, PCR Negati ve negati ve Not Available [facility] (Lab) [address], [place], [address], 09/05/2024 17:22:12 09/04/20 24 09/04/2024 CT/GC AND TRICH OMONA S VAGIN DE (RRNA ), URINE trichomonas vaginalis ribosomal RNA (rrna) Negati ve negati ve Not Available [facility] (Lab) [address], [place], [address], 09/05/2024 17:22:12 Result Notes None recorded. Problems Name Problem SNOMED Code Status Onset Date Resolution Date Notes Provider Name and Address Organization Details Recorded Time Cystic fibrosis 819077657 Completed + positive FOB negative Neftali Mead [facility] 0 15:55:13 growth restrict ion [id number] Completed early onset - MFM - 05/31 appt and dopplers , All ante testing has been schedule d out to 07/12/20 per Fabiana. BG per [facility] uncompli cated IUGR elective mil 38-39wks Neftali Mead [facility] 0 15:55:13 Pregnanc y, childbir th and puerperi um finding Completed 201403/18/2021 Encounte r for supervis ion of normal first pregnanc y, third trimeste r;Record ed Elsewher e: No Locat ion: [facility] S ource: EHR Clinical Trials Specialist ahmet: N Practi ce ID: [id number] Vish lable Time: 02:30:00 PM Lurdes Mata [facility] 1 14:09:55 Primigra joe [id number] Completed 201403/18/2021 Supervis ion of normal first pregnanc y;Practi ce ID: 0001 Lurdes Mata [facility] 1 14:09:33 Ultrason ography Completed 201403/18/2021 Antenata l screenin g for malforma tion using ultrason ics;Kan rded Elsewher e: No Locat ion: [facility] S ource: EHR Clinical Trials Specialist ahmet: N Practi ce ID: 0001 Vish lable Time: 03:00:00 PM Lurdes carrasco, [facility] 14:09:36 Antenata l screenin g Completed 201403/18/2021 Antenata l screenin g for malforma tion using ultrason ics;Kan rded Elsewher e: No [facility] Clinical Trials Specialist ahmet: N Kristinati ce ID: 0001 Vish lable Time: 03:00:00 PM Lurdes carrasco, [facility] 1 14:09:45 Congenit al malforma tion [id number] Completed 201403/18/2021 Antenata l screenin g for malforma tion using ultrason ics;Kan rded Elsewher e: No Locat ion: [facility] S ource: EHR Clinical Trials Specialist ahmet: N Kristinati ce ID: 0001 Vish lable Time: 03:00:00 PM Lurdes carrasco, [facility] 14:09:[address] Concept Completed 201403/18/2021 Encounte r for surveill ance of other contrace ptives;R ecorded Elsewher e: No Locat ion: [facility] S ource: EHR Clinical Trials Specialist ahmet: N Kristinati ce ID: [id number] Vish lable Time: 03:00:00 PM Lurdes carrasco, [facility] 14:09:54 Pre-exis ting hyperten tico in obstetri c context [id number] Completed 201403/18/2021 Unsp pre-exis ting htn comp pregnanc y, third trimeste r;Record ed Elsewher e: No Locat ion: [facility] S ource: EHR Clinical Trials Specialist ahmet: N Kristinati ce ID: 0001 Vish lable Time: 02:00:00 PM Lurdes Mata [facility], [facility] 14:10:10 Gestatio n period, 37 weeks [id number] Completed 201403/18/2021 37 weeks gestatio n of pregnanc y;Record ed Elsewher e: No Locat ion: Elliott chaparro [facility] S ource: EHR Clinical Trials Specialist ahmet: N Practi ce ID: [id number] Vish lable Time: 02:00:00 PM Lurdes Mata null, [facility] 14:09:59 Gestatio n period, 32 weeks [id number] Completed 201403/18/2021 32 weeks gestatio n of pregnanc y;Record ed Elsewher e: No Locat ion: Elliott chaparro [facility] S ource: EHR Clinical Trials Specialist ahmet: N Kristinati ce ID: 0001 Vish lable Time: 02:00:00 PM Lurdes Mata null, [facility] 14:10:05 Gestatio n period, 36 weeks [id number] Completed 201403/18/2021 36 weeks gestatio n of pregnanc y;Record ed Elsewher e: No Locat ion: Elliott chaparro [facility] S ource: EHR Clinical Trials Specialist ahmet: N Practi ce ID: [id number] Vish lable Time: 02:00:00 PM Lurdes Mata null, [facility] 14:10:02 Gestatio n period, 35 weeks [id number] Completed 201403/18/2021 35 weeks gestatio n of pregnanc y;Record ed Elsewher e: No Locat ion: Elliott chaparro [facility] S ource: EHR Clinical Trials Specialist ahmet: N Practi ce ID: [id number] Vish lable Time: 02:30:00 PM Lurdes Mata null, [facility] 14:10:08 heart finding Completed 201403/18/2021 Abnlt in heart rate and rhythm comp labor and delivery ;Recorde d Elsewher e: No Locat ion: Elliott chaparro [facility] S ource: EHR Clinical Trials Specialist ahmet: N Practi ce ID: [id number] Vish lable Time: 03:00:00 PM Lurdes carrasco, [facility] 14:09:43 Gestatio n period, 34 weeks [id number] Completed 201403/18/2021 34 weeks gestatio n of pregnanc y;Record ed Elsewher e: No Locat ion: [facility]rystynajohn [facility] S ource: EHR Clinical Trials Specialist ahmet: N Practi ce ID: 0001 Vish lable Time: 02:00:00 PM Lurdes carrasco, [facility] 14:09:34 Gestatio n period, 9 weeks [id number] Completed 201903/18/2021 9 weeks gestatio n of pregnanc y;Record ed Elsewher e: No Locat ion: Elliott chaparro [facility] S ource: EHR Clinical Trials Specialist ahmet: N Practi ce ID: [id number] Vish lable Time: 02:30:00 PM Lurdes carrasco, [facility] 14:10:11 Normal pregnanc y in multigra joe [id number] Completed 201403/18/2021 Encounte r for supervis ion of other normal pregnanc y, third trimeste r;Record ed Elsewher e: No [facility] S ource: EHR Clinical Trials Specialist ahmet: N Practi ce ID: 0001 Vish lable Time: 02:30:00 PM Lurdes carrasco, [facility] 14:10:00 Gestatio n period, 33 weeks [id number] Completed 201403/18/2021 33 weeks gestatio n of pregnanc y;Practi ce ID: 0001 Lurdes carrasco, [facility] 14:10:07 anatomy study Completed 201403/18[facility];P ractice ID: 0001 Lurdes carrasco, [facility] 14:09:50 Vaginal abnormal ity complica ting antenata l care - baby not yet delivere d [id number] Completed 201403/18/2021 ABNORM VAGINA-A NTEPARTU M;Practi ce ID: 0001 Lurdes carrasco, [facility] 14:09:48 Prematur e rupture of membrane s with antenata l problem [id number] Completed 201403/18/2021 HAROLDO RUPT MEMB-ANT EPART;Pr actice ID: [id number] Lurdes carrasco, [facility] 14:09:41 Pregnanc y detectio n examinat ion Completed 201903/18/2021 Encounte r for pregnanc y test, result positive ;Recorde d Elsewher e: No Locat ion: [facility] S ource: EHR Clinical Trials Specialist ahmet: N Practi ce ID: 0001 Vish lable Time: 01:00:00 PM Lurdes carrasco [facility] 14:10:03 Pregnanc y test negative [id number] Completed 201403/18/2021 Encounte r for pregnanc y test, result negative ;Recorde d Elsewher e: No Locat ion: [facility] S ource: EHR Clinical Trials Specialist ahmet: N Practi ce ID: 0001 Vish lable Time: 01:00:00 PM Lurdes carrasco, [facility] 14:09:47 False labor at or after 37 complete d weeks of gestatio n [id number] Completed 201403/18/2021 False labor at or after 37 complete d weeks of gestatio n;Practi ce ID: 0001 Lurdes carrasco, [facility] 14:09:[address] Concept Completed 201903/18/2021 Encntr for template worker exam (general ) (routine ) w/o abn findings ;Recorde d Elsewher e: No Locat ion: [facility] S ource: EHR Clinical Trials Specialist ahmet: N Practi ce ID: [id number] Vish lable Time: 01:00:00 PM Lurdes carrasco, [facility] 1 14:09:53 Implanta tion of subcutan eous contrace ptive Completed 201403/18/2021 Insertio n of implanta ble subderma l contrace ptive;Re corded Elsewher e: No Locat ion: [facility] S ource: EHR Clinical Trials Specialist ahmet: N Practi ce ID: 0001 Vish lable Time: 03:00:00 PM Lurdes carrasco, [facility] 1 14:09:37 Term pregnanc y delivere d [id number] Completed 201403/18/2021 Encounte r for full-ter m uncompli cated delivery ;Practic e ID: 0001 Lurdes carrasco, [facility] 1 14:09:42 Single live from singleto n pregnanc y [id number] Completed 201403/18/2021 Single live ;Pr actice ID: [id number] Lurdes carrasco, [facility] 1 14:09:38 Lochia finding Completed 201403/18/2021 Encounte r for routine postpart um follow-u p;Practi ce ID: 0001 Lurdes carrasco, [facility] 1 14:09:57 Pregnanc y [id number] Completed 201908/15/2020 Danny Larose MD [address], [place], [address], [facility] 0 12:48:46 Problem Notes None recorded. Procedures Surgical History Date Name Laterality Status Provider Name and Address Organization Details Recorded Time 09/04/20 24 Date of Last Pap Smear completed Chayito Andres [facility] 09/04/2024 11:19:36 08/16/20 23 cholecystectomy completed Chayito Andres [facility] 08/16/2023 16:41:19 08/28/20 20 LAPAROSCOPIC TUBAL LIGATION WITH FULGURATION OF OVIDUCTS (SURG) completed Jonelle Leonidas [facility] 09/02/2020 13:00:05 Imaging Results None recorded. Procedure Notes None recorded. Medical Equipment None Reported. Allergies No known drug allergies Medications Name Sig Start Date Stop Date Status Note LastModified by Organization Details LastModified Time dicloxaci llin 500 mg capsule Take 1 capsule twice a day by oral route. 03/18 completed Not Available Not Available Not Available Pain Reliever Extra Strength (acetamin ophen) 500 mg tablet 08/15 completed Not Available Not Available Not Available albuterol sulfate 2.5 mg/3 mL (0.083 %) solution for nebulizat ion INHALE 2.5 MG (3 ML) EVERY 4 HOURS NEEDED FOR SHORTNES S OF BREATH OR FOR WHEEZE active Not Available Not Available No t Available azithromy julián 250 mg tablet 06/13 completed Not Available Not Available Not Available fluconazo le 150 mg tablet TAKE 1 TABLET BY MOUTH DIRECTED AND ANOTHER TABLET IN 48 HOURS 09/04 completed Not Available Not Available Not Available albuterol sulfate 1.25 mg/3 mL solution for nebulizat ion inhale 6 millilit er by inhalati on route 3- 4 times every day via nebulize r 03/18 completed Prescrib ed Elsewher e: Yes Loca tion: Elliott chaparro [facility] M odify By: [email or web address] trick En counter DateTime : 09/24/20 03:00:00 PM Not Available Not Available Not Available hydrocodo ne 5 mg-acetam inophen 325 mg tablet Take 1 tablet every 6 hours by oral route. 05/02 completed Not Available Not Available Not Available metronida zole 0.75 % (37.5 mg/5 gram) vaginal gel INSERT 1 APPLICAT ORFUL EVERY DAY VAGINALL Y FOR 5 DAYS 07/07 completed Not Available Not Available Not Available prednison e 20 mg tablet 08/15 completed Not Available Not Available Not Available nystatin- triamcino lone 100,000 unit/gram -0.1 % topical ointment APPLY TOPICALL Y TO THE AFFECTED AREA TWICE DAILY 09/04 completed Not Available Not Available Not Available Diflucan 100 mg tablet take 2 tablets the first day and then take 1 tablet by oral route every day for 10 days 09/23 completed Prescrib ed Elsewher e: No Locat ion: [facility] M odify By: [email or web address] trick En counter DateTime : 09/11/20 15 01:45:00 PM Not Available Not Available Not Available benzonata te 100 mg capsule TAKE 1 CAPSULE BY MOUTH THREE TIMES A DAY 09/04 completed Not Available Not Available Not Available prednison e 50 mg tablet TAKE 1 TABLET BY MOUTH EVERY DAY 09/04 completed Not Available Not Available Not Available promethaz ine 25 mg tablet Take 1 tablet every 4 hours by oral route. 05/14 completed Not Available Not Available Not Available sertralin e 25 mg tablet TAKE 1 TABLET BY MOUTH EVERY DAY 07/07 completed Not Available Not Available Not Available levofloxa julián 750 mg tablet TAKE 1 TABLET BY MOUTH EVERY DAY 09/04 completed Not Available Not Available Not Available albuterol sulfate HFA 90 mcg/actua tion aerosol inhaler USE 1 PUFF INHALED FOUR TIMES DAILY NEEDED FOR SHORTNES S OF BREATH OR WHEEZING active Not Available Not Available No t Available Vitamin D2 1,250 mcg (50,000 unit) capsule take 1 capsule by oral route every week 09/23 completed Prescrib ed Elsewher e: No Locat ion: [facility] M odify By: [email or web address] trick En counter DateTime : 03/14/20 15 09:04:06 AM Not Available Not Available Not Available ondansetr on 4 mg disintegr ating tablet DISSOLVE 1 TABLET IN MOUTH EVERY 8 HOURS 08/16 completed Not Available Not Available Not Available sertralin e 50 mg tablet take 1 tablet by oral route every day 05/14 completed Not Available Not Available Not Available oxycodone 5 mg tablet TAKE 1 TABLET BY MOUTH EVERY 6 HOURS NEEDED FOR PAIN 08/16 completed Not Available Not Available Not Available Poly-Iron 150 mg iron capsule 05/02 completed Not Available Not Available Not Available Zithromax 500 mg tablet take 2 tablet by oral route once 09/23 completed Prescrib ed Elsewher e: No Locat ion: [facility] odify By: [email or web address] trick En counter DateTime : 05/22/20 03:30:00 PM Not Available Not Available Not Available cyclobenz aprine 5 mg tablet TAKE 2 TABLETS BY MOUTH THREE TIMES A DAY NEEDED FOR MUSCLE SPASM 08/16 completed Not Available Not Available Not Available 05/19 completed Not Available Not Available Not Available budesonid e-formote rol HFA 80 mcg-4.5 mcg/actua tion aerosol inhaler INHALE 2 PUFFS EVERY 12 HOURS active Not Available Not Available No t Available Nexplanon 68 mg subdermal implant 12/05 completed Prescrib ed Elsewher e: Yes Loca tion: [facility] odify By: [email or web address] z Encoun ter DateTime : 09/24/20 03:00:00 PM Not Available Not Available Not Available Diclegis 10 mg-10 mg tablet,de layed release take 1 tablet by oral route every day in the morning, 1 tablet in the mid-afte rnoon, and 2 tablets at bedtime 09/23 completed Prescrib ed Elsewher e: No Locat ion: [facility] odify By: [email or web address] trick En counter DateTime : 02/09/20 03:00:00 PM Not Available Not Available Not Available ProAir RespiClic k 90 mcg/actua tion breath activated 08/15 completed Not Available Not Available Not Available One Daily 27 mg iron-800 mcg tablet take 1 tablet by oral route every day 03/18 completed Prescrib ed Elsewher e: Yes Loca tion: [facility] odify By: [email or web address] trick En counter DateTime : 09/24/20 15 03:00:00 PM Not Available Not Available Not Available Vitals Date Recorded Body height Body mass index (BMI) Body weight Systolic blood pressure Diastolic blood pressure Provider Name and Address Organization Details Last Updated DateTime 05/19/2021 172.72 cm 31.5 kg/m2 48393.62 g 126 mm[Hg] 80 mm[Hg] Lurdes Mata [facility] 1 15:12:26 Date Recorded Body height Body mass index (BMI) Body weight Systolic blood pressure Diastolic blood pressure Provider Name and Address Organization Details Last Updated DateTime 07/07/2024 172.72 cm 30.3 kg/m2 61198.88 g 146 mm[Hg] 76 mm[Hg] Chayito Andres [facility] 4 15:12:36 Date Recorded Body height Body mass index (BMI) Body weight Systolic blood pressure Diastolic blood pressure Provider Name and Address Organization Details Last Updated DateTime 08/16/2023 172.72 cm 26.2 kg/m2 17786.89 g 136 mm[Hg] 85 mm[Hg] Chayito Andres [facility] 3 16:39:29 Date Recorded Body height Body mass index (BMI) Body weight Systolic blood pressure Diastolic blood pressure Provider Name and Address Organization Details Last Updated DateTime 09/04/2024 172.72 cm 31.9 kg/m2 61285.4 g 129 mm[Hg] 83 mm[Hg] Chayito Andres [facility] 4 11:18:19 Date Recorded Body height Body mass index (BMI) Body weight Systolic blood pressure Diastolic blood pressure Provider Name and Address Organization Details Last Updated DateTime 09/05/2020 172.72 cm 32.8 kg/m2 73748.95 g 123 mm[Hg] 81 mm[Hg] Charisma Matta [facility] 0 15:08:58 Social History Question Answer Notes LastModified by Organizat ion Details LastModified Time Tobacco Smoking Status Current Every Day Smoker Chayito carrasco [facility] 08/16/2023 16:40:02 Are You Blind Or Do You Have Difficulty Seeing? No [email or web address] Information n ot available 08/16/2023 What Is Your Level Of Caffeine Consumption? Moderate Information not available 08/16/2023 In The 14 Days Before Symptom Onset, Have You Had Close Contact With A Laboratory-confirm ed COVID-19 While That Case Was Ill? No [email or web address] Information n ot available 08/16/2023 In The 14 Days Before Symptom Onset, Have You Had Close Contact With A Person Who Is Under Investigation For COVID-19 While That Person Was Ill? No [email or web address] Information not available 08/16/2023 Have You Been To An Area Known To Be High Risk For COVID-19? No Information not available 08/16/2023 Are You Deaf Or Do You Have Serious Difficulty Hearing? No [email or web address] Information not available 08/16/2023 What Type Of Diet Are You Following? REGULAR Information n ot available 08/16/2023 What Is The Highest Grade Or Level Of School You Have Completed Or The Highest Degree You Have Received? [id number] [email or web address] Information not available 08/16/2023 Are There Any Guns Present In Your Home? Yes [email or web address] Information not available 08/16/2023 What Was The Date Of Your Most Recent Tobacco Screening? 09/04/2024 Information not available 09/04/2024 Do You Use Protection During Sex? No [email or web address] Information not available 08/16/2023 Do You Use Your Seat Belt Or Car Seat Routinely? Yes [email or web address] Information not available 08/16/2023 Do You Have Smoke And Carbon Monoxide Detectors In Your Home? Yes [email or web address] Information not available 08/16/2023 How Much Tobacco Do You Smoke? No [email or web address] Information not available 05/30/2020 Do You Use Sunscreen Routinely? No [email or web address] Information not available 08/16/2023 Have You Used IV Drugs? No [email or web address] Information not available 08/16/2023 Do You Have Difficulty Walking Or Climbing Stairs? No Information not available 07/07/2024 Sex: Unknown Functional Status Question Answer Note LastModified by Organizat ion Details LastModified Time Do you use any illicit or recreational drugs? Yes [email or web address] Information not available 08/16/2023 What is your level of alcohol consumption? Occasional [email or web address] Information not available 05/30/2020 Do you or have you ever used smokeless tobacco? Never used smokeless tobacco [email or web address] Information not available 08/16/2023 Are you able to walk? YESWOREST [email or web address] Information not available 08/16/2023 Are you able to care for yourself? 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 No [email or web address] Information not available 07/07/2024 Do you or have you ever used e-cigarettes or vape? Never used electronic cigarettes [email or web address] Information not available 08/16/2023 What is your exercise level? Occasional [email or web address] Information not available 05/30/2020 Mental Status Question Answer Note LastModified by Organization D etails LastModified Time Do you feel stressed (tense, restless, nervous, or anxious, or unable to sleep at night)? [id number] [email or web address] Information not available 08/16/2023 Family History Relationship Description Onset Age of this Age Resolved Age Notes LastModified by Organization Details LastModified Time Father Asthma [email or web address] Not available 14:04:42 Father Hypercholest erolemia [email or web address] Not available 2019 14:10:26 Father Hypertensive disorder [email or web address] Not available 2019 14:10:38 Father Heart disease [email or web address] Not available 2019 14:10:53 Mother Cyst of ovary [email or web address] Not available 2023 10:46:41 Mother Blood coagulation disorder [email or web address] Not available 2019 14:09:31 Mother Seizure disorder [email or web address] Not available 2023 10:46:41 Mother Polycystic ovary syndrome [email or web address] Not available 2023 10:46:41 Mother Uterine prolapse [email or web address] Not available 2023 10:46:41 Paternal Grandfather Hypertensive disorder [email or web address] Not available 2019 14:11:05 Brother Heart disease [email or web address] Not available 2019 14:11:13 Maternal Uncle Mental disorder [email or web address] Not available 2019 14:11:24 Medical History Condition Response Allergies (Food, seasonal, environmental ) Y Other Y Breast Cancer N Drug/Latex Allergies/Reactions N Blood Transfusion N Dermatologic Disorders N Lung Disease N Defects or Inherited Disease N Breast Problem N Gestational Diabetes N Hematologic disorders N Anesthesia Complications N History of STI Y Deep Vein Thrombosis N Polycystic ovary syndrome N Anxiety Disorder Y Autoimmune disease N Arthritis N Infertility N Polyps N Acid Reflux (GERD) N History of abnormal pap N Cancer N Stroke N Varicosities N Neurologic/Epilepsy N Endometriosis N High Cholesterol N Headaches N Fibromyalgia N Kidney Disease N Heart Problems N Kidney or Bladder Problems N Thyroid Problems N GI Problems N Eating Disorder N Anemia N Art (IVF or FET) N Psychiatric Illness N Ovarian Cancer N Diabetes N Pulmonary (TB, Asthma) N Hepatitis/Liver Disease N No Past Medical History N Eczema N Urinary Tract Infection N Abuse/Domestic Violence N Asthma Y Trauma/Violence N Depression/ depression Y Heart Disease N Pre-Eclampsia N Hypertension Y Osteoporosis N Thrombophilias N Gynecological History Statement/Question Response Date of Last Mammogram Date of LMP 08/18/2024 On BCP's at Conception? Y N Was last menstrual period normal Y STIs/STDs Y HPV Vaccine N Duration of Flow (days) 5 Current Control Method Tubal Ligat ion Age at First Child 20 Date of Last Colonoscopy Frequency of Cycle (Q days) 30 Sexually Active? Y Date of DEXA bone scan Age of first menstrual cycle 13 Date of Last Pap Smear 09/04/2024 Sexual Problems? N LMP Definite N Obstetrics History GPAL:G 2 P 2 0 0 2 Type Value Full Term 2 Living 2 Total 2 Past Encounters Encounter ID Performer Location Encounter Start Date Encounter Closed Date Diagnosis/Indication Diagnosis SNOMED-CT Code Diagnosis ICD10 Code Diagnosis Note [id number] MD Merlin Stafford [address] [address] 01/29/2020 13:47:07 01/30/2020 13:29:59 Routine care 017331667 Z34.92 Nausea and vomiting 1693 1999 R11.2 [id number] MD Merlin Stafford [address],[place] [address] 02/19/2020 15:03:56 02/19/2020 16:04:06 screening for malformation 103401131 Z36.3 [id number] Aggie Putnam [facility] [address],[place] [address] 02/19/2020 15:24:37 02/19/2020 16:41:28 Routine care 323123638 Z34.92 [id number] Aggie Putnam [facility] [address],[place] [address] 03/18/2020 14:10:33 03/18/2020 17:36:13 Routine care 971279846 Z34.92 [id number] Danny Larose MD [place] [address],[place] [address] 03/18/2020 14:13:36 03/18/2020 17:37:47 screening 440263283 Z36.2 [id number] Aggie Putnam [address] [address] 04/16/2020 12:57:34 06/18/2020 14:21:04 Routine care 854395145 Z34.92 [id number] Aggie Putnam [address] [address] 04/30/2020 11:44:28 04/30/2020 12:21:20 Routine care 066896959 Z34.92 [id number] Aggie Putnam [address] [address] 05/14/2020 11:08:44 05/14/2020 12:00:00 Routine care 633707580 Z34.92 [id number] Melina George [facility] [address],[place] [address] 05/30/2020 12:40:56 06/02/2020 12:37:39 Routine care 250459173 Z34.93 [id number] Aggie Putnam [facility] [address],[place] [address] 06/13/2020 15:50:39 06/13/2020 17:57:28 Routine care 859078211 Z34.92 [id number] [facility] [address],[place] [address] 06/20/2020 16:19:45 06/21/2020 10:53:52 Routine care 146071482 Z34.92 [id number] Danny Larose MD [place] [address],[place] [address] 06/27/2020 15:11:38 06/27/2020 17:35:36 Small for gestational age fetus 033318486 O36.5930 [id number] Danny Larose MD [place] [address],[place] [address] 06/27/2020 15:12:36 06/27/2020 17:39:11 Poor growth affecting management 711018847 O36.5930 Z3A.37 [id number] Aggie Putnam [facility] [address],[place] [address] 06/27/2020 15:13:01 06/28/2020 17:24:10 Routine care 391513197 Z34.92 [id number] Aggie Putnam [facility] [address],[place] [address] 07/03/2020 12:11:28 07/03/2020 15:48:41 Routine care 104895615 Z34.92 [id number] Danny Larose MD [place] [address],[place] [address] 07/22/2020 09:54:06 07/22/2020 10:57:30 Female sterilization 88563942 Z30.2 This patient is a 25-year-ol d female presents for follow-up on - induced hypertensi on. She was noted to have elevated blood pressures in the hospital her. She is likely delivered for that. Her blood pressure is a normal today. She has taken them at home and they have been normal there to. She denies any headache, blurry vision, epigastric pain she expresses desire to have tubal ligation. We will schedule that. She will sign the consent today. real estate legal assistant will get the consent signed with the patient for laparoscop ic bilateral tubal ligation. patient understand s the risks, benefits, and alternativ es. - induced hypertension 83056567 O13.9 [id number] Danny Larose MD [place] [address],[place] [address] 08/15/2020 12:11:44 08/15/2020 13:09:57 Female sterilization 04486939 Z30.2 To proceed with laparoscop ic bilateral tubal ligation. She understand s the risk, benefit, and alternativ es. [id number] Danny Larose MD [place] [address],[place] [address] 08/28/2020 14:21:16 08/28/2020 14:22:21 [id number] Danny Larose MD [place] [address],[place] [address] 09/05/2020 14:59:36 09/05/2020 15:23:27 Postoperative care 410539968 Z48.89 .bThis patient is a 43-year-ol d female who presents forpostopf ollow-up. She is 1 weekpostop from a laparoscop ic bilateral tubal ligation. Her incisions are clean dry and intact. She has no complaints . She is recovering normally. She will follow up as needed. [id number] Aggie Putnam CNM [facility] [address],[place] [address] 05/19/2021 15:06:39 05/19/2021 15:24:32 Gynecologic examination 62577198 Z01.419 Z11.3 Z11.8 Take Calcium with Vitamin D 1200mg daily if not receiving in daily diet. It is strongly advised to have an annual flu shot and up can obtain at most pharmacies . If you have not had a TDap shot in the last 10 years you should obtain one as well. Discussed with patient & provided with informatio n regarding Gardisil vaccine to prevent the 4 strains for HPV that cause cervical cancer if under age 26. Encourage safe sexual practices, to use condoms and limit partners if not already in a monogamous relationsh ip. Do monthly self breast exams. Have mammogram yearly or every other year depending on family history. BRCA testing is now available for patients with strong genetic history of female cancer. If interested contact the office. Engage in daily exercise of low impact aerobic exercise 45-60 minutes 4-5 times weekly. Avoid tobacco and illicit drugs as well as using moderation with alcohol intake less than 1-2 8 oz beverages daily. This lifestyle behavior pattern will lead to less health conditions and longer life span. If BMI greater than 25 weight watchers or dietary consult advised. Patient received above instructio ns, and questions have been answered. If you have any questions please call or respond to this email. Patient was made aware of the patient portal and may obtain a paper copy of today's plan if desired. [id number] ANDRES Paredes [place] [address] [address] 08/16/2023 16:31:14 08/17/2023 09:48:01 Gynecologic examination 49447450 Z01.419 WWEBC - BTLpap updatedgc/ ct/trich testing added to papblood STI panel declinedUT D with PCP for routine labsRTC in 1 yr or sooner if needed Take Calcium with Vitamin D daily if not receiving in daily diet. It is strongly advised to have an annual flu shot and up can obtain at most pharmacies . If you have not had a TDap shot in the last 10 years you should obtain one as well. Discussed with patient & provided with informatio n regarding Gardisil vaccine to prevent the 4 strains for HPV that cause cervical cancer if under age 26. Encourage safe sexual practices, to use condoms and limit partners if not already in a monogamous relationsh ip.Do monthly self breast exams. Engage in daily exercise of low impact aerobic exercise 45-60 minutes 4-5 times weekly. Avoid tobacco and illicit drugs as well as using moderation with alcohol intake less than 1-2 8 oz beverages daily. This lifestyle behavior pattern will lead to less health conditions and longer life span. If BMI greater than 25 weight watchers or dietary consult advised. Patient received above instructio ns, and questions have been answered. If you have any questions please call or respond to this email. Patient was made aware of the patient portal and may obtain a paper copy of today's plan if desired. Venereal d isease screening 273965336 Z11.3 Dyspareunia 88504375 N94 .10 recommende d trial of PFPTreferr al sentRTC for f/u after completion [id number] ANDRES Paredes [place] [address] [address] 09/04/2024 10:46:33 09/04/2024 11:37:07 Gynecologic examination 56609376 Z11.3 [facility], due next screen - gc/ct/tric h urine testing sent, HIV/Hep B&C/Syphil is testing ordered per pt requestRou damaris labs - PCPRTC in 1 yr or sooner if needed It is strongly advised to have an annual flu shot and up can obtain at most pharmacies . If you have not had a TDap shot in the last 10 years you should obtain one as well. Discussed with patient & provided with informatio n regarding the HPV vaccine if applicable . Encourage safe sexual practices, to use condoms and limit partners if not already in a monogamous relationsh ip. Do monthly self breast exams. BRCA testing is now available for patients with strong genetic history of female cancer. If interested contact the office. Engage in regular exercise. Avoid tobacco and illicit drugs. This lifestyle behavior pattern will lead to less health conditions and longer life span. If BMI greater than 25 dietary consult advised. Questions answered. Venereal d isease screening 188683819 Z11.3 Sexually t ransmitted infectious disease 8184693 A64 [id number] Danny Larose MD [place] [address],[facility] [place] [address] 07/07/2024 14:44:07 07/07/2024 15:35:49 Candidiasis of vagina 55663471 B37.31 take meds as directed f/u wweDiscuss ed that patient may apply cool compress to affected area as needed to reduce swelling and pain. Venereal d isease screening 958722467 Z11.3 Pt requested STI testing as well.Discu ssed the various types of STDs, related symptoms and the potential consequenc es (including effects on fertility) of STD infections . Reviewed ways to limit exposure and prevention techniques . Health Concerns Section Related Observation LastModified by Organization Detai ls LastModified Time None Recorded Concern Status LastModified by Organization Details LastModified Time None Recorded Advance Directives Directive None Recorded Payers Encounter Date Sequence Insurance Name Policy Number Policy Johnson Covered Member ID Johnson Member ID Guarantor Name 09/05/2020 1 [facility] [id number] Daniel Munoz [id number] Sandhya Munoz 05/19/2021 1 [facility] [id number] Daniel Munoz [id number] Sandhya Munoz 08/16/2023 1 [facility] (MEDICAID HMO) [id number] Sandhya Munoz [id number] Sandhya Munoz 07/07/2024 1 [facility] - MONICA Munoz [id number] Sandhya Munoz 09/04/2024 1 [facility] - MONICA Munoz [id number] Sandhya Munoz Notes Date Note Type Note Provider Name and Address Organization Details Recorded Time 09/05/2020 text/html This patient is a 43-year-old female who presents for postop follow-up. She is 1 week postop from a laparoscopic bilateral tubal ligation. Her incisions are clean dry and intact. She has no complaints. She is recovering normally. She will follow up as needed. Danny Larose MD [address], [place], [address], [facility] 09/05/2020 15:23:26 05/19/2021 text/html Annual GYNReport ed bypatient.Menstrua l cycle:Normal menses Urinary symptoms:No hematuria; No incontinence Vulva:No genital lesion Vagina:Normal vaginal discharge Breast:No breast pain; No breast lump; No nipple discharge Sexual complaints:No sexual complaints; No pain during intercourse; Normal libido Menopausal Symptoms:No menopausal symptoms; Normal vaginal lubrication Psychological symptoms:No depression; No anxiety; No PMDD Aggie carrasco [facility] 05/19/2021 15:24:07 08/16/2023 text/html Annual GYNReport ed bypatient.Menstrua l cycle:Normal menses Urinary symptoms:No hematuria; No incontinence Vulva:No genital lesion Vagina:Normal vaginal discharge Breast:No breast pain; No breast lump; No nipple discharge Current Contraception:Sati sfied with current contraception; Tubal ligation Sexual complaints:No sexual complaints; Normal libido;Pain during intercourse; feels like pelvic floor muscles are tightening/contrac ting during IC causing pain Menopausal Symptoms:No menopausal symptoms; Normal vaginal lubrication Psychological symptoms:No depression; No anxiety; No PMDD Preventive measures:Encourage self breast examination; Encourage regular exercise; Encourage no tobacco use; Encourage regular mammograms starting age 42Notes:last pap 05/2021 - normal ANDRES Paredes [address], [place], [address], [facility] 08/17/2023 09:39:11 07/07/2024 text/html Patient recently used new lubricant (silicone based), usually do water-based and reports vaginal irritation, white discharge, and vulvar swelling. Patient states that it is painful to walk and urinate. due to the swelling. Patient visited urgent care yesterday and was prescribed Monistat topically, but patient denies any relief of symptoms. Requests STI testing today. ANISH VERA NP [address], [place], [address], [facility] 07/07/2024 15:51:39 09/04/2024 text/html Annual GYNReport ed bypatient.Menstrua l cycle:Normal menses Urinary symptoms:No hematuria; No incontinence Vulva:No genital lesion Vagina:Normal vaginal discharge Breast:No breast pain; No breast lump; No nipple discharge Current Contraception:Sati sfied with current contraception; Tubal ligation Sexual complaints:No sexual complaints; No pain during intercourse; Normal libido Menopausal Symptoms:No menopausal symptoms; Normal vaginal lubrication Psychological symptoms:No depression; No anxiety; No PMDD Preventive measures:Encourage self breast examination; Encourage regular exercise; Encourage no tobacco use; Encourage regular mammograms starting age 42Notes:29yo wweBC - BTLno h/o abnormal papslast pap 08/2023 : ANDRES Srivastava [address], [place], [address], [place] [facility] 09/04/2024 11:36:48 OBGyn Episode Ob Episode Information Episode Created Date Number of Fetuses Patient Bloodtype Patient rh Status Prepregnancy Weight lbs Domestic Partner Domestic Partner Phone Father Name Review Consultant Status 01/29/20 20 1 CLOSED Fetus Data First Name Last Name Admitted to NICU Weight (g) Sex Living Outcome Pediatric Complications Fetus ID Race Codes Race Delivery Type 2608.15 4 M Full Term 853 Vaginal Delivery Joseph Calculation Initial Joseph Date Initial Exam Date Initial Exam Provider Initial Ultrasound Date Last Menstrual Period Date Ultra Sound Weeks Gestation 0 Eighteen To Twenty Week Joseph Update Ultra Sound Date Fundal Height At Umbil Quickening Date Ultra Sound Latest Weeks Gestation Final Joseph Confirmed By Final Joseph Confirmed Date Final Joseph Date Ultra Sound Latest Days Gestation 0 0 Menstrual History Last Menstrual Date Menses Monthly On Bcp Conception Prior Menses Frequency Hcg Plus Date Menarche Onset Age Delivery Information Delivery Date Delivery Type Labor Anesthesia Weeks Gestation Incision Type Labor Labor Length Hrs Delivered By Post Complications Tubal Sterilization Discharge Date Comments 5 38.1 CHTN Discharge Information Feeding Method Contraceptive Method Maternal HG B and HCT Levels Ob Episode Information Episode Created Date Number of Fetuses Patient Bloodtype Patient rh Status Prepregnancy Weight lbs Domestic Partner Domestic Partner Phone Father Name Review Consultant Status 01/29/20 20 1 A Negative 214 CLOSED Fetus Data First Name Last Name Admitted to NICU Weight (g) Sex Living Outcome Pediatric Complications Fetus ID Race Codes Race Delivery Type 2948.34 8 F true Full Term early onset growth restriction 854 Vaginal Delivery Problems Problem Notes Pt request to schedule all d opplers, NST's & ultrasounds with MFM Problem Name Start Date End Date Resolution Snomed Code Not e Cystic fibrosis 549081374 + po sitive FOB negative growth restriction 86433160 early onset - M FM - 05/31 appt and dopplers, All ante testing has been scheduled out to 07/12/20 per Fabiana. BG per [facility] uncomplicated IUGR elective mil 38-39wks Joseph Calculation Initial Joseph Date Initial Exam Date Initial Exam Provider Initial Ultrasound Date Last Menstrual Period Date Ultra Sound Weeks Gestation 07/15/2020 01/29/2020 12/11/2019 10/06/2019 9 Eighteen To Twenty Week Joseph Update Ultra Sound Date Fundal Height At Umbil Quickening Date Ultra Sound Latest Weeks Gestation Final Joseph Confirmed By Final Joseph Confirmed Date Final Joseph Date Ultra Sound Latest Days Gestation 01/01/20 20 12 kpanyik 02/19/2020 07/12/20 20 1 Pre- Flowsheet Flowsheet Date 01/29/2020 Richardson Score Blood Edema Fundus Height Fundus Units Glucose Ketones Leukocytes Nitrite Labor Signs Protein Cervic Dilation Cervic Effacement Cervic Station 16 trace Type Weight in lbs Pre/Post Dialysis Refused Weight 216.269743245145 BP Diastolic BP Location Tested BP Systolic BP Type 79 139 Fetus Heart Rate Present A 150 Fetus Movement Comments Flowsheet Date 02/19/2020 Richardson Score Blood Edema Fundus Height Fundus Units Glucose Ketones Leukocytes Nitrite Labor Signs Protein Cervic Dilation Cervic Effacement Cervic Station Type Weight in lbs Pre/Post Dialysis Refused BP Diastolic BP Location Tested BP Systolic BP Type Fetus Heart Rate Present Fetus Movement Comments Flowsheet Date 02/19/2020 Richardson Score Blood Edema Fundus Height Fundus Units Glucose Ketones Leukocytes Nitrite Labor Signs Protein Cervic Dilation Cervic Effacement Cervic Station 20 trace Type Weight in lbs Pre/Post Dialysis Refused Weight 227.210862223735 BP Diastolic BP Location Tested BP Systolic BP Type 82 138 sitting Fetus Heart Rate Present A 153 Fetus Movement A Yes Comments Incomplete baseline. Will sc hedule f/u in 4 weeks. Pt is planning pp tubal ligation. Discussed risk vs benefit and that it is not reversible. Pt verbalized understanding. Will discuss again and sign the consent at 28 weeks. Flowsheet Date 03/18/2020 Richardson Score Blood Edema Fundus Height Fundus Units Glucose Ketones Leukocytes Nitrite Labor Signs Protein Cervic Dilation Cervic Effacement Cervic Station Type Weight in lbs Pre/Post Dialysis Refused BP Diastolic BP Location Tested BP Systolic BP Type Fetus Heart Rate Present Fetus Movement Comments Flowsheet Date 03/18/2020 Richardson Score Blood Edema Fundus Height Fundus Units Glucose Ketones Leukocytes Nitrite Labor Signs Protein Cervic Dilation Cervic Effacement Cervic Station 23 trace Type Weight in lbs Pre/Post Dialysis Refused Weight 224.642714801789 BP Diastolic BP Location Tested BP Systolic BP Type 82 L arm 127 sitting Fetus Heart Rate Present A 141 Fetus Movement A Yes Comments Will await review of u/s by Dr Larose. Flowsheet Date 04/16/2020 Richardson Score Blood Edema Fundus Height Fundus Units Glucose Ketones Leukocytes Nitrite Labor Signs Protein Cervic Dilation Cervic Effacement Cervic Station 29 trace Type Weight in lbs Pre/Post Dialysis Refused Weight 231.263351692869 BP Diastolic BP Location Tested BP Systolic BP Type 72 116 Fetus Heart Rate Present A 137 Fetus Movement A Yes Comments 1 hour gtt yesterday. Flowsheet Date 04/30/2020 Richardson Score Blood Edema Fundus Height Fundus Units Glucose Ketones Leukocytes Nitrite Labor Signs Protein Cervic Dilation Cervic Effacement Cervic Station 30 trace Type Weight in lbs Pre/Post Dialysis Refused Weight 235.807621013641 BP Diastolic BP Location Tested BP Systolic BP Type 78 128 Fetus Heart Rate Present A 148 Fetus Movement A Yes Comments Pt think she might have a li ttle decrease in movement. Sent to [facility] for NST. Instructed to do kick counts twice daily and if ever less than 10 kicks in 1 hour she will need evaluation marjorie. Pt verbalized understanding. Flowsheet Date 05/14/2020 Richardson Score Blood Edema Fundus Height Fundus Units Glucose Ketones Leukocytes Nitrite Labor Signs Protein Cervic Dilation Cervic Effacement Cervic Station neg none 31 trace Type Weight in lbs Pre/Post Dialysis Refused Weight 233.131418849816 BP Diastolic BP Location Tested BP Systolic BP Type 68 112 Fetus Heart Rate Present A 137 Fetus Movement A Yes Comments Pt doing well. Has testing scheduled. Encouraged kick counts. Flowsheet Date 05/30/2020 Richardson Score Blood Edema Fundus Height Fundus Units Glucose Ketones Leukocytes Nitrite Labor Signs Protein Cervic Dilation Cervic Effacement Cervic Station neg trace 35 trace Type Weight in lbs Pre/Post Dialysis Refused Weight 235.679281841074 BP Diastolic BP Location Tested BP Systolic BP Type 79 144 Fetus Heart Rate Present A 150 Fetus Movement A Yes Comments patient is having pain, cont ractions, mucus discharge and swelling, rpt bp same, to LD for evaluation Flowsheet Date 06/13/2020 Richardson Score Blood Edema Fundus Height Fundus Units Glucose Ketones Leukocytes Nitrite Labor Signs Protein Cervic Dilation Cervic Effacement Cervic Station 36 trace 1cm Type Weight in lbs Pre/Post Dialysis Refused Weight 240.474785405865 BP Diastolic BP Location Tested BP Systolic BP Type 79 R arm 126 sitting Fetus Heart Rate Present A 140 Fetus Movement A Yes Comments Pt continues to be followed by mfm. She states the plan is to go to 39 weeks. Pt doing well. Labor precautions. Flowsheet Date 06/20/2020 Richardson Score Blood Edema Fundus Height Fundus Units Glucose Ketones Leukocytes Nitrite Labor Signs Protein Cervic Dilation Cervic Effacement Cervic Station 37 trace 1cm Type Weight in lbs Pre/Post Dialysis Refused Weight 240.363045797852 BP Diastolic BP Location Tested BP Systolic BP Type 88 L arm 130 sitting Fetus Heart Rate Present A 142 Fetus Movement A Yes Comments Generalized discom fort. Labor precautions discussed. Flowsheet Date 06/27/2020 Richardson Score Blood Edema Fundus Height Fundus Units Glucose Ketones Leukocytes Nitrite Labor Signs Protein Cervic Dilation Cervic Effacement Cervic Station Type Weight in lbs Pre/Post Dialysis Refused BP Diastolic BP Location Tested BP Systolic BP Type Fetus Heart Rate Present Fetus Movement Comments Flowsheet Date 06/27/2020 Richardson Score Blood Edema Fundus Height Fundus Units Glucose Ketones Leukocytes Nitrite Labor Signs Protein Cervic Dilation Cervic Effacement Cervic Station Type Weight in lbs Pre/Post Dialysis Refused BP Diastolic BP Location Tested BP Systolic BP Type Fetus Heart Rate Present Fetus Movement Comments Flowsheet Date 06/27/2020 Richardson Score Blood Edema Fundus Height Fundus Units Glucose Ketones Leukocytes Nitrite Labor Signs Protein Cervic Dilation Cervic Effacement Cervic Station neg trace 37 trace 1cm 30% -3 Type Weight in lbs Pre/Post Dialysis Refused Weight 243.528639436267 BP Diastolic BP Location Tested BP Systolic BP Type 86 135 Fetus Heart Rate Present A 138 Fetus Movement A Yes Comments Occasional contractions. Lab or precautions. Pt desires 39 week induction. Will schedule at next visit. Flowsheet Date 07/03/2020 Richardson Score Blood Edema Fundus Height Fundus Units Glucose Ketones Leukocytes Nitrite Labor Signs Protein Cervic Dilation Cervic Effacement Cervic Station 2+ 38 trace 1cm Type Weight in lbs Pre/Post Dialysis Refused Weight 244.241468082231 BP Diastolic BP Location Tested BP Systolic BP Type 96 L arm 153 sitting Fetus Heart Rate Present A 140 Fetus Movement A Yes Comments BP elevated. H/A this mornin g. Has slightly improved. Pt has now had 2 elevated bp's. I have discussed gestational hypertension and the recommendation for delivery. Pt is very happy and would like to proceed with mil. Will send over for cervidil induction. Flowsheet Date 07/22/2020 Richardson Score Blood Edema Fundus Height Fundus Units Glucose Ketones Leukocytes Nitrite Labor Signs Protein Cervic Dilation Cervic Effacement Cervic Station Type Weight in lbs Pre/Post Dialysis Refused Weight 225.826831979709 BP Diastolic BP Location Tested BP Systolic BP Type 84 R arm 126 sitting Fetus Heart Rate Present Fetus Movement Comments Flowsheet Date 08/15/2020 Richardson Score Blood Edema Fundus Height Fundus Units Glucose Ketones Leukocytes Nitrite Labor Signs Protein Cervic Dilation Cervic Effacement Cervic Station Type Weight in lbs Pre/Post Dialysis Refused Weight 223.009720956774 BP Diastolic BP Location Tested BP Systolic BP Type 87 R arm 134 sitting Fetus Heart Rate Present Fetus Movement Comments Flowsheet Date 08/28/2020 Richardson Score Blood Edema Fundus Height Fundus Units Glucose Ketones Leukocytes Nitrite Labor Signs Protein Cervic Dilation Cervic Effacement Cervic Station Type Weight in lbs Pre/Post Dialysis Refused BP Diastolic BP Location Tested BP Systolic BP Type Fetus Heart Rate Present Fetus Movement Comments Menstrual History Last Menstrual Date Menses Monthly On Bcp Conception Prior Menses Frequency Hcg Plus Date Menarche Onset Age 0110/06/2019 Genetic Screening And Infection History Question Response Note Mental Retardation/Autism false Patient's Age Will Be 35 Years Or Older At Estim ated Date of Delivery false Thalassemia (Malagasy, Chinese, Mediterranean, Or Background): MCV < 80 false Neural Tube Defect (Meningomyelocele, Spina Bifi da, Or Anencephaly) false Congenital Heart Defect false Down Syndrome false Mynor-Sachs (eg, Moravian, Cajun, Yi-Monument) f alse Byron Disease false Sickle Cell Disease Or Trait () false Hemophilia Or Other Blood Disorders false Muscular Dystrophy false Cystic Fibrosis false Van Zandt's Chorea false Intellectual Disability/Autism false If Yes, Was Person Tested For Fragile X? false Other Inherited Genetic Or Chromosomal Disorder false Maternal Metabolic Disorder (eg, Type 1 Diabetes , PKU) false Patient Or Baby's Father Had A Child With Defects Not Listed Above false Recurrent Loss, Or A Stillbirth false Medications (including Suppl ements, Vitamins, Herbs, OTC Drugs), Illicit/Recreational Drugs, Alcohol false If Yes, Agent(s) And Strength/Dosage false Any Other Genetic History false Live With Someone With TB Or Exposed To TB false Patient Or Partner Has History Of Genital Herpes false Rash Or Viral Illness Since Last Menstrual Perio d false History Of STD, Gonorrhea, Chlamydia, HPV, Syphi lis false Other Infection History false History of HIV false History of Hepatitis false Prior GBS-infected child false Hemoglobinopathy Or Carrier false Other Structural Defect false Recent Travel History Outside of Country false Delivery Information Delivery Date Delivery Type Labor Anesthesia Weeks Gestation Incision Type Labor Labor Length Hrs Delivered By Post Complications Tubal Sterilization Discharge Date Comments 0 Induce d Regional-Ep idural 38.6 false kpanyik GHTN/CF carrier+ Discharge Information Feeding Method Contraceptive Method Maternal HG B and HCT Levels Ob Episode Information Episode Created Date Number of Fetuses Patient Bloodtype Patient rh Status Prepregnancy Weight lbs Domestic Partner Domestic Partner Phone Father Name Review Consultant Status 07/12/20 20 1 DELETED Joseph Calculation Initial Joseph Date Initial Exam Date Initial Exam Provider Initial Ultrasound Date Last Menstrual Period Date Ultra Sound Weeks Gestation 0 Eighteen To Twenty Week Joseph Update Ultra Sound Date Fundal Height At Umbil Quickening Date Ultra Sound Latest Weeks Gestation Final Joseph Confirmed By Final Joseph Confirmed Date Final Joseph Date Ultra Sound Latest Days Gestation 0 0 Menstrual History Last Menstrual Date Menses Monthly On Bcp Conception Prior Menses Frequency Hcg Plus Date Menarche Onset Age Delivery Information Delivery Date Delivery Type Labor Anesthesia Weeks Gestation Incision Type Labor Labor Length Hrs Delivered By Post Complications Tubal Sterilization Discharge Date Comments 0 38.5 GHTN Discharge Information Feeding Method Contraceptive Method Maternal HG B and HCT Levels
--- OUTSIDE RECORDS SUMMARY | 2025-03-05 09:27 | XMS_ITS | Clinical Summary ---
Author Organization [facility] Address [address] [place] [address] Phone Care Team Providers Care Horse Trainer Name Role Phone Provider, None Primary Care Provider Unavailabl e Allergies No known active allergies Medications traMADol-acetam inophen (ULTRACET) 37.5-325 MG Tablet Take 1 Tab by mouth every 4 hours as needed for Pain. 12 Tab 0 6 Active Additional Information Patient not taking.Reported on 06/20/2021 albuterol (PROVENTIL HFA, VENTOLIN HFA) 108 (90 BASE) MCG/ACT Aerosol Solution take 2 Puffs by inhalation every 4 hours as needed for Wheezing. Active azithromycin (ZITHROMAX Z-LAILA) 250 MG Tablet 2 tab(s) daily for 1 day, then 1 tab(s) daily for days 2-5. 6 Tab 0 7 Active Additional Information Patient not taking.Reported on 06/20/2021 naproxen (NAPROSYN) 500 MG Tablet Take 1 Tab by mouth 2 times daily as needed for Moderate or more severe pain. 20 Tab 9 Active Additional Information Patient not taking.Reported on 06/20/2021 Social History Tobacco Use Types Packs/Day Years Used Date Smoking Tobacco: Every Day Cigarettes Smokeless Tobacco: Never Alcohol Use Standard Drinks/Week Comments No 0 (1 standard drink = 0.6 oz pur e alcohol) Comments No Sex and Gender Information Value Date Recorded Sex Assigned at Not on file Legal Sex Female 11:04 PM CDT Gender Identity Not on file Sexual Orientation Not on file Last Filed Vital Signs Vital Sign Reading Time Taken Comments Blood Pressure 133/74 06/20/2021 8:49 PM CDT Pulse 76 06/20/2021 8:49 PM CDT Temperature 36.9 C (98.5 F) 06/20/2021 2:11 PM CDT Respiratory Rate 20 06/20/2021 8:49 PM CDT Oxygen Saturation 99% 06/20/2021 8:49 PM CDT Inhaled Oxygen Concentration - - Weight 84.8 kg (187 lb) 06/20/2021 2:11 PM CDT Height 175.3 cm (5' 9) 06/20/2021 2:11 PM CDT Body Mass Index 27.62 06/20/2021 2:11 PM CDT Plan of Treatment Health Maintenance Due Date Last Done Comments Hepatitis C Virus (HCV) Screening 1997 TdaP Immunization 1997 Hepatitis B Immunization (1 of 3 - 19+ 3-dose series) 01/16/2016 Pap Smear 2018 Influenza Immunization (#1) 2024 SARS-COV-2 Immunization (2023- season) 2024 Respiratory Syncytial Virus (RSV) Immunization (Adult) (1 - 1-dose 75+ series) 01/16/2072 DTaP/Tdap/Td Immunization Discontinued 08/05/1999 Meningococcal Immunization (ACWY) Aged Out No longer eligible based on patient's age to complete this topic Pneumococcal Immunization Combined Aged Out No longer eligible b ased on patient's age to complete this topic Rotavirus Immunization Aged Out No lo nger eligible based on patient's age to complete this topic Care Teams Horse Trainer Relationship Specialty Start Date End Date Provider, None CONSTANZA PCP - General 04/07/18
--- OUTSIDE RECORDS SUMMARY | 2025-03-05 09:27 | XMS_ITS | Clinical Summary ---
Author Organization [facility] Address [address] [place] [address] Care Team Providers Care Underwriter Solicitation Director Name Role Phone Srinivasa Montoya MD Primary Care Provider [phone] [facility],non-owned Affiliates and Associated Physician Practices is amultiple site organization consisting of ambulatory clinics and hospital sitesin [place], [place], [place] and [place]. This disclosure is being madepursuant to the Care Everywhere program and may not contain all information available regarding this patient. Last updated 18.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 Gender Identity Not on file Sexual Orientation Not on file Last Filed Vital Signs Vital Sign Reading Time Taken Comments Blood Pressure 150/69 06/14/2020 11:58 AM CDT Pulse 102 06/14/2020 11:58 AM CDT Temperature 36.3 C (97.3 F) 06/21/2020 10:50 AM CDT Respiratory Rate - - Oxygen Saturation - - Inhaled Oxygen Concentration - - Weight - - Height - - Body Mass Index - - Plan of Treatment Health Maintenance Due Date Last Done Comments PAP SMEAR 1997 HIV SCREENING 01/16/2012 HEPATITIS C SCREENING 01/11/2015 DTAP/TDAP/TD VACCINES (1 - Tdap) 01/16/2016 HEPATITIS B VACCINE (1 of 3 - 19+ 3-dose series) 01/16/2016 COVID-19 VACCINE (1 - 2023-2 5 season) 2024 DEPRESSION SCREENING 10/04/2024 INFLUENZA VACCINE (Season Ended) 2025 ZOSTER VACCINE (1 of 2) 2047 HIB VACCINE Aged Out No longer eligi ble based on patient's age to complete this topic HPV VACCINE Aged Out No longer eligi ble based on patient's age to complete this topic MENINGOCOCCAL (Group B) VACC INE SHARED DECISION-MAKING Aged Out No longer eligibl e based on patient's age to complete this topic MENINGOCOCCAL GROUPS A/C/Y/W VACCINE Aged Out No longer eligible b ased on patient's age to complete this topic PNEUMOCOCCAL VACCINE Aged Out No long er eligible based on patient's age to complete this topic Insurance [facility] Care Teams Underwriter Solicitation Director Relationship Specialty Start Date End Date Srinivasa Montoya MD [address] [place] [id number] PCP - General 12/05/18
--- OUTSIDE RECORDS SUMMARY | 2025-03-05 09:27 | XMS_ITS | Clinical Summary ---
Author Organization [facility] Address [address] [place] [address] Care Team Providers Care Veneer Clipper Name Role Phone Mukund Decker MD Primary Care Provider + Allergies Active Allergy Reactions Criticality Noted Date Comments Levofloxacin Muscle pain Medium 09/04/2024 Possible tendonitis pain Perla Other (See comments) Low 10/02/2024 Throat closes Medications cetirizine (ZyrTEC) 10 mg tablet Take 1 tablet (10 mg total) by mouth daily Active ondansetron (ZOFRAN) 8 mg tablet Take 1 tablet (8 mg total) by mouth every 8 (eight) hours as needed for nausea or vomiting for up to 20 doses 20 tablet 5 Active albuterol 2.5 mg /3 mL (0.083 %) nebulizer solution Take 3 mL (2.5 mg total) by nebulization every 4 (four) hours as needed for wheezing 75 mL 3 5 Active budesonide-for moteroL (SYMBICORT) 80-4.5 mcg/actuation inhalerIndicat ions:Acute Asthma Attack,Mainten ance Therapy for Asthma Inhale 2 puffs 2 (two) times a day 20.4 each 5 5 Active montelukast (SINGULAIR) 10 mg tablet Take 1 tablet (10 mg total) by mouth nightly 90 tablet 3 5 026 Active montelukast (SINGULAIR) 10 mg tablet Take 1 tablet (10 mg total) by mouth nightly 90 tablet 3 5 025 Discontin ued(Reord er) budesonide-for moteroL (SYMBICORT) 80-4.5 mcg/actuation inhalerIndicat ions:Acute Asthma Attack,Mainten ance Therapy for Asthma Inhale 2 puffs 2 (two) times a day 5 each 5 5 025 Discontin ued(Reord er) albuterol 2.5 mg /3 mL (0.083 %) nebulizer solution Take 3 mL (2.5 mg total) by nebulization every 4 (four) hours as needed for wheezing 75 mL 3 5 025 Discontin ued(Reord er) Hospital, Clinic, or Other Facility Administered Medication Ordered Dose Route Frequency Start Date End Date Status ipratropium-albuteroL (DUO-NEB) 0.5-2.5 mg/3 mL nebulizer solution 3 mLIndications:Mild persistent asthma without complication 3 mL nebu 4 times daily (respiratory care specialist) 10/31/2024 Active Active Problems Problem Noted Date Diagnosed Date Nausea and vomiting 12/07/2024 Diarrhea 12/07/2024 Gastroenteritis, acute 12/07/2024 Assessment & Plan (12/07/2024 12:41 PM CERTIFIED FORKLIFT OPERATOR): Significantly increase oral fluids Fluid replacement with electrolytes include Pedialyte, Gatorade If experiencing diarrhea and/or vomiting, drink 4-8 oz of fluids after every episode until symptoms resolve Good handwashing Try to minimize exposure to others Monitor for signs/symptoms of dehydration or worsening of symptoms Get adequate rest Diet as tolerated, BRAT (bananas, rice, applesauce, toast) is good to help reinitiate solids Follow up if symptoms are not resolving Annual physical exam 10/03/2024 Assessment & Plan (10/03/2024 7:23 PM CERTIFIED FORKLIFT OPERATOR): Pt presents for Annual Health exam: Today patient is: stable - Have discussed sig PMH, Current meds/treatments, labs, images/test, and changes made by specialists if following. - ADL's, SDoH, and Safety discussed. - Education on lifestyle modification diet, exercise, wellness with handouts given as appropriate. - Age-appropriate and annual Vaccinations discussed. - Age approximate cancer screening discussed and referrals sent. - Pt has requested STI screening: No - Well-woman exam needed: Yes - Cessation/avoidance counseling on Tobacco/Vape/MJ/ETOH/Drugs and the health risks associated with use and benefits of quitting or never starting. Pt will think about my offer. - Will continue will annual exam. Class 1 obesity due to exces s calories without serious comorbidity with body mass index (BMI) of 30.0 to 30.9 in adult 10/03/2024 Assessment & Plan (10/03/2024 7:26 PM CERTIFIED FORKLIFT OPERATOR): Body mass index is 30.72 kg/m . CLASSIFICATION Obesity: 30 or greater Class 1 obesity: 30 to less than 35 Wt Readings from Last 3 Encounters: 10/02/24 208 lb (94.3 kg) 08/04/13 145 lb (83%, Z= 0.96)* * Growth percentiles are based on CDC (Girls, 2-20 Years) data. Plan - Encouraged pt to continue with lifestyle modification: Diet/exercise, food tracking apps, diary to reflect on relationship with food. - Have educated patient that Mediterranean diet is widely accepted as the most balanced diet for both weight loss and sustained weight loss. Handout given. - Education given on risk associated with elevated BMI - Will set up follow up apt to discuss lifestyle modification, nutrition services, weight loss clinic, medications, CBT - Labs: CBC, CMP, TSH, A1c, lipids as needed to rule out medical causes. - Referrals today: No - BMI Follow-up includes: nutrition counseling, exercise counseling, and education provided. Asthma 07/31/2013 Overview (01/08/2017): Asthma Assessment & Plan (10/03/2024 7:18 PM CERTIFIED FORKLIFT OPERATOR): Chronic: stable No red flag symptoms reported, Recent Exacerbation 08/2024: Treated for 3 days for PNA, treated with flouroquinolone Work exposure. Meds: Symbicort daily per AMRITA protocol, Alb Neb as needed Has peak flow device and uses it Will make follow up to get asthma action plan Resolved Problems Problem Noted Date Diagnosed Date Resolved Date Asthma with acute exacerbation in adult 10/31/2024 11/07/2024 Tendonosis in the setting of Abx. 10/03/2024 11/07/2024 Assessment & Plan (10/03/2024 7:20 PM CERTIFIED FORKLIFT OPERATOR): S/p flouroquinolone use no with tendinosis in ankles and hands. Will continue to follow Pre-existing hypertension in obstetric context in first trimester 08/08/2015 11/07/2024 Overview (10/31/2024): Unsp pre-existing htn comp , third trimester;Recorded Elsewhere: No Location: [facility] Source: EHR Chronic: N Practice ID: [id number] Billable Time: 02:00:00 PM Encounters Date Type Department Care Team Description 02/28/2025 Nurse Triage [facility] Medical [facility] Primary Care at [address] [place] [address] Chayito Kelly RN 12/07/2024 11:30 AM CERTIFIED FORKLIFT OPERATOR Office Visit [facility] Primary Care at [address] [place] [address] Polina Harden NP Nausea and vomiting, unspecified vomiting type (Primary Dx); Diarrhea, unspecified type; Gastroenteritis, acute from Last 3 Months Immunizations Immunization Administration Dates Next Due Influenza, Unspecified 10/31/2024(Deferr ed: Patient Refused),07/10/2024(Deferred: Patient Refused) Pneumococcal Conjugate Pcv20 11/07/2024 Surgical History Surgery Date Site/Laterality Comments CHOLECYSTECTOMY March 2023 TUBAL LIGATION Sep 2020 Medical History Medical History Date Comments Asthma Family History Medical History Relation Name Comments Heart attack Father Hypertension Father Stroke Mother Relation Name Status Comments Father Mother Alive Social History Tobacco Use Types Packs/Day Years Used Date Smoking Tobacco: Every Day Cigarettes 0.3 4.4 Started: 10/04/2020 Vaping Started: 2020 Tobacco Cessation:Ready to Q uit: Not Asked; Counseling Given: Not Answered PHQ-2 Answer Date Recorded PHQ-2 Total Score (If total score is 3 or more points, staff should administer the PHQ-9) 0 10/02/2024 PHQ-9 Answer Date Recorded PHQ-9 Total Score 4 10/02/2024 Personal Safety Answer Date Recorded Have you ever been in or are you currently in a harmful physical or emotional relationship or is someone making you feel afraid or unsafe? Denies 08/16/2024 Comments No Sex and Gender Information Value Date Recorded Sex Assigned at Not on file Legal Sex Female 3:04 AM CERTIFIED FORKLIFT OPERATOR Gender Identity Not on file Sexual Orientation Not on file Obstetrics History Para Term AB IAB SAB Ectopic Multiple Livin g Live Births 2 1 1 1 1 Date Outcome GA Total Labor Labor/2nd/3rd Weight Sex Type Anes PTL Gisele A1 A5 Name Clin 2014 Term Vag-S pont Living Complications:Hypertension Last Filed Vital Signs Vital Sign Reading Time Taken Comments Blood Pressure 130/70 12/07/2024 11:42 AM CERTIFIED FORKLIFT OPERATOR Pulse 116 12/07/2024 11:42 AM CERTIFIED FORKLIFT OPERATOR Temperature 36.6 C (97.9 F) 12/07/2024 11:42 AM CERTIFIED FORKLIFT OPERATOR Respiratory Rate 20 12/07/2024 11:42 AM CERTIFIED FORKLIFT OPERATOR Oxygen Saturation 99% 12/07/2024 11:42 AM CERTIFIED FORKLIFT OPERATOR Inhaled Oxygen Concentration - - Weight 94.4 kg (208 lb 3.2 oz) 12/07/2024 11:42 AM CERTIFIED FORKLIFT OPERATOR Height 175.3 cm (5' 9.02) 12/07/2024 11:[address] Body Mass Index 30.73 12/07/2024 11:42 AM CERTIFIED FORKLIFT OPERATOR Plan of Treatment Health Maintenance Due Date Last Done Comments Cervical Cancer Screening 1997 DTaP/Tdap/Td Vaccine (1 - Tdap) 01/16/2008 Varicella Vaccines (1 of 2 - 13+ 2-dose series) 2010 Influenza Vaccine (Season Ended) 2025 Depression Screening 10/02/2025 10/02/2024, 10/02/2024 Regular Well Visit/Exam 18-64 10/02/2025 10/02/2024 Hepatitis B Screening Completed 09/04/2024 Hepatitis C Screening Completed 09/04/2024 Pneumococcal vaccine <65 Completed 11/07/2024 HPV Vaccines Aged Out No longer eligi ble based on patient's age to complete this topic Insurance MONICA NAQVICE MONICA LINDGIANCE Care Teams Veneer Clipper Relationship Specialty Start Date End Date Mukund Decker MD [address] [address] PCP - General Family Medicine 10/02/24
--- OUTSIDE RECORDS SUMMARY | 2025-03-05 09:27 | XMS_ITS | Referral Summary ---
Author Organization [facility] o[facility] Address [address] [place] [address] Care Team Providers Care Aerobics Teacher Name Role Phone Mukund Decker MD Primary Care Provider + Encounters Date Type Department Care Team Description 02/28/2025 Nurse Triage [facility] Medical [facility] Primary Care at [address] [place] [address] Chayito Kelly RN 12/07/2024 11:30 AM GRADE TAMPER Office Visit [facility] Primary Care at [address] [place] [address] Polina Harden NP Nausea and vomiting, unspecified vomiting type (Primary Dx); Diarrhea, unspecified type; Gastroenteritis, acute from Last 3 Months Allergies Active Allergy Reactions Criticality Noted Date [...] for up to 20 doses 20 tablet Active albuterol 2.5 mg /3 mL (0.083 [...] complication 3 mL nebu 4 times daily (correspondence transcriber) 10/31/2024 Active Active Problems Problem Noted Date Diagnosed Date Nausea and vomiting 12/07/2024 Diarrhea 12/07/2024 Gastroenteritis, acute 12/07/2024 Assessment & Plan (12/07/2024 12:41 PM GRADE TAMPER): Significantly increase oral fluids Fluid replacement with [...] 10/03/2024 Assessment & Plan (10/03/2024 7:23 PM GRADE TAMPER): Pt presents for Annual Health exam: Today [...] 10/03/2024 Assessment & Plan (10/03/2024 7:26 PM GRADE TAMPER): Body mass index is 30.72 kg/m . [...] Asthma Assessment & Plan (10/03/2024 7:18 PM GRADE TAMPER): Chronic: stable No red flag symptoms reported, [...] 11/07/2024 Assessment & Plan (10/03/2024 7:20 PM GRADE TAMPER): S/p flouroquinolone use no with tendinosis in ankles and hands. Will continue to follow Pre-existing hypertension in obstetric context in first trimester 08/08/2015 11/07/2024 Overview (10/31/2024): Unsp pre-existing htn comp , third trimester;Recorded Elsewhere: No Location: [facility] Source: EHR Chronic: N Practice ID: [id number] Billable Time: 02:00:00 PM Immunizations Immunization Administration Dates Next Due Influenza, Unspecified 10/31/2024(Deferr ed: Patient Refused),07/10/2024(Deferred: Patient Refused) Pneumococcal Conjugate Pcv20 11/07/2024 Social History Tobacco Use Types Packs/Day Years [...] on file Legal Sex Female 3:04 AM GRADE TAMPER Gender Identity Not on file Sexual Orientation Not on file Last Filed Vital Signs Vital Sign Reading Time Taken Comments Blood Pressure 130/70 12/07/2024 11:42 AM GRADE TAMPER Pulse 116 12/07/2024 11:42 AM GRADE TAMPER Temperature 36.6 C (97.9 F) 12/07/2024 11:42 AM GRADE TAMPER Respiratory Rate 20 12/07/2024 11:42 AM GRADE TAMPER Oxygen Saturation 99% 12/07/2024 11:42 AM GRADE TAMPER Inhaled Oxygen Concentration - - Weight 94.4 kg (208 lb 3.2 oz) 12/07/2024 11:42 AM GRADE TAMPER Height 175.3 cm (5' 9.02) 12/07/2024 11:42 AM C Body Mass Index 30.73 12/07/2024 11:42 AM GRADE TAMPER Plan of Treatment Not on file Insurance [employer] ALLEGIANCE CIGNA ALLEGIANCE [id number] Care Teams Aerobics Teacher Relationship Specialty Start Date End Date Mukund Decker MD [address] [place] [address] PCP - General Family Medicine 10/02/24
--- OUTSIDE RECORDS SUMMARY | 2025-03-05 09:27 | XMS_ITS | Clinical Summary ---
Author Organization [facility] [employer] [place] Address [address] [place] [phone] Care Team Providers Care Tool And Die Maker Apprentice Name Role Phone Unavailable Primary Care Provider Unavailabl e Allergies Active Allergy Reactions Criticality Noted Date Comments Levofloxacin Muscle Pain Low 09/04/2024 Possible tendonitis pain Medications albuterol sulfate HFA 90 mcg/actuation aerosol inhaler Take 1 Puff by inhalation every 4 hours as needed for Shortness of Breath. Active benzonatate (TESSALON) 100 mg capsule Take 100 mg by mouth 3 times daily as needed for Cough. Active albuterol (PROVENTIL,VENTOL IN) 2.5 mg /3 mL (0.083 %) Solution for Nebulization Take 2.5 mg by inhalation every 4 hours as needed for Shortness of Breath or Wheezing. Active budesonide-formot Eva (SYMBICORT) 80-4.5 mcg/actuation HFA Aerosol Inhaler Take 2 Puffs by inhalation 2 times daily. Active predniSONE (DELTASONE) 50 mg tablet Take 1 Tablet by mouth daily. Active fluticasone propionate (FLONASE) 50 mcg/spray [place], Suspension nasal inhaler Administer 2 Sprays in each nostril daily. 16 Gram Active Active Problems No known active problems Encounters Date Type Department Care Team Description 01/02/2025 External Device Data [place] ABSTRACTION Provider, Abstract 12/09/2024 External Device Data [place] ABSTRACTION Provider, Abstract 12/08/2024 External Device Data [place] AB[place]CTION Provider, Abstract 12/06/2024 Results Follow-Up [facility] at [facility] [employer] [address] [place] [address] Constance Zee ANP TSH, LIPID PANEL, COMPREHENSIVE METABOLIC PANEL 12/05/2024 External Device Data [place] ABSTRACTION Provider, Abstract 12/04/2024 2:00 PM ECONOMICS DEPARTMENT CHAIR Office Visit [facility] at [facility] [place] [address] [place] [address] Screening for condition (Primary Dx) from Last 3 Months Social History Tobacco Use Types Packs/Day Years Used Date Smoking Tobacco: Never Assessed Comments Unknown Sex and Gender Information Value Date Recorded Sex Assigned at Not on file Legal Sex Female 5:10 AM CDT Gender Identity Not on file Sexual Orientation Not on file Last Filed Vital Signs Vital Sign Reading Time Taken Comments Blood Pressure 126/78 12/04/2024 2:00 PM ECONOMICS DEPARTMENT CHAIR Pulse 92 08/21/2024 9:56 AM ECONOMICS DEPARTMENT CHAIR Temperature 36.9 C (98.5 F) 08/21/2024 9:56 AM ECONOMICS DEPARTMENT CHAIR Respiratory Rate 18 08/21/2024 9:56 AM ECONOMICS DEPARTMENT CHAIR Oxygen Saturation 97% 08/21/2024 9:56 AM ECONOMICS DEPARTMENT CHAIR Inhaled Oxygen Concentration - - Weight 95.2 kg (209 lb 12.8 oz) 12/04/2024 2:00 PM ECONOMICS DEPARTMENT CHAIR Height 175.3 cm (5' 9) 12/04/2024 2:00 PM ECONOMICS DEPARTMENT CHAIR Body Mass Index 30.98 12/04/2024 2:00 PM ECONOMICS DEPARTMENT CHAIR Plan of Treatment Health Maintenance Due Date Last Done Comments DTAP/TDAP/TD VACCINES (1 - Tdap) 01/16/2016 HEPATITIS B VACCINES (1 of 3 - 19+ 3-dose series) 01/16/2016 CERVICAL CANCER SCREENING 2018 HPV/Cotest (21-29) 2018 PAP SMEAR 2018 INFLUENZA VACCINE (#1) 2024 HPV VACCINES Aged Out No longer eligi ble based on patient's age to complete this topic Procedures Procedure Name Priority Date/Time Associated Diagnosis Comments CBC WITH DIFFERENTIAL Routine 12/04/2024 1:58 PM ECONOMICS DEPARTMENT CHAIR Screening for condition COMPREHENSIVE METABOLIC PANEL Routine 12/04/2024 1:58 PM ECONOMICS DEPARTMENT CHAIR Screening for condition LIPID PANEL Routine 12/04/2024 1:58 PM ECONOMICS DEPARTMENT CHAIR Screening for condition TSH Routine 12/04/2024 1:58 PM ECONOMICS DEPARTMENT CHAIR Screening for condition from Last 3 Months Results * (ABNORMAL) CBC WITH DIFFERENTIAL (12/04/2024 1:58 PM ECONOMICS DEPARTMENT CHAIR) Pathologist [facility] WBC 6.2 3.8 - 10.8 Thousand/u L [facility] RBC 3.78(L) 3.80 - 5.10 Million/uL [facility] HEMOGLOBIN 10.5(L) 11.7 - 15.5 g/dL [facility] HEMATOCRIT 32.6(L) 35.0 - 45.0 % [facility] MCV 86.2 80.0 - 100.0 fL [facility] MCH 27.8 27.0 - 33.0 pg [facility] MCHC 32.2 32.0 - 36.0 g/dL [facility] Comment: For adults, a slight decrease in the calculated MCHC value (in the range of 30 to 32 g/dL) is most likely not clinically significant; however, it should be interpreted with caution in correlation with other red cell parameters and the patient's clinical condition. RDW 15.2(H) 11.0 - 15.0 % [facility] PLATELETS 434(H) 140 - 400 Thousand/u L [facility] MPV 10.8 7.5 - 12.5 fL [facility] NEUTROPHIL ABSOLUTE 3,236 1,500 - 7,800 cells/uL [facility] LYMPHOCYTE ABSOLUTE 2,108 850 - 3,900 cells/uL [facility] MONOCYTE ABSOLUTE 589 200 - 950 cells/uL [facility] EOSINOPHIL ABSOLUTE 217 15 - 500 cells/uL [facility] BASOPHILS ABSOLUTE 50 0 - 200 cells/uL [facility] NEUTROPHIL 52.2 % [facility] LYMPHOCYTES 34.0 % [facility] MONOCYTE 9.5 % [facility] EOSINOPHILS 3.5 % [facility] BASOPHILS 0.8 % [facility] Comment: Test Performed at: [facility] [address] [facility] [place] [address] GloryShellie Roque MD Blood 12/04/2024 1:58 PM ECONOMICS DEPARTMENT CHAIR 12/05/2024 3:33 AM ECONOMICS DEPARTMENT CHAIR Patricia Greer ANP HEMATOLOGY ORDERABLES Final Result Performing Organization Address [facility] Co de Phone Number [facility] [phone] [facility] [address] [place] [phone] * TSH (12/04/2024 1:58 PM ECONOMICS DEPARTMENT CHAIR) TSH 0.57 mIU/L [facility] Comment: Reference Range > or = 20 Years 0.40-4.50 Ranges First trimester 0.26-2.66 Second trimester 0.55-2.73 Third trimester 0.43-2.91 Test Performed at: [facility] [address] [place] [phone] GloryShellie Roque MD Blood 12/04/2024 1:58 PM ECONOMICS DEPARTMENT CHAIR 12/05/2024 3:33 AM ECONOMICS DEPARTMENT CHAIR Patricia Greer ANP CHEMISTRY ORDERABLES Final R esult Performing Organization Address City/[facility]/ZIP Co de Phone Number [facility] [phone] [facility] [address] [place] [phone] * LIPID PANEL (12/04/2024 1:58 PM ECONOMICS DEPARTMENT CHAIR) CHOLESTEROL 130 <200 mg/dL [facility] HDL 59 > OR = 50 mg/dL [facility] TRIGLYCERIDE 45 <150 mg/dL [facility] LDL CALCULATED 58 mg/dL (calc) [facility] Comment: Reference range: <100 Desirable range <100 mg/dL for primary prevention; <70 mg/dL for patients with CHD or diabetic patients with > or = 2 CHD risk factors. LDL-C is now calculated using the Cynthia calculation, which is a validated novel method providing better accuracy than the Friedewald equation in the estimation of LDL-C. Salomon RENTERIA et al. GIANNA. 2013;310(19): 0604-1742 (http://education.MapMyFitness/faq/CDB493) CHOL/HDL RATIO 2.2 <5.0 (calc) [facility] NON-HDL CHOLESTEROL 71 <130 mg/dL (calc) [facility] Comment: For patients with diabetes plus 1 major ASCVD risk factor, treating to a non-HDL-C goal of <100 mg/dL (LDL-C of <70 mg/dL) is considered a therapeutic option. Test Performed at: [facility] [address] [place] [address] Adeline Roque MD Blood 12/04/2024 1:58 PM ECONOMICS DEPARTMENT CHAIR 12/05/2024 3:33 AM ECONOMICS DEPARTMENT CHAIR us Patricia Greer [facility] CHEMISTRY ORDERABLES Final R esult [facility] [phone] [facility] [address] [place] [address] * COMPREHENSIVE METABOLIC PANEL (12/04/2024 1:58 PM ECONOMICS DEPARTMENT CHAIR) GLUCOSE 75 65 - 99 mg/dL [facility] Comment: Fasting reference interval BUN 11 7 - 25 mg/dL [facility] CREATININE 0.73 0.50 - 0.96 mg/dL [facility] GFR 116 > OR = 60 mL/min/1. 73m2 [facility] BUN/CREAT RATIO SEE NOTE: 6 - 22 (calc) [facility] Comment: Not Reported: BUN and Creatinine are within reference range. SODIUM 137 135 - 146 mmol/L [facility] POTASSIUM 4.1 3.5 - 5.3 mmol/L [facility] CHLORIDE 104 98 - 110 mmol/L [facility] CO2 23 20 - 32 mmol/L [facility] CALCIUM 9.5 8.6 - 10.2 mg/dL [facility] TOTAL PROTEIN 7.4 6.1 - 8.1 g/dL [facility] ALBUMIN 4.6 3.6 - 5.1 g/dL [facility] GLOBULIN 2.8 1.9 - 3.7 g/dL (calc) [facility] ALBUMIN/GLOBULIN RATIO 1.6 1.0 - 2.5 (calc) [facility] BILIRUBIN TOTAL 0.9 0.2 - 1.2 mg/dL [facility] ALKALINE PHOSPHATASE 65 31 - 125 U/L [facility] AST 20 10 - 30 U/L [facility] ALT 17 6 - 29 U/L [facility] Comment: Test Performed at: [facility] [address] [place] [address] Adeline Roque MD Blood 12/04/2024 1:58 PM ECONOMICS DEPARTMENT CHAIR 12/05/2024 3:33 AM ECONOMICS DEPARTMENT CHAIR us Patricia Greer [facility] CHEMISTRY ORDERABLES Final R esult [facility] [phone] [facility] [address] [place] [address] from Last 3 Months Insurance OPEN ACCESS ALLEGIAN OPEN ACCESS
--- NOTE | 2025-03-05 10:12 | ED_ITS ---
HPI - General Adult General Chief complaint: Animal Bite Stated complaint: Insect Bite/Right Arm Time Seen by Provider: 03/05/25 09:55 Source: patient and RN notes reviewed Mode of arrival: ambulatory Limitations: no limitations History of Present Illness HPI narrative: 30-year-old female presents Express Care complaining of spider bites to her right arm. Patient said she was camping proximally 2 days ago when she suddenly small spider on her delete that it better multiple times. Patient reports that she has redness and swelling and itchiness to the sites. Patient is concerned that 1 of the bites as became infected because of the worsening swelling and pain. Patient denies any numbness or tingling, fevers, or any other symptoms. Patient has not used any [id number] will for symptoms. Patient denies spider pain a brown recluse or any other poisonous species. Related Data Home Medications ?Medication ?Instructions ?Recorded ?Confirmed ?Last Taken ?Type albuterol sulfate 2.5 mg/3 mL 2.5 mg inhalation Q4H PRN 08/13/24 08/17/24 Unknown History (0.083 %) solution for nebulization Shortness Of Breath Or Wheezing Allergies Allergy/AdvReac Type Severity Reaction Status Date / Time aston Allergy Severe Anaphylaxis Verified 08/13/24 14:14 Review of Systems Review of Systems: CONSTITUTIONAL: Denies fever, chills, or sweats. EYES: Denies visual changes, redness, or discharge. ENT: Denies rhinorrhea, congestion, sore throat, or otalgia. CARDIOVASCULAR: Denies chest pain, palpitations, or edema. RESPIRATORY: Denies cough or dyspnea. GASTROINTESTINAL: Denies abdominal pain, nausea, vomiting, or diarrhea. GENITOURINARY: Denies dysuria or hematuria. SKIN: Positive for itchy and spider bites. MUSCULOSKELETAL: Denies back pain, joint pain, or myalgia. NEUROLOGIC: Denies headache, numbness, or weakness. PSYCHIATRIC: Denies anxiety or depression. All other systems reviewed are negative, except as documented in HPI. [facility] Past Medical History Medical History Depression Anxiety Asthma Surgical History Surgical History Surgical history unknown Hx laparoscopic cholecystectomy lap marley 03/12/23 Hx of tubal ligation 2019 Family History Family History Mother Uterine fibroid Cerebrovascular accident Father Heart attack Other Heart disease Sepsis Social History Social History Smoking packs per day: 1 Smoking cigarettes per day: 20.0 Years smoked: 8 Smoking pack-years: 8.00 Smoking status: Former smoker Tobacco type: e-cigarettes/vaping Second hand tobacco smoke exposure: Yes Smoking end date: 10/04/19 Additional smoking assessment comments: QUIT CIGARETTES 2019, NOW VAPING Alcohol intake: never Alcohol use details: socially/occassionally Substance use: current Substance use type: marijuana Last use: 08/16/24 Do You Feel Safe in your Home?: Yes Lack of Transportation: No Lack of Food: Never True Current Housing: I Have Housing Concerned About Future Housing: No Difficulty Paying Gas/Electric Bills: No Difficulty Paying for Meds: No Currently Unemployed: No Education: High School Diploma/GED Difficulty w/ Childcare or Family Care: No Living arrangements: with family Occupation/Education: 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 There is no relevant family history pertinent to the patient complaint. Exam Narrative: GENERAL: This is a well-nourished, well-developed adult, in no apparent distress. They are non ill-appearing, nontoxic appearing. HEAD: normocephalic, atraumatic. EYES: Sclera clear/white. Conjunctiva normal. Vision is grossly intact. Extraocular movements intact EARS: External ears normal, Hearing grossly intact. NOSE: External nose normal THROAT: Mucous membranes moist, NECK: Neck supple CARDIOVASCULAR: Regular rate and rhythm RESPIRATORY: Respiratory rate normal, respiratory effort nonlabored, no respiratory distress SKIN: Right arm: There are 2 puncture sites located to the proximal anterior forearm and distal anterior bicep. They are erythematous. Forearm lesion measuring approximately 2 cm x 2 cm with induration and tenderness to palpation. No area of fluctuance. Bicep lesion without induration or flare area of fluctuance. Measuring approximately 1 cm x 1 cm. No exudate present. NEURO: awake, alert, and oriented to person, place and time. There were no obvious focal neurologic abnormalities. EXTREMITIES: No joint tenderness, effusion, or edema noted. BACK: Nontender without deformity. No CVA tenderness. Course Course Emergency Course: Portions of this record may have been created with voice recognition software Level of Care: Express Care Visit Vital Signs Vital signs: Vital Signs Temperature 98.0 F 03/05/25 09:20 Pulse Rate 89 03/05/25 09:20 Respiratory Rate 20 03/05/25 09:20 Blood Pressure 119/72 03/05/25 09:20 Pulse Oximetry 100 03/05/25 09:20 Oxygen Delivery Room Air 03/05/25 09:20 Temperature 98.0 F 03/05/25 09:20 Pulse Rate 89 03/05/25 09:20 Respiratory Rate 20 03/05/25 09:20 Blood Pressure 119/72 03/05/25 09:20 Pulse Oximetry 100 03/05/25 09:20 Oxygen Delivery Room Air 03/05/25 09:20 Reviewed Medical Decision Making MDM Narrative Medical decision making narrative: Likely allergic reaction to bug bite. Right lower forearm appears to be developing cellulitis. Will treat with cephalexin. Also prescribe Kenalog cream to help with itchiness and swelling. Discussed physical exam findings. Advised supportive measures and signs/symptoms to go to the ER. Pt is a ppropriate for outpt treatment and f/u. Differential Diagnosis Differential Diagnosis: Cellulitis, insect bite, allergic reaction Vital Signs Vital Signs: Vital Signs Temperature 98.0 F 03/05/25 09:20 Pulse Rate 89 03/05/25 09:20 Respiratory Rate 20 03/05/25 09:20 Blood Pressure 119/72 03/05/25 09:20 Pulse Oximetry 100 03/05/25 09:20 Oxygen Delivery Room Air 03/05/25 09:20 Temperature 98.0 F 03/05/25 09:20 Pulse Rate 89 03/05/25 09:20 Respiratory Rate 20 03/05/25 09:20 Blood Pressure 119/72 03/05/25 09:20 Pulse Oximetry 100 03/05/25 09:20 Oxygen Delivery Room Air 03/05/25 09:20 Critical Care Time Critical Care Time Critical Care Time: No Discharge Plan Discharge Clinical Impression: Insect bite Qualifiers: Encounter type: initial encounter Site of insect bite: upper arm Laterality: right Qualified Code(s): S40.861A - Insect bite (nonvenomous) of right upper arm, initial encounter Patient Disposition: Home Condition: Stable Instructions: Antibiotic Form, Insect Bite or Sting (ED) Additional Instructions: Take the antibiotics as directed. Apply the steroid cream to the affected area as directed. Wash the skin daily with mild soap and water. Avoid itching or scratching the bites. He may also take Zyrtec or Trudy as needed for itchiness or allergy symptoms. Follow-up PCP in 3-5 days. Developed any new or worsening redness, swelling, pain, fevers, or any other concerns please go to the ER immediately. Patient Language: Khmer Prescriptions: New cephalexin 500 mg capsule 500 mg PO Q6H 7 Days Qty: 28 0RF triamcinolone acetonide 0.1 % lotion 1 applic topical BID 7 Days Qty: 60 0RF No Action albuterol sulfate 2.5 mg /3 mL (0.083 %) Solution For Nebulization 2.5 mg INHALATION Q4H PRN (Reason: Shortness Of Breath Or Wheezing) prednisone 50 mg tablet 50 mg PO DAILY Qty: 5 0RF benzonatate 100 mg capsule 100 mg PO TID Qty: 30 0RF albuterol sulfate 2.5 mg /3 mL (0.083 %) solution for nebulization 2.5 mg inhalation Q4H PRN (Reason: shortness of breath or wheezing) Qty: 75 0RF albuterol sulfate 90 mcg/actuation aerosol powdr breath activated 2 inhalation INHALATION Q4H PRN (Reason: shortness of breath or wheezing) Qty: 1 0RF albuterol sulfate 90 mcg/actuation HFA aerosol inhaler 1 inh inhalation QID PRN (Reason: shortness of breath or wheezing) Qty: 6.7 0RF prednisone 20 mg tablet 40 mg PO DAILY 5 Days Qty: 10 0RF budesonide-formoterol [Breyna] 80-4.5 mcg/actuation HFA aerosol inhaler 2 puff inhalation Q12H Qty: 10.2 1RF levofloxacin 750 mg tablet 750 mg PO DAILY Qty: 5 0RF Follow-up/Referrals: PHYSICIAN NOT ON STAFF,NONSTAFF [Primary Care Provider] - Stand Alone Forms: Work/School Release IP Time of Disposition: 09:59
== END 2025-03-05 10:04 | disposition home or self-care (01) ==
DX: S50.861A Insect bite (nonvenomous) of right forearm, initial encounter (principal); S40.861A Insect bite (nonvenomous) of right upper arm, initial encounter; W57.XXXA Bitten or stung by nonvenomous insect and other nonvenomous arthropods, initial encounter; F17.290 Nicotine dependence, other tobacco product, uncomplicated; J45.909 Unspecified asthma, uncomplicated
CPT/HCPCS: 99213; G0463